=== PATIENT | female | born 1950 | race Caucasian/White ===

== ENCOUNTER 2020-11-29 15:23 | Outpatient (RCR) | payer MEDICARE, SELFPAY ==
[2016-10-19 19:54] VITALS: BMI 23.1
== END 2020-11-29 23:59 ==
LOC: IMMUN 15:23
PROVIDERS: PCP Internal Medicine; Referring Provider Family Medicine; Visit Provider Family Medicine
DX: Z23 Encounter for immunization (principal)
CPT/HCPCS: 0011A; 0012A; 91301

== ENCOUNTER 2023-04-08 18:58 | Inpatient (IN) | payer MEDICARE, SELFPAY ==
[2023-04-08 19:00] VITALS: BP 72/48; PULSE 125; RESP 16; TEMP 36.6; O2SAT 93; BMI 18.3
--- NOTE | 2023-04-08 19:02 | EDS_ITS ---
HPI History of Present Illness Chief Complaint: Hypotension [facility] Medical History (Updated 04/08/23 @ 22:[address] Lucho Moeller MD) Rheumatoid arthritis Skin cancer Home Medications Ibandronate Sodium [Boniva] 150 mg PO Q30D 10/19/16 [History Last Taken Unknown] Omeprazole [Prilosec] 40 mg PO DAILY 10/19/16 [History Last Taken Unknown] acetaminophen 500 mg tablet 500 mg PO QHS 10/19/16 [History Last Taken Unknown] aspirin 81 mg chewable tablet 81 mg PO DAILY@0800 10/19/16 [History Last Taken Unknown] benzonatate 100 mg capsule 100 mg PO 4X/DAY PRN PRN Cough ##20 10/19/16 [Rx Last Taken Unknown] calcium carbonate 600 mg calcium (1,500 mg) tablet 600 mg PO DAILY 10/19/16 [History Last Taken Unknown] cholecalciferol (vitamin D3) 125 mcg (5,000 unit) capsule 5,000 unit PO DAILY 10/19/16 [History Last Taken Unknown] levothyroxine 100 mcg tablet 100 mcg PO DAILY 10/19/16 [History Last Taken Unknown] rosuvastatin 10 mg tablet 10 mg PO DAILY 10/19/16 [History Last Taken Unknown] Allergy/AdvReac Type Severity Reaction Status Date / Time Penicillins Allergy Unknown Verified 04/08/23 19:05 Family History (Updated 04/08/23 @ 22:[address] Lucho Moeller MD) Other Colon cancer Heart disease Rheumatoid arthritis Surgical History (Updated 04/08/23 @ 22:[address] Lucho Moeller MD) H/O wrist surgery History of ankle surgery Social History Smoking Status: Former smoker EXAM Physical Exam Const Vital Signs: 04/08/23 19:00 04/08/23 19:08 04/08/23 19:09 Temperature 98 F Temperature Source Temporal Pulse Rate 125 H 118 H Respiratory Rate 16 24 H Respiratory Effort Respiratory Pattern Blood Pressure 72/48 L 71/47 L Blood Pressure Mean 56 55 Pulse Ox 93 97 Oxygen Delivery Method Room Air Room Air Nasal Cannula Oxygen Flow Rate (L/min) 2 04/08/23 19:34 04/08/23 19:36 04/08/23 19:46 Temperature 97.2 F L Temperature Source Temporal Pulse Rate 114 H 106 H Respiratory Rate 22 H 20 H Respiratory Effort Normal Non-Labored Respiratory Pattern Normal Blood Pressure 109/84 H 125/64 H Blood Pressure Mean 92 84 Pulse Ox 97 100 Oxygen Delivery Method Nasal Cannula Nasal Cannula Oxygen Flow Rate (L/min) 2 2 04/08/23 20:00 Temperature 99.2 F H Temperature Source Core Pulse Rate 108 H Respiratory Rate 23 H Respiratory Effort Respiratory Pattern Blood Pressure 94/60 Blood Pressure Mean 71 Pulse Ox 98 Oxygen Delivery Method Nasal Cannula Oxygen Flow Rate (L/min) 2 MDM MDM MDM Narrative Medical decision making narrative: HISTORY OF PRESENT ILLNESS: 72-year-old female here with nausea vomiting and loss of consciousness. This occurred prior to arrival. Per EMS patient was initially hypotensive. Then went unresponsive. Per patient's family she been having nausea and vomiting for the past 2 days. They also note abdominal pain. They state the patient passed out prior to arrival. Patient complains of abdominal pain nausea and vomiting and feeling dehydrated. REVIEW OF SYSTEMS: Pertinent positives: Abdominal pain, syncope Pertinent negatives: Chest pain PHYSICAL EXAM: Nursing triage notes reviewed, Vital signs reviewed Constitutional: please see mdm, cachectic, chronically ill-appearing HENT: Dry mucous membranes Eyes: Pupils equal round and reactive to light, Extraocular muscles intact Neck: No stridor, no JVD, full neck ROM Lungs: Lungs clear Heart: Heart S1-S2, no murmurs Abdomen: Diffusely tender, right inguinal hernia that is not fully reducible no overlying skin changes : No CVAT Extremities: No edema Neuro: No focal neurological deficits, cranial nerves II through XII intact, 5/5 strength in all extremities. Intact sensation to light touch in all extremities, 2+ reflexes bilateral patella tendons. Normal gait. No ataxia. Skin: Skin pallor noted MEDICAL DECISION MAKING: Chief Complaint: Syncope, hypotension, abdominal pain External records reviewed: No recent advanced imaging of the chest abdomen or pelvis Factors affecting care: GERD, history of ovarian surgery Social determinants of health: Former smoker History obtained from others: The patient's family, EMS Consults: General surgery ALL IMAGES (IF OBTAINED) HAVE BEEN PERSONALLY REVIEWED AND INTERPRETED BY MYSELF. EKG with sinus tachycardia, normal axis, prolonged QT, no STEMI CBC with leukocytosis suggestive of systemic inflammation, elevated hemoglobin suggestive of severe dehydration and hemoconcentration, no significant th rombocytopenia noted CMP with hypokalemia, acute kidney injury, elevated and anion gap suggesting endorgan hypoperfusion, no obvious panlobular pathology Lactate elevated concerning for endorgan hypoperfusion Troponin elevated concerning for myocardial ischemia in the setting of hypotension likely type II demand ischemia rather than coronary artery occlusion Lipase is wnl indicating no pancreatic inflammation. Serum alcohol negative Magnesium is within normal limits MDM Narrative: Patient was initially hypotensive tachycardic fatigue responding only to light stimulus. No obvious focal neurologic deficits patient. More diffusely encephalopathic. Her abdomen was diffusely tender. I noted a hernia in the right lower quadrant. I considered the following differential diagnosis: Small bowel obstruction, dissection, PE, perforation, pancreatitis, Patient presents resuscitated with IV fluids. I performed a sepsis work-up given hypotension and tachycardia. She was taken urgently to CT. CT showed evidence of small bowel obstruction secondary to a right inguinal hernia. CT did not show evidence of PE or dissection. AAA. On further assessment patient's right inguinal hernia was not reducible. Did consult general surgery Dr. Johnson. He evaluated patient in the emergency department. He cannot reduce patient's hernia. He recommended acute surgery. Given the patient's vi enrico sign abnormalities a central line was placed in the right internal jugular vein. Please see below procedure note. Levophed was ordered and is hanging at the patient's bedside. Given hypokalemia she was given IV potassium at 20 mEq/h. She was given broad-spectrum antibiotics given severe lactate elevation, leukocytosis and signs of endorgan hypoperfusion and sepsis. She was taken to the operating room in guarded condition. The patient and/or family, caregivers express understanding. The patient and/or family, caregivers agrees with the plan. Total critical care time today provided was at least 60 minutes. This excludes separately billable procedures. Critical care time (if documented) is secondary to the patient having high probability of clinically significant/life threatening deterioration in the patient's condition which required my urgent intervention. Shared decision making: I will have a discussion with the patient and or visitors regarding risk/benefits of further testing or admission. They will be made aware of of the risk/benefits inherent in this decision they will be given the opportunity to voice understanding. Procedure: Central line placement. Indication: Venous Access Consent: Written. Risks of bleeding, infection, and pneumothorax were explained. A time out was completed. Maximal sterile barrier technique was used including cap, gown, sterile gloves, large sheet, hand washing and chlorhexidine prep. Anesthesia: The area anesthetized with 1% lidocaine. Procedure: The Right internal jugular vein was punctured with a 19 gauge finder needle, then a wire introducer was placed, a 7 [place] triple lumen catheter was placed using Seldinger technique. There were no complications. Blood return was low pressure and non-pulsatile dark blood. Line secured in place with suture, and a sterile bio-occlusive dressing was applied. Patient tolerated procedure well. The procedure was performed by Ruben Post DO Lab Data Attestation: I reviewed the patient's lab results. Labs: Laboratory Results - last 24 hr 04/08/23 04/08/23 04/08/23 19:15 19:34 19:40 WBC 17.7 H RBC 5.43 H Hgb 17.5 H Hct 53.1 H MCV 97.8 MCH 32.2 H MCHC 33.0 RDW Std Deviation 50.0 H RDW Coeff of Loyda 13.8 Plt Count 349 MPV 11.7 Immature Gran % (Auto) 1.900 H Neut % (Auto) 86.6 H Lymph % (Auto) 4.2 L [place] % (Auto) 6.5 Eos % (Auto) 0.6 Baso % (Auto) 0.2 Absolute Neuts (auto) 15.3 H Absolute Lymphs (auto) 0.75 L Nucleated RBC % 0 PT 14.5 INR 1.1 APTT 26.3 Sodium 139 Potassium 2.4 L* Chloride 102 Carbon Dioxide 16.0 L Anion Gap 21 H BUN 23 H Creatinine 2.85 H Estim Creat Clear Calc 13.72 Est GFR (MDRD) Af Amer 21 L Est GFR (MDRD) Non-Af 17 L BUN/Creatinine Ratio 8.1 L Glucose 241 H Lactic Acid 13.6 H* Calcium 11.0 H Magnesium 2.4 Total Bilirubin 0.30 AST 21 ALT 18 Alkaline Phosphatase 104 Troponin I High Sens 128 H* Total Protein 7.2 Albumin 3.4 Globulin 3.8 Albumin/Globulin Ratio 0.9 Lipase 25 TSH 3.59 Free T4 1.12 Urine Color Yellow Urine Clarity Clear Urine pH 7.0 Ur Specific [place] 1.005 Urine Protein 100 H Urine Glucose (UA) 50 H Urine Ketones 5 H Urine Occult Blood 50 H Urine Nitrite Negative Urine Bilirubin Negative Urine Urobilinogen Normal Ur Leukocyte Esterase Negative Urine RBC 0 SEEN Urine WBC 0 SEEN Ur Squamous Epith Cells 0 SEEN Urine Bacteria 0 SEEN Urine Mucus 0 SEEN Ethyl Alcohol < 3.0 POC Glucose 187 H Radiography Diagnostic Testing: Clinical Impression(s) from Imaging Studies Chest/Abdomen/Pelvis CTA 04/08/23 19:15 IMPRESSION: No demonstrated pulmonary embolism or arterial dissection. There are no acute findings. STUDY: CTA Chest and CTA Abdomen and Pelvis W/ Contrast Injection (and W/O Contrast Images if performed) 04/08/2023 7:54 PM REASON FOR EXAM: Female, 72 years old. pain hypotension, abdominal pain Individualized dose optimization techniques were used for this CT. COMPARISON: None. TECHNIQUE: CTA Chest and CTA Abdomen and Pelvis W/ Contrast Injection (and W/O Contrast Images if performed) IV 100mL Isovue-370 FINDINGS: There are atherosclerotic calcifications of visualized coronary arteries. The visualized portions of the heart are within normal limits. Normal liver. Normal gallbladder and extrahepatic biliary system. Normal spleen. Normal pancreas. Normal bilateral adrenal glands. Mild ascites. There are hypodensities in the right kidney. These are consistent for cysts. No follow up required. No acute findings of the left kidney. There is a large hiatal hernia composed mostly of the fundus of the stomach. There are dilated loops of the small intestine with a non-distended colon consistent with a small bowel obstruction. There is a right inguinal hernia containing a loop of small bowel. This is the location of the transition point for the small bowel obstruction. Strangulation or incarceration is not excluded. Exclusion is based on physical examination. Physical examination may be warranted in individuals with hernias. Surveillance may be warranted in individuals with hernias. Stool throughout the colon. There is non-visualization of the appendix. Focal wall thickening of the antrum of stomach. This can suggest a gastritis. There are calcifications of the abdominal aorta. This is consistent for atherosclerotic disease. There is NO abdominal aortic aneurysm. Vascular workup can be obtained based on clinical correlation. Normal inferior vena cava. Subcentimeter mesenteric lymph nodes. Normal urinary bladder. There is an umbilical hernia containing fat. Normal osseous structures. Celiac and superior mesenteric arteries: There is moderate diffuse narrowing. Inferior mesenteric artery: No demonstrated narrowing. Right renal artery(arteries): No demonstrated narrowing. Left renal artery(arteries): There is mild diffuse narrowing. Right common iliac artery: There is mild diffuse narrowing. Right external iliac artery: There is mild diffuse narrowing. Right internal iliac artery: There is mild diffuse narrowing. Left common iliac artery: There is mild diffuse narrowing. Left external iliac artery: There is mild diffuse narrowing. Left internal iliac artery: There is mild diffuse narrowing. IMPRESSION: (NOT LISTED IN ORDER OF SIGNIFICANCE) There are dilated loops of the small intestine with a non-distended colon consistent with a small bowel obstruction. There is a right inguinal hernia containing a loop of small bowel. This is the location of the transition point for the small bowel obstruction. Strangulation or incarceration is not excluded. Exclusion is based on physical examination Mild ascites. Gastritis. Other findings as above. Electronically Signed: Richard Saab MD at 20:01 EDT , Discharge Plan Disposition Disposition: Acute Care Hospital [facility] Discharge Date/Time: 04/08/23 22:34
--- NOTE | 2023-04-08 19:07 | EKG12_ITS ---
Test Reason : DYSRHYTHMIA Blood Pressure : / mmHG Vent. Rate : 112 BPM Atrial Rate : 112 BPM P-R Int : 130 ms QRS Dur : 080 ms QT Int : 454 ms P-R-T Axes : 064 083 064 degrees QTc Int : 619 ms Sinus tachycardia Otherwise normal ECG Confirmed by JASON ROLDAN, POLI ([id number]), image editor NHI BROCK ([id number]) on 04/09/2023 11:04:40 AM Referred By: WIL Confirmed By:POLI GOMEZ MD
[2023-04-08 19:08] VITALS: BP 71/47; PULSE 118; RESP 24; O2SAT 97
[2023-04-08] MEDS: fentaNYL 100 MCG/2 ML Ampul 25 MCG IV (19:14)
[2023-04-08] MEDS: Ondansetron 4 MG/2 ML Vial IV (19:14)
[2023-04-08] MEDS: 0.9% Normal Saline 1,000 ML 999 ML IV ×3 (19:14→21:30)
--- NOTE | 2023-04-08 19:15 | CT_ITS ---
STUDY: CTA Chest and CTA Abdomen and Pelvis W/ Contrast Injection (and W/O Contrast Images if performed) 04/08/2023 7:54 PM REASON FOR EXAM: Female, 72 years old. hypotension, abdominal pain TECHNIQUE: The examination was performed with the intravenous administration of IV 100mL Isovue-370 contrast material. Post-processing of the angiographic images was performed, with axial imaging and 3D reconstruction. MIPS images were obtained. Individualized dose optimization techniques were used for this CT. COMPARISON: None. FINDINGS: There are degenerative changes of the shoulders. There is no pneumothorax. There is no demonstrated pleural abnormality. There are calcifications of the coronary arteries. Normal mediastinum. Normal hilar regions. Normal pulmonary arteries. There is atherosclerotic calcification of the aortic arch with tortuosity and elongation of the aortic arch and descending thoracic aorta. There are multi-level degenerative changes of the thoracic spine. There is a large hiatal hernia composed mostly of the fundus of the stomach. CT/CTA Chst, Abd, Pel W and/or WO IMPRESSION: No demonstrated pulmonary embolism or arterial dissection. There are no acute findings. STUDY: CTA Chest and CTA Abdomen and Pelvis W/ Contrast Injection (and W/O Contrast Images if performed) 04/08/2023 7:54 PM REASON FOR EXAM: Female, 72 years old. pain hypotension, abdominal pain Individualized dose optimization techniques were used for this CT. COMPARISON: None. TECHNIQUE: CTA Chest and CTA Abdomen and Pelvis W/ Contrast Injection (and W/O Contrast Images if performed) IV 100mL Isovue-370 FINDINGS: There are atherosclerotic calcifications of visualized coronary arteries. The visualized portions of the heart are within normal limits. Normal liver. Normal gallbladder and extrahepatic biliary system. Normal spleen. Normal pancreas. Normal bilateral adrenal glands. Mild ascites. There are hypodensities in the right kidney. These are consistent for cysts. No follow up required. No acute findings of the left kidney. There is a large hiatal hernia composed mostly of the fundus of the stomach. There are dilated loops of the small intestine with a non-distended colon consistent with a small bowel obstruction. There is a right inguinal hernia containing a loop of small bowel. This is the location of the transition point for the small bowel obstruction. Strangulation or incarceration is not excluded. Exclusion is based on physical examination. Physical examination may be warranted in individuals with hernias. Surveillance may be warranted in individuals with hernias. Stool throughout the colon. There is non-visualization of the appendix. Focal wall thickening of the antrum of stomach. This can suggest a gastritis. There are calcifications of the abdominal aorta. This is consistent for atherosclerotic disease. There is NO abdominal aortic aneurysm. Vascular workup can be obtained based on clinical correlation. Normal inferior vena cava. Subcentimeter mesenteric lymph nodes. Normal urinary bladder. There is an umbilical hernia containing fat. Normal osseous structures. Celiac and superior mesenteric arteries: There is moderate diffuse narrowing. Inferior mesenteric artery: No demonstrated narrowing. Right renal artery(arteries): No demonstrated narrowing. Left renal artery(arteries): There is mild diffuse narrowing. Right common iliac artery: There is mild diffuse narrowing. Right external iliac artery: There is mild diffuse narrowing. Right internal iliac artery: There is mild diffuse narrowing. Left common iliac artery: There is mild diffuse narrowing. Left external iliac artery: There is mild diffuse narrowing. Left internal iliac artery: There is mild diffuse narrowing. IMPRESSION: (NOT LISTED IN ORDER OF SIGNIFICANCE) There are dilated loops of the small intestine with a non-distended colon consistent with a small bowel obstruction. There is a right inguinal hernia containing a loop of small bowel. This is the location of the transition point for the small bowel obstruction. Strangulation or incarceration is not excluded. Exclusion is based on physical examination Mild ascites. Gastritis. Other findings as above. Electronically Signed: Richard Saab MD at 20:01 EDT ,
[2023-04-08 19:34] VITALS: BP 109/84; PULSE 114; RESP 22; TEMP 36.2; O2SAT 97
[2023-04-08 19:46] VITALS: BP 125/64; PULSE 106; RESP 20; O2SAT 100
[2023-04-08 19:52] LABS: Bacteria 0 SEEN /hpf (None Seen); Mucous, Urine 0 SEEN /hpf (<or=2+); Red Blood Cells-Urine 0 SEEN /hpf (0-5); Squamous Epithelial Cells - UA 0 SEEN /hpf (5-10); White Blood Cells 0 SEEN /hpf (0-5)
[2023-04-08 19:54] LABS: Bedside Glucose 187 mg/dL (74-106)
[2023-04-08 20:00] VITALS: BP 94/60; PULSE 108; RESP 23; TEMP 37.3; O2SAT 98
[2023-04-08 20:15] LABS: Color, Urine Yellow (Yellow); Glucose, Dipstick 50 mg/dl (Normal); Ketone-Dipstick 5 mg/dl (Negative); Leukocyte Esterase-Dipstick Negative /ul (Negative); Nitrite-Dipstick Negative (Negative); Occult Blood-Urine 50 /ul (Negative); Protein-Dipstick 100 mg/dl (Negative); Specific Gravity, Urine 1.005 (1.002-1.030); Urine Bilirubin Dipstick Negative (Negative); Urine Clarity Clear (Clear); Urine Urobilinogen Normal (Normal)
[2023-04-08 20:18] LABS: International Normalized Ratio 1.1; Prothrombin Time (Protime)PT. 14.5 SECONDS (11.7-14.9)
[2023-04-08 20:19] LABS: Partial Thromboplast Time 26.3 Seconds (24.1-36.2)
[2023-04-08 20:23] LABS: Absolute Lymphocyte Count 0.75 X10^3/uL (0.83-4.51); Absolute Neutrophil Count 15.3 X10^3/uL (2.0-7.7); Basophil# 0.04 X10^3/uL; Basophil% 0.2 % (0-1); Eosinophils% 0.6 % (0-5); Hematocrit 53.1 % (37-47); Hemoglobin 17.5 g/dL (12.0-15.0); Lymphocyte # 0.75 X10^3/ul (0.83-4.51); Lymphocyte % 4.2 % (19-41); Mean Corpuscular Hgb 32.2 pg (27.0-32.0); Mean Corpuscular Volume 97.8 fL (81-99); Mean Platelet Vol. 11.7 fl (6.2-12.0); Monocyte# 1.14 X10^3/uL; Monocyte% 6.5 % (0-10); NRBC Flagged by Analyzer 0 % (0-5); Neutrophil % 86.6 % (47-70); Platelet Count 349 K/mm3 (150-450); RBC Distribution Width CV 13.8 % (11.6-14.6); Red Blood Count 5.43 M/mm3 (4.2-5.4); White Blood Count 17.7 K/mm3 (4.4-11.0)
[2023-04-08 20:39] LABS: Magnesium 2.4 mg/dL (1.6-2.6); T4 Free Direct 1.12 ng/dL (0.76-1.46); Thyroid Stim Hormone (TSH) 3.59 uIU/mL (0.358-3.74)
[2023-04-08 20:47] LABS: ALB/GLOB Ratio 0.9 RATIO (0.9-2.4); AST(SGOT) 21 U/L (15-37); Alanine Aminotransfer ALT/SGPT 18 U/L (13-56); Albumin, Serum 3.4 g/dL (3.2-5.0); Alkaline Phosphatase 104 U/L (45-117); Anion Gap 21 (5-15); BUN 23 mg/dL (7-18); BUN/Creat Ratio 8.1 RATIO (10-20); Chloride 102 mmol/L (98-107); Creatinine, Serum 2.85 mg/dL (0.55-1.02); EST Glomerular Filtration Rate 17 mL/min (>60); Est Glom Filt Rate - Afr Amer 21 mL/min (>60); Estimated Creatinine Clearance 13.72 ml/min; Globulin 3.8 g/dL (2.2-4.2); Glucose 241 mg/dL (74-106); Lactic Acid 13.6 mmol/L (0.4-1.9); Lipase 25 U/L (13-75); Potassium 2.4 mmol/L (3.5-5.1); Protein, Total 7.2 g/dL (6.4-8.2); Sodium Level 139 mmol/L (136-145); Troponin-I HS 128 pg/mL (3.0-54.0)
[2023-04-08 20:56] LABS: Alcohol, Blood (Medical)-Serum < 3.0 mg/dL
[2023-04-08] MEDS: fentaNYL 100 MCG/2 ML Ampul 50 MCG IV (21:21)
--- NOTE | 2023-04-08 21:22 | PCM.CONS.GEN ---
Assessment & Plan Assessment/Plan (1) Right inguinal hernia: (2) Severe sepsis: (3) Elevated troponin: PLAN: Plan Right incarcerated hernia with septic shock The patient presented with sepsis due to (about infection) with acute sepsis related organ dysfunction as evidenced by (lactic acidosis with lactic acid of 13.6; and DIONICIO with creatinine of 2.85). SIRS criteria: Patient with Tmax of 100.7 but with tachycardia with heart rate as high as 125; WBC more than 12,000. Trend CBC. organ dysfunction: SBP less than 90 or MAP less than 65 Initial lactic acid of more than 4 Creatinine of 2.85 on presentation. Procalcitonin returned more than 50. Cefepime and Flagyl ordered. Status post hernia reduction and resection of small bowel. Given suggest primary. Elevated high sensitive troponin: Like secondary to sepsis; trend. Severe protein calorie mentation: Cachectic. BMI of 18.2 kg per metered square. Nutrition consult. DVT prophylaxis: SCDs ordered HPI Consult Data Date of Consult: 04/09/23 HPI Narrative Reason for Consultation: Medical management HPI Narrative: TAYLOR MARSH, is a 72 F with a significant history of rheumatoid arthritis who presents to emergency department with bulging at her right groin. Associated with her symptoms is pain which she rates as 5 out of 10. The pain is sharp. The pain radiates to her mid abdomen and into her lower back. She denies any aggravating factors to the pain. The pain improves with IcyHot application. Associated with her symptom is nausea and vomiting. Reported patient positive before she came to the hospital. At the emergency department she was hypotensive and she was fluid resuscitated. [facility] Medical History Rheumatoid arthritis Skin cancer Home Medications Ibandronate Sodium [Boniva] 150 mg PO Q30D 10/19/16 [History Last Taken Unknown] Omeprazole [Prilosec] 40 mg PO DAILY 10/19/16 [History Last Taken Unknown] acetaminophen 500 mg tablet 500 mg PO QHS 10/19/16 [History Last Taken Unknown] aspirin 81 mg chewable tablet 81 mg PO DAILY@0800 10/19/16 [History Last Taken Unknown] benzonatate 100 mg capsule 100 mg PO 4X/DAY PRN PRN Cough ##20 10/19/16 [Rx Last Taken Unknown] calcium carbonate 600 mg calcium (1,500 mg) tablet 600 mg PO DAILY 10/19/16 [History Last Taken Unknown] cholecalciferol (vitamin D3) 125 mcg (5,000 unit) capsule 5,000 unit PO DAILY 10/19/16 [History Last Taken Unknown] levothyroxine 100 mcg tablet 100 mcg PO DAILY 10/19/16 [History Last Taken Unknown] rosuvastatin 10 mg tablet 10 mg PO DAILY 10/19/16 [History Last Taken Unknown] Allergy/AdvReac Type Severity Reaction Status Date / Time Penicillins Allergy Unknown Verified 04/08/23 19:05 Family History Other Colon cancer Heart disease Rheumatoid arthritis Surgical History H/O wrist surgery History of ankle surgery Social History Smoking Status: Former smoker ROS ROS Narrative Pertinent positives and pertinent negatives as noted in HPI. All other systems were reviewed and are negative Physical Exam Narrative Physical exam: General: Well-nourished, well-developed. Head: Normocephalic, atraumatic, no tenderness Eyes: Vision is grossly intact. EOMI ENT, no trauma, dry mucous membranes, no rhinorrhea Neck: Nontender, No thyromegaly. CVS: Regular rate and rhythm. S1-S2 present. No murmur, gallop or rub. Respiratory : clear to auscultation bilaterally, chest wall nontender Abdomen: Soft, tender, distended, normal bowel sounds, no masses : Deferred Back: Nontender, no CVA tenderness Extremities: Cachectic. Nontender full range of motion, no trauma Skin: Normal color, no trauma, abrasions Neuro: Alert, oriented, cranial nerves II through XII grossly intact. Psychiatry: Normal mood. Normal affect. Not depressed. Not anxious. Lab / Micro Data 04/09/23 03:20 04/09/23 00:50 Labs: Laboratory Results - last 24 hr 04/08/23 19:15: WBC 17.7 H, RBC 5.43 H, Hgb 17.5 H, Hct 53.1 H, MCV 97.8, MCH 32.2 H, MCHC 33.0, RDW Std Deviation 50.0 H, RDW Coeff of Loyda 13.8, Plt Count 349, MPV 11.7, Immature Gran % (Auto) 1.900 H, Neut % (Auto) 86.6 H, Lymph % (Auto) 4.2 L, Garvin % (Auto) 6.5, Eos % (Auto) 0.6, Baso % (Auto) 0.2, Absolute Neuts (auto) 15.3 H, Absolute Lymphs (auto) 0.75 L, Nucleated RBC % 0, PT 14.5, INR 1.1, APTT 26.3, Sodium 139, Potassium 2.4 L*, Chloride 102, Carbon Dioxide 16.0 L, Anion Gap 21 H, BUN 23 H, Creatinine 2.85 H, Estim Creat Clear Calc 13.72, Est GFR (MDRD) Af Amer 21 L, Est GFR (MDRD) Non-Af 17 L, BUN/Creatinine Ratio 8.1 L, Glucose 241 H, Lactic Acid 13.6 H*, Calcium 11.0 H, Magnesium 2.4, Total Bilirubin 0.30, AST 21, ALT 18, Alkaline Phosphatase 104, Troponin I High Sens 128 H*, Total Protein 7.2, Albumin 3.4, Globulin 3.8, Albumin/Globulin Ratio 0.9, Lipase 25, TSH 3.59, Free T4 1.12, Ethyl Alcohol < 3.0 04/08/23 19:34: POC Glucose 187 H 04/08/23 19:40: Urine Color Yellow, Urine Clarity Clear, Urine pH 7.0, Ur Specific [place] 1.005, Urine Protein 100 H, Urine Glucose (UA) 50 H, Urine Ketones 5 H, Urine Occult Blood 50 H, Urine Nitrite Negative, Urine Bilirubin Negative, Urine Urobilinogen Normal, Ur Leukocyte Esterase Negative, Urine RBC 0 SEEN, Urine WBC 0 SEEN, Ur Squamous Epith Cells 0 SEEN, Urine Bacteria 0 SEEN, Urine Mucus 0 SEEN Radiology Impression Chest/Abdomen/Pelvis CTA 04/08/23 19:15 IMPRESSION: No demonstrated pulmonary embolism or arterial dissection. There are no acute findings. STUDY: CTA Chest and CTA Abdomen and Pelvis W/ Contrast Injection (and W/O Contrast Images if performed) 04/08/2023 7:54 PM REASON FOR EXAM: Female, 72 years old. pain hypotension, abdominal pain Individualized dose optimization techniques were used for this CT. COMPARISON: None. TECHNIQUE: CTA Chest and CTA Abdomen and Pelvis W/ Contrast Injection (and W/O Contrast Images if performed) IV 100mL Isovue-370 FINDINGS: There are atherosclerotic calcifications of visualized coronary arteries. The visualized portions of the heart are within normal limits. Normal liver. Normal gallbladder and extrahepatic biliary system. Normal spleen. Normal pancreas. Normal bilateral adrenal glands. Mild ascites. There are hypodensities in the right kidney. These are consistent for cysts. No follow up required. No acute findings of the left kidney. There is a large hiatal hernia composed mostly of the fundus of the stomach. There are dilated loops of the small intestine with a non-distended colon consistent with a small bowel obstruction. There is a right inguinal hernia containing a loop of small bowel. This is the location of the transition point for the small bowel obstruction. Strangulation or incarceration is not excluded. Exclusion is based on physical examination. Physical examination may be warranted in individuals with hernias. Surveillance may be warranted in individuals with hernias. Stool throughout the colon. There is non-visualization of the appendix. Focal wall thickening of the antrum of stomach. This can suggest a gastritis. There are calcifications of the abdominal aorta. This is consistent for atherosclerotic disease. There is NO abdominal aortic aneurysm. Vascular workup can be obtained based on clinical correlation. Normal inferior vena cava. Subcentimeter mesenteric lymph nodes. Normal urinary bladder. There is an umbilical hernia containing fat. Normal osseous structures. Celiac and superior mesenteric arteries: There is moderate diffuse narrowing. Inferior mesenteric artery: No demonstrated narrowing. Right renal artery(arteries): No demonstrated narrowing. Left renal artery(arteries): There is mild diffuse narrowing. Right common iliac artery: There is mild diffuse narrowing. Right external iliac artery: There is mild diffuse narrowing. Right internal iliac artery: There is mild diffuse narrowing. Left common iliac artery: There is mild diffuse narrowing. Left external iliac artery: There is mild diffuse narrowing. Left internal iliac artery: There is mild diffuse narrowing. IMPRESSION: (NOT LISTED IN ORDER OF SIGNIFICANCE) There are dilated loops of the small intestine with a non-distended colon consistent with a small bowel obstruction. There is a right inguinal hernia containing a loop of small bowel. This is the location of the transition point for the small bowel obstruction. Strangulation or incarceration is not excluded. Exclusion is based on physical examination Mild ascites. Gastritis. Other findings as above. Electronically Signed: Richard Saab MD at 20:01 EDT , Sepsis Attestation Sepsis Alert: Yes Sepsis Attestation: Agree w/Sepsis Date exam was performed: 04/08/23 Time exam was performed: 11:00 Possible Source of Sepsis: GI tract/intra-abdominal Sepsis Organ Dysfunction Criteria Present: SBP < 90 mmHg or MAP < 65 mmHg, Creatinine > 2.0 mg/dL and Lactic Acid > 2 mmol/L Fluid Resuscitation Fluid resuscitation indicated?: Yes Fluid Resuscitation ordered: 30 ml/kg fluid bolus ordered Amount of fluid ordered: 2,600 Sepsis Note Sepsis Attestation: Sepsis re-evaluation was performed Response to fluids: Fluid responsive hypotension and Vasopressors started Charges/Coding Visit Charges Inpatient E&M: 12792 Init Hosp L3
--- NOTE | 2023-04-08 21:34 | HP.PCM.SX_ITS ---
HPI - General HPI Narrative TAYLOR MARSH, is a 72 F who presents abdominal pain. The patient reports that she has been having right groin bulging since Friday. Patient reports nausea and vomiting at home. [facility] Home Medications Ibandronate Sodium [Boniva] 150 mg PO Q30D 10/19/16 [History Last Taken Unknown] Omeprazole [Prilosec] 40 mg PO DAILY 10/19/16 [History Last Taken Unknown] acetaminophen 500 mg tablet 500 mg PO QHS 10/19/16 [History Last Taken Unknown] aspirin 81 mg chewable tablet 81 mg PO DAILY@0800 10/19/16 [History Last Taken Unknown] benzonatate 100 mg capsule 100 mg PO 4X/DAY PRN PRN Cough ##20 10/19/16 [Rx Last Taken Unknown] calcium carbonate 600 mg calcium (1,500 mg) tablet 600 mg PO DAILY 10/19/16 [History Last Taken Unknown] cholecalciferol (vitamin D3) 125 mcg (5,000 unit) capsule 5,000 unit PO DAILY 10/19/16 [History Last Taken Unknown] levothyroxine 100 mcg tablet 100 mcg PO DAILY 10/19/16 [History Last Taken Unknown] rosuvastatin 10 mg tablet 10 mg PO DAILY 10/19/16 [History Last Taken Unknown] Allergy/AdvReac Type Severity Reaction Status Date / Time Penicillins Allergy Unknown Verified 04/08/23 19:05 Social History Smoking Status: Former smoker ROS Constitutional Constitutional: Reports anorexia; Denies chills, fatigue or fever(s) Eyes Eyes: Denies blurry vision ENT HEENT: Denies abnormal hearing Cardiovascular Cardiovascular: Denies chest pain Respiratory/Chest Respiratory/Chest: Denies cough or dyspnea Gastrointestinal Gastrointestinal: Reports abdominal pain, nausea and vomiting Genitourinary Genitourinary: Denies change in urinary stream Musculoskeletal Musculoskeletal: Denies abnormal gait Integumentary Integumentary: Denies jaundice Neurologic Neurologic: Denies abnormal gait Psychiatric Psychiatric: Denies anxiety Vital Signs Vital Signs Vital Signs: 04/08/23 19:00 04/08/23 19:08 04/08/23 19:09 Temperature 98 F Temperature Source Temporal Pulse Rate 125 H 118 H Respiratory Rate 16 24 H Respiratory Effort Respiratory Pattern Blood Pressure 72/48 L 71/47 L Blood Pressure Mean 56 55 Pulse Ox 93 97 Oxygen Delivery Method Room Air Room Air Nasal Cannula Oxygen Flow Rate (L/min) 2 04/08/23 19:34 04/08/23 19:36 04/08/23 19:46 Temperature 97.2 F L Temperature Source Temporal Pulse Rate 114 H 106 H Respiratory Rate 22 H 20 H Respiratory Effort Normal Non-Labored Respiratory Pattern Normal Blood Pressure 109/84 H 125/64 H Blood Pressure Mean 92 84 Pulse Ox 97 100 Oxygen Delivery Method Nasal Cannula Nasal Cannula Oxygen Flow Rate (L/min) 2 2 04/08/23 20:00 Temperature 99.2 F H Temperature Source Core Pulse Rate 108 H Respiratory Rate 23 H Respiratory Effort Respiratory Pattern Blood Pressure 94/60 Blood Pressure Mean 71 Pulse Ox 98 Oxygen Delivery Method Nasal Cannula Oxygen Flow Rate (L/min) 2 Weight Weight: 110 lb 10.753 oz Body Mass Index (BMI) 18.3 Physical Exam Const oriented x3 General Appearance: ill appearing Resp normal respiratory effort Cardio Rate: tachycardic GI soft to palpation Palpation: tender other (Right groin tenderness with bulge that is not reducible) Results Lab / Micro Data 04/08/23 19:15 04/08/23 19:15 Labs: Laboratory Results - last 24 hr 04/08/23 19:15: WBC 17.7 H, RBC 5.43 H, Hgb 17.5 H, Hct 53.1 H, MCV 97.8, MCH 32.2 H, MCHC 33.0, RDW Std Deviation 50.0 H, RDW Coeff of Loyda 13.8, Plt Count 349, MPV 11.7, Immature Gran % (Auto) 1.900 H, Neut % (Auto) 86.6 H, Lymph % (Auto) 4.2 L, [place] % (Auto) 6.5, Eos % (Auto) 0.6, Baso % (Auto) 0.2, Absolute Neuts (auto) 15.3 H, Absolute Lymphs (auto) 0.75 L, Nucleated RBC % 0, PT 14.5, INR 1.1, APTT 26.3, Sodium 139, Potassium 2.4 L*, Chloride 102, Carbon Dioxide 16.0 L, Anion Gap 21 H, BUN 23 H, Creatinine 2.85 H, Estim Creat Clear Calc 13.72, Est GFR (MDRD) Af Amer 21 L, Est GFR (MDRD) Non-Af 17 L, BUN/Creatinine Ratio 8.1 L, Glucose 241 H, Lactic Acid 13.6 H*, Calcium 11.0 H, Magnesium 2.4, Total Bilirubin 0.30, AST 21, ALT 18, Alkaline Phosphatase 104, Troponin I High Sens 128 H*, Total Protein 7.2, Albumin 3.4, Globulin 3.8, Albumin/Globulin Ratio 0.9, Lipase 25, TSH 3.59, Free T4 1.12, Ethyl Alcohol < 3.0 04/08/23 19:34: POC Glucose 187 H 04/08/23 19:40: Urine Color Yellow, Urine Clarity Clear, Urine pH 7.0, Ur Specific [place] 1.005, Urine Protein 100 H, Urine Glucose (UA) 50 H, Urine Ketones 5 H, Urine Occult Blood 50 H, Urine Nitrite Negative, Urine Bilirubin Negative, Urine Urobilinogen Normal, Ur Leukocyte Esterase Negative, Urine RBC 0 SEEN, Urine WBC 0 SEEN, Ur Squamous Epith Cells 0 SEEN, Urine Bacteria 0 SEEN, Urine Mucus 0 SEEN Radiology Impression Chest/Abdomen/Pelvis CTA 04/08/23 19:15 IMPRESSION: No demonstrated pulmonary embolism or arterial dissection. There are no acute findings. STUDY: CTA Chest and CTA Abdomen and Pelvis W/ Contrast Injection (and W/O Contrast Images if performed) 04/08/2023 7:54 PM REASON FOR EXAM: Female, 72 years old. pain hypotension, abdominal pain Individualized dose optimization techniques were used for this CT. COMPARISON: None. TECHNIQUE: CTA Chest and CTA Abdomen and Pelvis W/ Contrast Injection (and W/O Contrast Images if performed) IV 100mL Isovue-370 FINDINGS: There are atherosclerotic calcifications of visualized coronary arteries. The visualized portions of the heart are within normal limits. Normal liver. Normal gallbladder and extrahepatic biliary system. Normal spleen. Normal pancreas. Normal bilateral adrenal glands. Mild ascites. There are hypodensities in the right kidney. These are consistent for cysts. No follow up required. No acute findings of the left kidney. There is a large hiatal hernia composed mostly of the fundus of the stomach. There are dilated loops of the small intestine with a non-distended colon consistent with a small bowel obstruction. There is a right inguinal hernia containing a loop of small bowel. This is the location of the transition point for the small bowel obstruction. Strangulation or incarceration is not excluded. Exclusion is based on physical examination. Physical examination may be warranted in individuals with hernias. Surveillance may be warranted in individuals with hernias. Stool throughout the colon. There is non-visualization of the appendix. Focal wall thickening of the antrum of stomach. This can suggest a gastritis. There are calcifications of the abdominal aorta. This is consistent for atherosclerotic disease. There is NO abdominal aortic aneurysm. Vascular workup can be obtained based on clinical correlation. Normal inferior vena cava. Subcentimeter mesenteric lymph nodes. Normal urinary bladder. There is an umbilical hernia containing fat. Normal osseous structures. Celiac and superior mesenteric arteries: There is moderate diffuse narrowing. Inferior mesenteric artery: No demonstrated narrowing. Right renal artery(arteries): No demonstrated narrowing. Left renal artery(arteries): There is mild diffuse narrowing. Right common iliac artery: There is mild diffuse narrowing. Right external iliac artery: There is mild diffuse narrowing. Right internal iliac artery: There is mild diffuse narrowing. Left common iliac artery: There is mild diffuse narrowing. Left external iliac artery: There is mild diffuse narrowing. Left internal iliac artery: There is mild diffuse narrowing. IMPRESSION: (NOT LISTED IN ORDER OF SIGNIFICANCE) There are dilated loops of the small intestine with a non-distended colon consistent with a small bowel obstruction. There is a right inguinal hernia containing a loop of small bowel. This is the location of the transition point for the small bowel obstruction. Strangulation or incarceration is not excluded. Exclusion is based on physical examination Mild ascites. Gastritis. Other findings as above. Electronically Signed: Richard Saab MD at 20:01 EDT , Assessment & Plan Assessment/Plan (1) Right inguinal hernia: PLAN: Patient has a strangulated right inguinal hernia causing bowel obstruction. She also has sepsis with an elevated white count, elevated creat inine, elevated troponin, low potassium, hypotension, tachycardia. Patient is getting a central line in the ER currently. CT scan reveals small bowel obstruction with a transition point the right inguinal hernia. I am unable to reduce the right inguinal hernia. It is very tender. I will replace her potassium as fast as possible and get her to the operating room for exploratory laparotomy with reduction of the hernia and possible bowel resection and possible repair of this right inguinal hernia. I will place the patient in the ICU after surgery. I discussed this with the patient and the patient's family. They consented for surgery. I discussed the risks including but not limited to bleeding, infection, heart attack or , need for bowel resection, injury to other organs such as the bowel, bladder, ureter, blood supply to the leg. Patient understands the risks and is willing to proceed. Domingo Johnson MD Pager: [facility] [address] [place] [address] [address] [place] [address] Office:
--- NOTE | 2023-04-08 21:53 | RAD_ITS ---
EXAM: XR CHEST, 1 VIEW CLINICAL INDICATION: central line placement TECHNIQUE: Frontal view of the chest. COMPARISON: Previous chest radiographs of 10/19/2016 and 09/05/2015. FINDINGS: LUNGS AND PLEURAL SPACES: Biapical pleural parenchymal scarring is again noted. No acute pulmonary infiltrates or pleural effusions. No pneumothorax. No effusion. HEART: Normal heart size and pulmonary vasculature. MEDIASTINUM: Central airways and mediastinal contour are unremarkable. BONES/JOINTS: Lower cervical and thoracic degenerative changes. SOFT TISSUES: Chronic mild elevation of the right hemidiaphragm. TUBES, LINES AND DEVICES: Right jugular venous catheter has been inserted with the catheter tip projected over the right atrium. RAD/CXR for Line Placement IMPRESSION: Right jugular venous catheter in place, with the catheter tip projected over the right atrium. No pneumothorax. Electronically Signed: Mil Kennedy MD at 23:00 EDT ,
[2023-04-08] MEDS: Potassium Chloride 10mEq/100mL 10 MEQ/100 ML IV.SOLN. 200 MEQ IV BOLUS (21:58)
[2023-04-08] MEDS: metroNIDAZOLE 500 MG/100 ML BAG 100 MG IV (22:03)
[2023-04-08 22:20] VITALS: BP 119/74; PULSE 103; RESP 22; TEMP 37.7; O2SAT 100
--- NOTE | 2023-04-08 22:35 | COL_PTH ---
PATIENT: TAYLOR MARSH LOC: [facility] U#:[id number] AGE/SX: 72/F ROOM: [facility] RE04/08/[address]: Dr. Domingo Johnson MD : [id number] BED: 1 DIS: 04/18/2023 SPEC #: [id number] RECD: 04/09/23 10:38 STATUS: RYLAN ANDRADE #: [id number] REBEKAH: 04/08/23 22:[address]: Domingo Johnson DEPT: SURGICAL PATHOLOGY RECD BY: Heidi Middleton ENTERED: 04/09/23 13:05 SP TYPE: COLON OTHR DR: MD Dr. Tanya Bergman MD Dr. Derek Brown, DO Dr. Joseph Agyepong, MD Dr. Kathryn Lee, DO Dr. Lee Ann Baggott, MD Dr. Tanmay Panchabhai, MD Christina Muller, CAPACITY PLANNING ANALYST-C Tissues: Colon, NOS Procedures: Surgery Specimen Level V HEADER OPERATION: Exploratory laparotomy, SBO, art-line placement PRE-OP DIAGNOSIS: Right inguinal hernia TISSUE SUBMITTED: Small bowel segment MICROSCOPIC DIAGNOSIS Small bowel, segmental resection: Consistent with ischemic necrosis of bowel with associated acute and chronic inflammation. Serosa with acute serositis. Vascular congestion of bowel wall. See Comment. AM:johana 04/11/2023 COMMENT Resection margin opposite normal appearing bowel portion contains ischemic change and acute enteritis. Clinical correlation is suggested. Case has been reviewed in consultation with Dr. Méndez who concurs with the above diagnosis. IDC:[email or web address] MICROSCOPIC DESCRIPTION Slides are reviewed. GROSS DESCRIPTION Received in fixative is one container labeled with the patient's name and designated small bowel segment. The specimen consists of a segment of small bowel measuring 10.5 cm in length and up to 3.0 cm in diameter. Attached mesenteric tissue measures up to 0.5 cm in width. Both resection margins are stapled. The serosal surface is dusky. The mucosa is congested and thin. A 2.0 cm portion of the mucosa appears unremarkable. The rest of the mucosa is congested with flattened mucosal fold. Also present in the container is a donut-shaped piece of tissue measuring 4.0 x 2.0 x 1.0 cm. The lumen contains hemorrhagic fecal material. Sections will be submitted after fixation. / HADLEY:johana 04/09/2023 Oven Drier Tender sections are submitted in five cassettes as follows: 1 - donut-shaped piece of tissue, 2??resection margin adjacent to the normal appearing mucosa is inked black, 3 & 4 - bowel wall with flattened mucosal fold, 5 - customer service representative section of the normal appearing mucosa fold and mesenteric tissue. / HADLEY:johana 04/10/2023 TC:2 CPT: 77363
[2023-04-08 23:22] LABS: Reflex Lactate? Y
[2023-04-08] MEDS: Bupivacaine Mpf 0.5% 30 ML VIAL (23:33)
[2023-04-09] VITALS (47 sets, daily range): BP systolic 77–139; BP diastolic 43–74; PULSE 76–124; RESP 19–30; TEMP 37.4–38.5; O2SAT 92–100; BMI 18.1; BMI 18.4
--- NOTE | 2023-04-09 00:12 | OP.PCM_ITS ---
Report of Operation Date of Procedure: 04/09/23 Pre-Operative Diagnosis: Small bowel obstruction due to a strangulated right in guinal hernia Post-Operative Diagnosis: Same Surgery/Procedure Performed:: Exploratory laparotomy with resection of small bowel segment Specimen's removed: Small bowel segment Description of Procedure: Patient was brought back to the operating room and general anesthesia was induced. Right arterial line was placed. The abdomen was prepped and draped in usual sterile fashion. Midline incision was made inferior to the umbilicus. The fascia was elevated and incised. After the abdomen was entered a finger was used to block the bowel and the fascia was opened superiorly and inferiorly using electrocautery. The right lower quadrant was inspected and using pressure from the outside and pulling from the inside the bowel was able to be reduced. It appeared to be early necrotic. The inguinal hernia peritoneum was sutured closed using two 3-0 Vicryl sutures to prevent further bowel from incarcerating. Next a window was made in the mesentery proximal and distal to the necrotic segment. Using a JASON stapler this segment was removed. LigaSure impact was used to take down the mesentery. The corner of each staple line was then removed and a stapler was used to create a [id number] functional end-to-end anastomosis. Staple line was inspected and appeared to be hemostatic. A TX 60 was used to close the enterostomy. 3-0 silk suture was used to place a crotch stitch and to reinforce the staple line. 3-0 Vicryl suture was used to close the mesenteric defect. The bowel was returned to the abdomen and then the entire bowel was run from ligament of Treitz to the terminal ileum and it was ensured that there was no twisting. The abdomen was then irrigated and suctioned dry. The omentum was draped over the bowel. The fascia was closed with running 0 PDS suture from the top and bottom meeting in the middle. Subcutaneous tissue was irrigated and the skin was injected with local anesthetic. Skin francisco were used to close the skin. The patient was then taken to ICU. Admit VTE Documentation VTE Mechan Device Prophylaxis: SCD's
--- NOTE | 2023-04-09 00:29 | RAD_ITS ---
We are attempting to reach an attending provider to discuss findings. An addendum with communication details will be sent when the communication is complete. EXAM: XR CHEST, 1 VIEW CLINICAL INDICATION: Right IJ CVC pulled back 5cm TECHNIQUE: Frontal view of the chest. 12:31 AM. COMPARISON: Previous chest radiograph of 04/08/2023. CT chest abdomen and pelvis of 04/08/2023. FINDINGS: LUNGS AND PLEURAL SPACES: A thin crescent of lucency has developed at the right lung base, paralleling the right hemidiaphragm , and most likely due to developing pneumoperitoneum, with a basilar pneumothorax felt less likely. There is no evidence for an apical pneumothorax. No acute pulmonary infiltrates or pleural effusion. HEART: Unremarkable. Cardiac silhouette not enlarged. Normal pulmonary vasculature. MEDIASTINUM: Central airways and mediastinal contour are unremarkable. BONES/JOINTS: No acute osseous abnormality. SOFT TISSUES: Unremarkable. TUBES, LINES AND DEVICES: Right jugular venous catheter has been repositioned, and its tip is now projected over the mid SVC, in satisfactory position. NG tube has been inserted and extends into the stomach; the tip of the tube and sidehole of the tube are projected within the proximal gastric body. RAD/Chest 1 View (Portable) IMPRESSION: Satisfactory positioning of central venous catheter and NG tube. Findings suspicious for developing pneumoperitoneum. If this patient has not undergone recent intra-abdominal surgery, the free air is most likely be due to bowel perforation; findings of small bowel obstruction were noted on the CT of one day ago. Nonstandard communication protocol initiated. Electronically Signed: Mil Kennedy MD at 1:20 EDT ,
[2023-04-09] MEDS: Norepinephrine 16 mg/250 mL 0.9% NS 3.8 MG CONT INF (01:00)
[2023-04-09] MEDS: Potassium Chloride 10mEq/100mL 10 MEQ/100 ML IV.SOLN. 200 MEQ IV BOLUS ×3 (01:04→02:10)
[2023-04-09 01:20] LABS: Absolute Lymphocyte Count 0.94 X10^3/uL (0.83-4.51); Absolute Neutrophil Count 9.9 X10^3/uL (2.0-7.7); Basophil# 0.06 X10^3/uL; Basophil% 0.5 % (0-1); Eosinophil# 0.09 X10^3/uL; Eosinophils% 0.7 % (0-5); Hematocrit 46.7 % (37-47); Hemoglobin 15.3 g/dL (12.0-15.0); Lymphocyte # 0.94 X10^3/ul (0.83-4.51); Lymphocyte % 7.6 % (19-41); Mean Corp Hgb Conc 32.8 g/dL (32-36); Mean Corpuscular Hgb 31.7 pg (27.0-32.0); Mean Corpuscular Volume 96.7 fL (81-99); Mean Platelet Vol. 11.7 fl (6.2-12.0); Monocyte# 1.27 X10^3/uL; Monocyte% 10.3 % (0-10); NRBC Flagged by Analyzer 0 % (0-5); Neutrophil # 9.87 X10^3/uL (2.7-7.7); Neutrophil % 80.4 % (47-70); POSITIVE MORPHOLOGY YES; Platelet Count 292 K/mm3 (150-450); RBC Distribution Width CV 13.7 % (11.6-14.6); RBC Distribution Width SD 49.2 fl (35.1-43.9); Red Blood Count 4.83 M/mm3 (4.2-5.4); White Blood Count 12.3 K/mm3 (4.4-11.0)
[2023-04-09 01:22] LABS: Differential Indicated SCAN CRITERIA MET
[2023-04-09 01:54] LABS: Differential Comment SCANNED
[2023-04-09 01:58] LABS: Anion Gap 8 (5-15); BUN 26 mg/dL (7-18); BUN/Creat Ratio 15.8 RATIO (10-20); Calcium,Total 8.5 mg/dL (8.5-10.1); Chloride 114 mmol/L (98-107); Creatinine, Serum 1.65 mg/dL (0.55-1.02); EST Glomerular Filtration Rate 32 mL/min (>60); Est Glom Filt Rate - Afr Amer 39 mL/min (>60); Estimated Creatinine Clearance 22.67 ml/min; Glucose 159 mg/dL (74-106); Potassium 4.1 mmol/L (3.5-5.1); Sodium Level 141 mmol/L (136-145); Troponin-I HS 118 pg/mL (3.0-54.0)
[2023-04-09] MEDS: 0.9% Normal Saline 1,000 ML 100 ML IV (02:16)
[2023-04-09 03:22] LABS: Procalcitonin > 50.00 ng/mL (0.00-0.09)
[2023-04-09 03:28] LABS: Absolute Lymphocyte Count 1.22 X10^3/uL (0.83-4.51); Absolute Neutrophil Count 9.7 X10^3/uL (2.0-7.7); Basophil# 0.07 X10^3/uL; Basophil% 0.6 % (0-1); Hematocrit 46.2 % (37-47); Hemoglobin 15.5 g/dL (12.0-15.0); Lymphocyte # 1.22 X10^3/ul (0.83-4.51); Lymphocyte % 9.9 % (19-41); Mean Corp Hgb Conc 33.5 g/dL (32-36); Mean Corpuscular Hgb 32.2 pg (27.0-32.0); Mean Platelet Vol. 11.4 fl (6.2-12.0); Monocyte# 1.36 X10^3/uL; NRBC Flagged by Analyzer 0 % (0-5); Neutrophil # 9.67 X10^3/uL (2.7-7.7); Neutrophil % 78.3 % (47-70); POSITIVE MORPHOLOGY YES; Platelet Count 270 K/mm3 (150-450); RBC Distribution Width CV 13.7 % (11.6-14.6); Red Blood Count 4.81 M/mm3 (4.2-5.4); White Blood Count 12.3 K/mm3 (4.4-11.0)
[2023-04-09 03:29] LABS: Differential Indicated SCAN CRITERIA MET
[2023-04-09 03:54] LABS: Differential Comment SCANNED; Reactive Lymphocyte RARE
[2023-04-09 04:12] LABS: Anion Gap 7 (5-15); BUN 28 mg/dL (7-18); BUN/Creat Ratio 18.4 RATIO (10-20); Calcium,Total 8.3 mg/dL (8.5-10.1); Chloride 115 mmol/L (98-107); Creatinine, Serum 1.52 mg/dL (0.55-1.02); EST Glomerular Filtration Rate 36 mL/min (>60); Est Glom Filt Rate - Afr Amer 43 mL/min (>60); Estimated Creatinine Clearance 24.61 ml/min; Glucose 138 mg/dL (74-106); Potassium 4.4 mmol/L (3.5-5.1); Sodium Level 142 mmol/L (136-145)
[2023-04-09 04:13] LABS: Magnesium 1.6 mg/dL (1.6-2.6); Phosphorus 3.2 mg/dL (2.5-4.9)
[2023-04-09 04:34] LABS: Troponin-I HS 99 pg/mL (3.0-54.0)
[2023-04-09] MEDS: TITRATION PARAMETER CHANGE 1 EACH IV (04:41)
[2023-04-09] MEDS: Acetaminophen 650 MG Suppository RC (04:42)
[2023-04-09 05:02] LABS: Reflex Lactate? Y
--- NOTE | 2023-04-09 05:50 | PCM.RX.CS ---
Consult Labs Labs: Sodium 142 mmol/L (136-145) 04/09/23 03:20 Potassium 4.4 mmol/L (3.5-5.1) 04/09/23 03:20 Chloride 115 mmol/L (98-107) H 04/09/23 03:20 Carbon Dioxide 20.0 mmol/L (21.0-32.0) L 04/09/23 03:20 Anion Gap 7 (5-15) 04/09/23 03:20 BUN 28 mg/dL (7-18) H 04/09/23 03:20 Creatinine 1.52 mg/dL (0.55-1.02) H 04/09/23 03:20 Est GFR (MDRD) Af Amer 43 mL/min (>60) L 04/09/23 03:20 Est GFR (MDRD) Non-Af 36 mL/min (>60) L 04/09/23 03:20 BUN/Creatinine Ratio 18.4 RATIO (10-20) 04/09/23 03:20 Glucose 138 mg/dL (74-106) H 04/09/23 03:20 Estimated Creatinine Clearance Estimated Creatinine Clearance: 25.1 Goal Trough Goal Trough: 15-20 mcg/mL Pharmacy Plan for Drug Dosing Pharmacy Plan for Drug Dosing: Pharmacy Service will continue to monitor and adjust dosing as required. Date/Time Labs Ordered Labs to be done on [date and time ordered]: 04/10 @ 7497
[2023-04-09] MEDS: fentaNYL 100 MCG/2 ML Ampul 50 MCG IV ×5 (06:21→22:07)
[2023-04-09] MEDS: 0.9% Saline Lock 10 ML Syringe IV ×3 (06:22→12:58)
[2023-04-09 07:07] LABS: Lactic Acid 2.2 mmol/L (0.4-1.9)
--- NOTE | 2023-04-09 07:40 | PCM.PN.HOSP ---
Reason for Visit Reason for Visit: Abdominal pain Subjective Subjective Mrs. Garrison is a 72-year-old white female who presented to the emergency department [facility] on 04/08/2023 with a chief complaint of abdominal pain and a bulging in her right groin. Pain was rated at 5 out of 10 and was sharp in nature. She reported the pain radiated to her mid abdomen and into her low back. She had associated nausea and vomiting and had a syncopal episode at home prior to presentation. Upon presentation to the emergency department she was found to be afebrile with a temperature of 98, heart rate was 125, initial blood pressure was 72/48, respiratory rate was 16 and oxygen saturations were 93% on room air. CBC revealed a significant leukocytosis with a white count of 17.7, hemoglobin of 17.5 and her platelets were normal. Coags were unremarkable. Chemistry panel revealed normal sodium but a potassium of 2.4, serum bicarb of 16, BUN of 23 and a serum creatinine of 2.85. Baseline serum creatinine based on previous records looks to be between 0.8 and 1. Her blood glucose was 241. Serum lactate was 13.6 and she had hypercalcemia with a calcium of 11.0. Her initial troponin was 128 but she has trended down since that point time with subsequent troponins at 118 and 99. Her procalcitonin was greater than 50. Given her abdominal pain a CTA of her chest abdomen pelvis was performed and demonstrated dilated loops of small intestine with nondistended colon consistent with small bowel obstruction, right inguinal hernia containing a small bowel loop which is the location of transition point for the small bowel obstruction and strangulation or incarceration was suspected. Cultures were obtained she was placed on broad-spectrum antibiotics and general surgery was consulted in the emergency department. Given her clinical presentation and imaging she was taken emergently to the operating room where an exploratory laparotomy with resection of small bowel segment was performed. After surgery she was taken to the ICU for ongoing care. She remained hypotensive so she requires pressors at this time for blood pressure support. This morning she remains on pressors which have been uptitrated to 9 mics. Her white count and lactate have trended down. Patient is complaining of abdominal pain which is to be expected and thirst. She remains n.p.o. Clinically it appears that she looks much better than she did previously Objective Data Objective Data Vital Signs: Vital Signs Temp Pulse Resp BP Pulse Ox O2 Del Method O2 Flow Rate 100.8 F H 110 H 25 H 98/62 95 Room Air 2 04/09/23 07:00 04/09/23 07:00 04/09/23 07:00 04/09/23 07:00 04/09/23 07:00 04/09/23 07:00 04/09/23 04:00 Oxygen Flow Rate (L/min) 2 Oxygen Delivery Method Room Air Weight: 49 kg Body Mass Index (BMI) 18.4 Intake & Output: Intake and Output for Last 24 Hours 04/07/23 04/08/23 04/09/23 23:59 23:59 23:59 Intake Total 2100 / 2100 1796.98 / 1796.98 Output Total 125 / 125 200 / 200 Balance 1974 / 1974 1596.98 / 1596.98 Lab / Micro Data 04/09/23 03:20 04/09/23 03:20 Labs: Laboratory Results - last 24 hr 04/08/23 19:15: WBC 17.7 H, RBC 5.43 H, Hgb 17.5 H, Hct 53.1 H, MCV 97.8, MCH 32.2 H, MCHC 33.0, RDW Std Deviation 50.0 H, RDW Coeff of [place]oyda 13.8, Plt Count 349, MPV 11.7, Immature Gran % (Auto) 1.900 H, Neut % (Auto) 86.6 H, Lymph % (Auto) 4.2 L, [place] % (Auto) 6.5, Eos % (Auto) 0.6, Baso % (Auto) 0.2, Absolute Neuts (auto) 15.3 H, Absolute Lymphs (auto) 0.75 L, Nucleated RBC % 0, PT 14.5, INR 1.1, APTT 26.3, Sodium 139, Potassium 2.4 L*, Chloride 102, Carbon Dioxide 16.0 L, Anion Gap 21 H, BUN 23 H, Creatinine 2.85 H, Estim Creat Clear Calc 13.72, Est GFR (MDRD) Af Amer 21 L, Est GFR (MDRD) Non-Af 17 L, BUN/Creatinine Ratio 8.1 L, Glucose 241 H, Lactic Acid 13.6 H*, Calcium 11.0 H, Magnesium 2.4, Total Bilirubin 0.30, AST 21, ALT 18, Alkaline Phosphatase 104, Troponin I High Sens 128 H*, Total Protein 7.2, Albumin 3.4, Globulin 3.8, Albumin/Globulin Ratio 0.9, Lipase 25, TSH 3.59, Free T4 1.12, Ethyl Alcohol < 3.0 04/08/23 19:34: POC Glucose 187 H 04/08/23 19:40: Urine Color Yellow, Urine Clarity Clear, Urine pH 7.0, Ur Specific [place] 1.005, Urine Protein 100 H, Urine Glucose (UA) 50 H, Urine Ketones 5 H, Urine Occult Blood 50 H, Urine Nitrite Negative, Urine Bilirubin Negative, Urine Urobilinogen Normal, Ur Leukocyte Esterase Negative, Urine RBC 0 SEEN, Urine WBC 0 SEEN, Ur Squamous Epith Cells 0 SEEN, Urine Bacteria 0 SEEN, Urine Mucus 0 SEEN 04/09/23 00:50: WBC 12.3 H, RBC 4.83, Hgb 15.3 H, Hct 46.7, MCV 96.7, MCH 31.7, MCHC 32.8, RDW Std Deviation 49.2 H, RDW Coeff of [place] 13.7, Plt Count 292, MPV 11.7, Immature Gran % (Auto) 0.500, Neut % (Auto) 80.4 H, Lymph % (Auto) 7.6 L, [place] % (Auto) 10.3 H, Eos % (Auto) 0.7, Baso % (Auto) 0.5, Absolute Neuts (auto) 9.9 H, Absolute Lymphs (auto) 0.94, Nucleated RBC % 0, Differential Comment SCANNED, Sodium 141, Potassium 4.1, Chloride 114 H, Carbon Dioxide 19.0 L, Anion Gap 8, BUN 26 H, Creatinine 1.65 H, Estim Creat Clear Calc 22.67, Est GFR (MDRD) Af Amer 39 L, Est GFR (MDRD) Non-Af 32 L, BUN/Creatinine Ratio 15.8, Glucose 159 H, Lactic Acid 3.0 H*, Calcium 8.5, Troponin I High Sens 118 H, Procalcitonin > 50.00 H 04/09/23 03:20: WBC 12.3 H, RBC 4.81, Hgb 15.5 H, Hct 46.2, MCV 96.0, MCH 32.2 H, MCHC 33.5, RDW Std Deviation 49.0 H, RDW Coeff of [place] 13.7, Plt Count 270, MPV 11.4, Immature Gran % (Auto) 0.200, Neut % (Auto) 78.3 H, Lymph % (Auto) 9.9 L, [place] % (Auto) 11.0 H, Eos % (Auto) 0.0, Baso % (Auto) 0.6, Absolute Neuts (auto) 9.7 H, Absolute Lymphs (auto) 1.22, Nucleated RBC % 0, Differential Comment SCANNED, Reactive Lymphocytes RARE, Sodium 142, Potassium 4.4, Chloride 115 H, Carbon Dioxide 20.0 L, Anion Gap 7, BUN 28 H, Creatinine 1.52 H, Estim Creat Clear Calc 24.61, Est GFR (MDRD) Af Amer 43 L, Est GFR (MDRD) Non-Af 36 L, BUN/Creatinine Ratio 18.4, Glucose 138 H, Calcium 8.3 L, Phosphorus 3.2, Magnesium 1.6, Troponin I High Sens 99 H 04/09/23 05:45: Lactic Acid 2.2 H* Radiography Diagnostic Testing: Radiology Impression Chest/Abdomen/Pelvis CTA 04/08/23 19:15 IMPRESSION: No demonstrated pulmonary embolism or arterial dissection. There are no acute findings. STUDY: CTA Chest and CTA Abdomen and Pelvis W/ Contrast Injection (and W/O Contrast Images if performed) 04/08/2023 7:54 PM REASON FOR EXAM: Female, 72 years old. pain hypotension, abdominal pain Individualized dose optimization techniques were used for this CT. COMPARISON: None. TECHNIQUE: CTA Chest and CTA Abdomen and Pelvis W/ Contrast Injection (and W/O Contrast Images if performed) IV 100mL [id number] FINDINGS: There are atherosclerotic calcifications of visualized coronary arteries. The visualized portions of the heart are within normal limits. Normal liver. Normal gallbladder and extrahepatic biliary system. Normal spleen. Normal pancreas. Normal bilateral adrenal glands. Mild ascites. There are hypodensities in the right kidney. These are consistent for cysts. No follow up required. No acute findings of the left kidney. There is a large hiatal hernia composed mostly of the fundus of the stomach. There are dilated loops of the small intestine with a non-distended colon consistent with a small bowel obstruction. There is a right inguinal hernia containing a loop of small bowel. This is the location of the transition point for the small bowel obstruction. Strangulation or incarceration is not excluded. Exclusion is based on physical examination. Physical examination may be warranted in individuals with hernias. Surveillance may be warranted in individuals with hernias. Stool throughout the colon. There is non-visualization of the appendix. Focal wall thickening of the antrum of stomach. This can suggest a gastritis. There are calcifications of the abdominal aorta. This is consistent for atherosclerotic disease. There is NO abdominal aortic aneurysm. Vascular workup can be obtained based on clinical correlation. Normal inferior vena cava. Subcentimeter mesenteric lymph nodes. Normal urinary bladder. There is an umbilical hernia containing fat. Normal osseous structures. Celiac and superior mesenteric arteries: There is moderate diffuse narrowing. Inferior mesenteric artery: No demonstrated narrowing. Right renal artery(arteries): No demonstrated narrowing. Left renal artery(arteries): There is mild diffuse narrowing. Right common iliac artery: There is mild diffuse narrowing. Right external iliac artery: There is mild diffuse narrowing. Right internal iliac artery: There is mild diffuse narrowing. Left common iliac artery: There is mild diffuse narrowing. Left external iliac artery: There is mild diffuse narrowing. Left internal iliac artery: There is mild diffuse narrowing. IMPRESSION: (NOT LISTED IN ORDER OF SIGNIFICANCE) There are dilated loops of the small intestine with a non-distended colon consistent with a small bowel obstruction. There is a right inguinal hernia containing a loop of small bowel. This is the location of the transition point for the small bowel obstruction. Strangulation or incarceration is not excluded. Exclusion is based on physical examination Mild ascites. Gastritis. Other findings as above. Electronically Signed: Richard Saab MD at 20:01 EDT , Chest X-Ray 04/08/23 21:53 IMPRESSION: Right jugular venous catheter in place, with the catheter tip projected over the right atrium. No pneumothorax. Electronically Signed: Mil Kennedy MD at 23:00 EDT , Chest X-Ray 04/09/23 00:29 IMPRESSION: Satisfactory positioning of central venous catheter and NG tube. Findings suspicious for developing pneumoperitoneum. If this patient has not undergone recent intra-abdominal surgery, the free air is most likely be due to bowel perforation; findings of small bowel obstruction were noted on the CT of one day ago. Nonstandard communication protocol initiated. Electronically Signed: Mil Kennedy MD at 1:20 EDT , ADDENDUM: 04/09/23 013 IMPRESSION: Satisfactory positioning of central venous catheter and NG tube. Findings suspicious for developing pneumoperitoneum. If this patient has not undergone recent intra-abdominal surgery, the free air is most likely be due to bowel perforation; findings of small bowel obstruction were noted on the CT of one day ago. Nonstandard communication protocol initiated. N.B. : The above Results were Read Back by Mil Kennedy MD to Oanh Lozano RN, and understanding confirmed on 04/09/2023 01:25:47 (ET). Electronically Signed: Mil Kennedy MD at 1:20 EDT , ADDENDUM: 04/09/23133 IMPRESSION: undefined ADDENDUM: 04/09/23136 IMPRESSION: undefined Physical Exam Const alert, oriented x3 and no apparent distress; Negative for average body habitus or healthy appearing Constitutional Narrative: Thin, elderly, white female, lying in bed, appears toxic, appears slightly uncomfortable HEENT head/scalp atraumatic HEENT Narrative: Edentulous, Mallampati 1, no thrush Head and Scalp: normocephalic Resp normal respiratory effort, no retractions, no use of accessory muscles and clear to auscultation bilaterally Resp Narrative: Diminished diffusely but no adventitious sounds noted Auscultation: Negative for rales, rhonchi or wheezes Cardio regular rate, regular rhythm, S1 normal heart sound, S2 normal heart sound, no murmurs, no rub, no gallops and no clicks GI GI Narrative: Abdomen soft, diffuse tenderness, incision is clean dry and intact, bowel sounds are hypoactive, no distention Extremity no clubbing, cyanosis or edema Extremity Narrative: Decreased lean muscle mass, no clubbing or cyanosis Neuro oriented x3, CN's II-XII intact bilaterally, moves all extremities and no focal motor deficits Speech: speech normal Psych Psych Narrative: Appears ill with flat affect appropriate for current situation Assessment & Plan Assessment/Plan (1) Right inguinal hernia: (2) Septic shock: (3) Elevated troponin: (4) Lactic acidosis: (5) Leukocytosis: (6) DIONICIO (acute kidney injury): PLAN: Plan Septic shock secondary to incarcerated small bowel secondary to right inguinal hernia -Postop day 1 small bowel resection -Requiring Levophed for blood pressure support -Adequate fluid resuscitation was given -Continue IV fluids at 100 cc/h for now -Continue broad-spectrum antibiotics -Cultures are pending -Lactate is trending down and leukocytosis is improving -Continue n.p.o. -Continue NG tube -Await return of bowel function -General surgery is following -CCM/pulm following Lactic acidosis -Markedly elevated on presentation likely due to strangulated bowel -Trending down nicely with IV fluid resuscitation and pressors for blood pressure support DIONICIO -Baseline serum creatinine appears to be between 0.8 and 1 -Serum creatinine on presentation was 2.85 -Serum creatinine this morning is 1.52 and appears to be steadily improving -Avoid nephrotoxins -Continue IV fluids -Maintain MAP greater than 65 Troponin elevation -Peak troponin was 128 and has trended down since then -Likely related to type II NSTEMI related to demand ischemia from septic shock -We will check echocardiogram to assess wall motion Leukocytosis -Trending down -Cultures pending -Continue empiric antibiotics COPD -Previous PFTs done on 03/06/2015 showed mild large airway obstruction with ventilatory defect and no response to bronchodilators -History of tobacco abuse -As needed nebulizers Osteoporosis -Restart Boniva at discharge Hypothyroidism -Restart levothyroxine when bowel function returns or dose IV weekly GERD -IV Protonix 40 mg daily Hyperlipidemia -Restart rosuvastatin once p.o. intake is permitted DVT prophylaxis -SCDs for now -We will leave chemoprophylaxis to primary service Charges/Coding Visit Charges Inpatient E&M: 59083 Subs Hosp L2
--- NOTE | 2023-04-09 07:56 | PN.SURG_ITS ---
Subjective Subjective Patient feels comfortable this morning. Objective Data Objective Data Vital Signs: Vital Signs Temp Pulse Resp BP Pulse Ox O2 Del Method O2 Flow Rate 100.8 F H 110 H 25 H 98/62 95 Room Air 2 04/09/23 07:00 04/09/23 07:00 04/09/23 07:00 04/09/23 07:00 04/09/23 07:00 04/09/23 07:00 04/09/23 04:00 Oxygen Flow Rate (L/min) 2 Oxygen Delivery Method Room Air Weight: 108 lb 0.424 oz Body Mass Index (BMI) 18.4 Intake & Output: Intake and Output for Last 24 Hours 04/07/23 04/08/23 04/09/23 23:59 23:59 23:59 Intake Total 2100 / 2099 1796.98 / 1796.98 Output Total 125 / 125 200 / 200 Balance 1974 / 1974 1596.98 / 1596.98 Lab / Micro Data 04/09/23 03:20 04/09/23 03:20 Labs: Laboratory Results - last 24 hr 04/08/23 19:15: WBC 17.7 H, RBC 5.43 H, Hgb 17.5 H, Hct 53.1 H, MCV 97.8, MCH 32.2 H, MCHC 33.0, RDW Std Deviation 50.0 H, RDW Coeff of Loyda 13.8, Plt Count 349, MPV 11.7, Immature Gran % (Auto) 1.900 H, Neut % (Auto) 86.6 H, Lymph % (Auto) 4.2 L, Treasure % (Auto) 6.5, Eos % (Auto) 0.6, Baso % (Auto) 0.2, Absolute Neuts (auto) 15.3 H, Absolute Lymphs (auto) 0.75 L, Nucleated RBC % 0, PT 14.5, INR 1.1, APTT 26.3, Sodium 139, Potassium 2.4 L*, Chloride 102, Carbon Dioxide 16.0 L, Anion Gap 21 H, BUN 23 H, Creatinine 2.85 H, Estim Creat Clear Calc 13.72, Est GFR (MDRD) Af Amer 21 L, Est GFR (MDRD) Non-Af 17 L, BUN/Creatinine Ratio 8.1 L, Glucose 241 H, Lactic Acid 13.6 H*, Calcium 11.0 H, Magnesium 2.4, Total Bilirubin 0.30, AST 21, ALT 18, Alkaline Phosphatase 104, Troponin I High Sens 128 H*, Total Protein 7.2, Albumin 3.4, Globulin 3.8, Albumin/Globulin Ratio 0.9, Lipase 25, TSH 3.59, Free T4 1.12, Ethyl Alcohol < 3.0 04/08/23 19:34: POC Glucose 187 H 04/08/23 19:40: Urine Color Yellow, Urine Clarity Clear, Urine pH 7.0, Ur Specific [place] 1.005, Urine Protein 100 H, Urine Glucose (UA) 50 H, Urine Ketones 5 H, Urine Occult Blood 50 H, Urine Nitrite Negative, Urine Bilirubin Negative, Urine Urobilinogen Normal, Ur Leukocyte Esterase Negative, Urine RBC 0 SEEN, Urine WBC 0 SEEN, Ur Squamous Epith Cells 0 SEEN, Urine Bacteria 0 SEEN, Urine Mucus 0 SEEN 04/09/23 00:50: WBC 12.3 H, RBC 4.83, Hgb 15.3 H, Hct 46.7, MCV 96.7, MCH 31.7, MCHC 32.8, RDW Std Deviation 49.2 H, RDW Coeff of Loyda 13.7, Plt Count 292, MPV 11.7, Immature Gran % (Auto) 0.500, Neut % (Auto) 80.4 H, Lymph % (Auto) 7.6 L, Treasure % (Auto) 10.3 H, Eos % (Auto) 0.7, Baso % (Auto) 0.5, Absolute Neuts (auto) 9.9 H, Absolute Lymphs (auto) 0.94, Nucleated RBC % 0, Differential Comment SCANNED, Sodium 141, Potassium 4.1, Chloride 114 H, Carbon Dioxide 19.0 L, Anion Gap 8, BUN 26 H, Creatinine 1.65 H, Estim Creat Clear Calc 22.67, Est GFR (MDRD) Af Amer 39 L, Est GFR (MDRD) Non-Af 32 L, BUN/Creatinine Ratio 15.8, Glucose 159 H, Lactic Acid 3.0 H*, Calcium 8.5, Troponin I High Sens 118 H, Procalcitonin > 50.00 H 04/09/23 03:20: WBC 12.3 H, RBC 4.81, Hgb 15.5 H, Hct 46.2, MCV 96.0, MCH 32.2 H , MCHC 33.5, RDW Std Deviation 49.0 H, RDW Coeff of Loyda 13.7, Plt Count 270, MPV 11.4, Immature Gran % (Auto) 0.200, Neut % (Auto) 78.3 H, Lymph % (Auto) 9.9 L, Treasure % (Auto) 11.0 H, Eos % (Auto) 0.0, Baso % (Auto) 0.6, Absolute Neuts (auto) 9.7 H, Absolute Lymphs (auto) 1.22, Nucleated RBC % 0, Differential Comment S CANNED, Reactive Lymphocytes RARE, Sodium 142, Potassium 4.4, Chloride 115 H, Carbon Dioxide 20.0 L, Anion Gap 7, BUN 28 H, Creatinine 1.52 H, Estim Creat Clear Calc 24.61, Est GFR (MDRD) Af Amer 43 L, Est GFR (MDRD) Non-Af 36 L, BUN/Creatinine Ratio 18.4, Glucose 138 H, Calcium 8.3 L, Phosphorus 3.2, Magnesium 1.6, Troponin I High Sens 99 H 04/09/23 05:45: Lactic Acid 2.2 H* Radiography Diagnostic Testing: Radiology Impression Chest/Abdomen/Pelvis CTA 04/08/23 19:15 IMPRESSION: No demonstrated pulmonary embolism or arterial dissection. There are no acute findings. STUDY: CTA Chest and CTA Abdomen and Pelvis W/ Contrast Injection (and W/O Contrast Images if performed) 04/08/2023 7:54 PM REASON FOR EXAM: Female, 72 years old. pain hypotension, abdominal pain Individualized dose optimization techniques were used for this CT. COMPARISON: None. TECHNIQUE: CTA Chest and CTA Abdomen and Pelvis W/ Contrast Injection (and W/O Contrast Images if performed) IV 100mL [id number] FINDINGS: There are atherosclerotic calcifications of visualized coronary arteries. The visualized portions of the heart are within normal limits. Normal liver. Normal gallbladder and extrahepatic biliary system. Normal spleen. Normal pancreas. Normal bilateral adrenal glands. Mild ascites. There are hypodensities in the right kidney. These are consistent for cysts. No follow up required. No acute findings of the left kidney. There is a large hiatal hernia composed mostly of the fundus of the stomach. There are dilated loops of the small intestine with a non-distended colon consistent with a small bowel obstruction. There is a right inguinal hernia containing a loop of small bowel. This is the location of the transition point for the small bowel obstruction. Strangulation or incarceration is not excluded. Exclusion is based on physical examination. Physical examination may be warranted in individuals with hernias. Surveillance may be warranted in individuals with hernias. Stool throughout the colon. There is non-visualization of the appendix. Focal wall thickening of the antrum of stomach. This can suggest a gastritis. There are calcifications of the abdominal aorta. This is consistent for atherosclerotic disease. There is NO abdominal aortic aneurysm. Vascular workup can be obtained based on clinical correlation. Normal inferior vena cava. Subcentimeter mesenteric lymph nodes. Normal urinary bladder. There is an umbilical hernia containing fat. Normal osseous structures. Celiac and superior mesenteric arteries: There is moderate diffuse narrowing. Inferior mesenteric artery: No demonstrated narrowing. Right renal artery(arteries): No demonstrated narrowing. Left renal artery(arteries): There is mild diffuse narrowing. Right common iliac artery: There is mild diffuse narrowing. Right external iliac artery: There is mild diffuse narrowing. Right internal iliac artery: There is mild diffuse narrowing. Left common iliac artery: There is mild diffuse narrowing. Left external iliac artery: There is mild diffuse narrowing. Left internal iliac artery: There is mild diffuse narrowing. IMPRESSION: (NOT LISTED IN ORDER OF SIGNIFICANCE) There are dilated loops of the small intestine with a non-distended colon consistent with a small bowel obstruction. There is a right inguinal hernia containing a loop of small bowel. This is the location of the transition point for the small bowel obstruction. Strangulation or incarceration is not excluded. Exclusion is based on physical examination Mild ascites. Gastritis. Other findings as above. Electronically Signed: Richard Saab MD at 20:01 EDT , Chest X-Ray 04/08/23 21:53 IMPRESSION: Right jugular venous catheter in place, with the catheter tip projected over the right atrium. No pneumothorax. Electronically Signed: Mil Kennedy MD at 23:00 EDT , Chest X-Ray 04/09/23 00:29 IMPRESSION: Satisfactory positioning of central venous catheter and NG tube. Findings suspicious for developing pneumoperitoneum. If this patient has not undergone recent intra-abdominal surgery, the free air is most likely be due to bowel perforation; findings of small bowel obstruction were noted on the CT of one day ago. Nonstandard communication protocol initiated. Electronically Signed: Mil Kennedy MD at 1:20 EDT , ADDENDUM: 04/09/23 013 IMPRESSION: Satisfactory positioning of central venous catheter and NG tube. Findings suspicious for developing pneumoperitoneum. If this patient has not undergone recent intra-abdominal surgery, the free air is most likely be due to bowel perforation; findings of small bowel obstruction were noted on the CT of one day ago. Nonstandard communication protocol initiated. N.B. : The above Results were Read Back by Mil Kennedy MD to Oanh Lozano RN, and understanding confirmed on 04/09/2023 01:25:47 (ET). Electronically Signed: Mil Kennedy MD at 1:20 EDT , ADDENDUM: 04/09/23133 IMPRESSION: undefined ADDENDUM: 04/09/23136 IMPRESSION: undefined Physical Exam Const oriented x3 and no apparent distress Resp normal respiratory effort Cardio Rate: tachycardic GI soft to palpation Palpation: tender Assessment & Plan Assessment/Plan (1) Right inguinal hernia: (2) Severe sepsis: PLAN: Plan The patient is still requiring pressor support. Continue antibiotics. Continue NG suction. Patient will receive a bolus this morning. Patient has a Mcpherson in for urine output monitoring. Domingo Johnson MD Pager: [facility] [address] [place] [address] [address] [place] [address] Office:
--- NOTE | 2023-04-09 08:12 | ECHOD_ITS ---
Reason For Study: CAD/ASHD Procedure This was a 2D Doppler, Color Flow transthoracic echocardiogram. Exam performed portable in ICU/CCU. Left Ventricle Normal LV size. The estimated ejection fraction is 65 %. No evidence for diastolic dysfunction. No regional wall motion abnormalities noted. Right Ventricle Normal RV size. Normal systolic function. Atria Normal left atrium. Normal right atrium. No doppler evidence for ASD. Mitral Valve There is no mitral valve stenosis. No mitral valve insufficiency. Tricuspid Valve There is no tricuspid stenosis. Unable to estimate RV systolic pressure due to inadequate jet, pulmonary artery pressure probably normal. Aortic Valve Trisinus/trileaflet aortic valve. There is no aortic stenosis. No aortic valve insufficiency. Pulmonic Valve There is no pulmonic valvular stenosis. Trivial pulmonic valve insufficiency. Great Vessels Normal aortic root. Pericardium/Pleural No pericardial effusion. MMode/2D Measurements & Calculations LVIDd: 3.3 cm IVSd: 0.97 cm LAV(MOD-bp): 20.3 ml LVIDs: 2.4 cm LVPWd: 1.2 cm LAV(MOD-bp) Indexed: 13.5 ml/m2 FS: 25.3 % LAV(MOD-sp2): 18.0 ml LAV(MOD-sp4): 18.6 ml SV(MOD-sp4): 14.1 ml SV(sp4-el): 15.8 ml LVAd ap4: 13.0 cm2 LVLd ap4: 5.4 cm EDV(MOD-sp4): 25.2 ml EDV(sp4-el): 26.6 ml LVAs ap4: 7.6 cm2 LVLs ap4: 4.5 cm ESV(MOD-sp4): 11.1 ml ESV(sp4-el): 10.9 ml EF(MOD-sp4): 56.0 % EF(sp4-el): 59.2 % LA A4 area: 8.9 cm2 LA dimension(2D): 2.4 cm RA A4 area: 6.1 cm2 Time Measurements MV dec time: 0.13 sec Doppler Measurements & Calculations MV E max kt: 43.9 cm/sec Lat Peak E' Kt: 13.3 cm/sec Med Peak E' Kt: 10.2 cm/sec MV A max kt: 78.9 cm/sec E/E' lat: 3.3 E/E' med: 4.3 MV E/A: 0.56 MV V2 max: 79.0 cm/sec MV dec slope: 351.6 cm/sec2 Ao V2 max: 120.9 cm/sec MV max P.5 mmHg Ao max P.9 mmHg MV V2 mean: 48.8 cm/sec Ao V2 mean: 80.3 cm/sec MV mean P.1 mmHg Ao mean P.0 mmHg MV V2 VTI: 11.6 cm Ao V2 VTI: 17.7 cm AV (velocity ratio): 0.70 LV V1 max: 102.4 cm/sec PA V2 max: 62.1 cm/sec LV V1 max P.2 mmHg PA V2 mean: 44.0 cm/sec LV V1 mean P.2 mmHg LV V1 mean: 67.9 cm/sec LV V1 VTI: 12.4 cm ECHO/Echo Complete Interpretation Summary The estimated ejection fraction is 65 %. No evidence for diastolic dysfunction. Ordering Physician: Payal Tobias Referring Physician: ABBI DALY Performed By: Tasha Foster RCS
--- NOTE | 2023-04-09 08:40 | EX.PCM.CONCC ---
Assessment & Plan Assessment/Plan (1) S/P small bowel resection: PLAN: The patient has undergone a successful emergent small bowel resection by Dr Johnson due to necrotic bowel from an incarcerated right inguinal hernia. She has had primary anastomosis, had no known spillage of contents. She will continue her recovery in the ICU until she can wean off pressors. Related issues issues include the items below. - ICU team is pleased to assist with critical care management as she recovers. Thank you for the consult. (2) Septic shock: PLAN: Secondary to incarcerated right inguinal hernia, status post small bowel resection. Patient is stabilizing in the ICU with normotension on pressors, IV fluids at 125 cc/h Ringer's lactate, with bolus. Urine output is suboptimal and she will receive a bolus this morning. - Continue Vanco, cefepime, Flagyl for now. - Monitor culture results, discontinue vancomycin when possible - Pharmacy to monitor Vanco troughs Patient meets septic shock criteria due to heart rate greater than 120, fever, elevated white count greater than 12,000, and bowel source with necrotic bowel. (3) Right inguinal hernia: PLAN: Repaired. Managed by Dr Johnson (4) Elevated troponin: PLAN: Likely secondary to stress of surgery, hypotension and relative intravascular depletion. - Monitor serial troponins - Monitor EKGs - Patient is with no complaint of chest pain or pressure, no dyspnea and no pulmonary edema. She is on room air. - Continue bronchopulmonary hygiene incentive spirometry. Her chest x-ray has small amount of atelectasis. Right IJ is well-placed. (5) DIONICIO (acute kidney injury): PLAN: Related to shock/hypoperfusion. ATN. - Maintain adequate CVP, hydrate, monitor urine output and daily weights, - Fluid bolus and increased IV fluid rate until CVP is at 8-12. (6) Leukocytosis: PLAN: Secondary to sepsis. Monitor. - (7) Lactic acidosis: PLAN: Monitor every 4 to 6 hours until normalized. PLAN: Plan Other stable problems that may affect current recovery: Hyperlipidemia, hypothyroidism, GERD. - Resume pantoprazole - Routine ICU mobilization - Routine DVT prophylaxis when approved by surgery - Continue thyroid medication 25 mcg IV daily until the patient can continue her usual 100 mcg p.o. daily - Hold lipid medications until she can take p.o. - SCDs until mobilized and able to take anticoagulation Critical care time spent with patient at bedside, review of documentation, lab results, radiology and other test results, discussion with colleagues and ancillary staff, clinical management of patient, and updating family if applicable, was 45 minutes. This time does not include any procedures, if performed. [place] [address]. HPI Consult Data Date of Consult: 04/09/23 HPI Narrative Reason for Consultation: Septic shock p strangulated RIH, necrotic small bowel, resection HPI Narrative: TAYLOR MARSH, is a 72 F who presents with a strangulated right inguinal hernia, necrotic small bowel and sepsis. She underwent emergency surgery last night by Dr Johnson with resection of a small amount of small bowel, reanastomosis, repair of the inguinal hernia, extubated after surgery and transferred to ICU for ongoing care of sepsis. She is on cefepime, Flagyl, vancomycin, and norepinephrine drip currently at 9 mics per minute with MAP greater than 65. Fluids to Ringer's lactate at 100. Urine output is 200 cc over 7 hours. She complains of feeling dry, pain control is adequate. Denies fever, cough, sweats, chills, shortness of breath, chest pain, leg edema. She was previously independent, lives with her at her own home and ambulatory. Denies past cardiac and pulmonary disease. She has hypothyroidism, GERD on PPI, hyperlipidemia. She is allergic to penicillin. History was limited because of pain medication. [facility] Medical History Rheumatoid arthritis Skin cancer Home Medications Ibandronate Sodium [Boniva] 150 mg PO Q30D 10/19/16 [History Last Taken Unknown] Omeprazole [Prilosec] 40 mg PO DAILY 10/19/16 [History Last Taken Unknown] acetaminophen 500 mg tablet 500 mg PO QHS 10/19/16 [History Last Taken Unknown] aspirin 81 mg chewable tablet 81 mg PO DAILY@0800 10/19/16 [History Last Taken Unknown] benzonatate 100 mg capsule 100 mg PO 4X/DAY PRN PRN Cough ##20 10/19/16 [Rx Last Taken Unknown] calcium carbonate 600 mg calcium (1,500 mg) tablet 600 mg PO DAILY 10/19/16 [History Last Taken Unknown] cholecalciferol (vitamin D3) 125 mcg (5,000 unit) capsule 5,000 unit PO DAILY 10/19/16 [History Last Taken Unknown] levothyroxine 100 mcg tablet 100 mcg PO DAILY 10/19/16 [History Last Taken Unknown] rosuvastatin 10 mg tablet 10 mg PO DAILY 10/19/16 [History Last Taken Unknown] Allergy/AdvReac Type Severity Reaction Status Date / Time Penicillins Allergy Unknown Verified 04/08/23 19:05 Family History Other Colon cancer Heart disease Rheumatoid arthritis Surgical History (Updated 04/09/23 @ 08:[address] Jatinder Meza MD) H/O wrist surgery History of ankle surgery S/P small bowel resection Social History Smoking Status: Former smoker ROS ROS Narrative 12 system review negative except as above. Limited due to narcotic pain medication. Physical Exam Narrative Well-developed slender, BMI 18, mild abdominal discomfort but sleeping comfortably when first encountered. HEENT exam is normal except for dry mucous membranes. Thyroid is not enlarged. Neck is supple with no JVD thyromegaly or mass. A new triple-lumen right IJ is in place infusing well. Chest is clear bilaterally with no wheezes rales or rhonchi. Patient coughs on command but has no spontaneous cough or sputum production. No consolidation. Heart tachycardic S1-S2 with no murmurs rubs or gallops. Abdomen has a fresh dressing in place, clean and dry. No drains. No bowel sounds. No organomegaly. Painful to gentle palpation as expected postop. Extremities have no clubbing cyanosis or edema, moderate changes of arthritis noted. Neurologic: Sedated but arousable, verbal, and oriented grossly nonfocal. Medical Records Data Attestation: I reviewed the patient's medical records Lab / Micro Data Attestation: I reviewed the patient's lab results. 04/09/23 03:20 04/09/23 03:20 Labs: Laboratory Results - last 24 hr 04/08/23 19:15: WBC 17.7 H, RBC 5.43 H, Hgb 17.5 H, Hct 53.1 H, MCV 97.8, MCH 32.2 H, MCHC 33.0, RDW Std Deviation 50.0 H, RDW Coeff of Loyda 13.8, Plt Count 349, MPV 11.7, Immature Gran % (Auto) 1.900 H, Neut % (Auto) 86.6 H, Lymph % (Auto) 4.2 L, [place] % (Auto) 6.5, Eos % (Auto) 0.6, Baso % (Auto) 0.2, Absolute Neuts (auto) 15.3 H, Absolute Lymphs (auto) 0.75 L, Nucleated RBC % 0, PT 14.5, INR 1.1, APTT 26.3, Sodium 139, Potassium 2.4 L*, Chloride 102, Carbon Dioxide 16.0 L, Anion Gap 21 H, BUN 23 H, Creatinine 2.85 H, Estim Creat Clear Calc 13.72, Est GFR (MDRD) Af Amer 21 L, Est GFR (MDRD) Non-Af 17 L, BUN/Creatinine Ratio 8.1 L, Glucose 241 H, Lactic Acid 13.6 H*, Calcium 11.0 H, Magnesium 2.4, Total Bilirubin 0.30, AST 21, ALT 18, Alkaline Phosphatase 104, Troponin I High Sens 128 H*, Total Protein 7.2, Albumin 3.4, Globulin 3.8, Albumin/Globulin Ratio 0.9, Lipase 25, TSH 3.59, Free T4 1.12, Ethyl Alcohol < 3.0 04/08/23 19:34: POC Glucose 187 H 04/08/23 19:40: Urine Color Yellow, Urine Clarity Clear, Urine pH 7.0, Ur Specific [place] 1.005, Urine Protein 100 H, Urine Glucose (UA) 50 H, Urine Ketones 5 H, Urine Occult Blood 50 H, Urine Nitrite Negative, Urine Bilirubin Negative, Urine Urobilinogen Normal, Ur Leukocyte Esterase Negative, Urine RBC 0 SEEN, Urine WBC 0 SEEN, Ur Squamous Epith Cells 0 SEEN, Urine Bacteria 0 SEEN, Urine Mucus 0 SEEN 04/09/23 00:50: WBC 12.3 H, RBC 4.83, Hgb 15.3 H, Hct 46.7, MCV 96.7, MCH 31.7, MCHC 32.8, RDW Std Deviation 49.2 H, RDW Coeff of Loyda 13.7, Plt Count 292, MPV 11.7, Immature Gran % (Auto) 0.500, Neut % (Auto) 80.4 H, Lymph % (Auto) 7.6 L, [place] % (Auto) 10.3 H, Eos % (Auto) 0.7, Baso % (Auto) 0.5, Absolute Neuts (auto) 9.9 H, Absolute Lymphs (auto) 0.94, Nucleated RBC % 0, Differential Comment SCANNED, Sodium 141, Potassium 4.1, Chloride 114 H, Carbon Dioxide 19.0 L, Anion Gap 8, BUN 26 H, Creatinine 1.65 H, Estim Creat Clear Calc 22.67, Est GFR (MDRD) Af Amer 39 L, Est GFR (MDRD) Non-Af 32 L, BUN/Creatinine Ratio 15.8, Glucose 159 H, Lactic Acid 3.0 H*, Calcium 8.5, Troponin I High Sens 118 H, Procalcitonin > 50.00 H 04/09/23 03:20: WBC 12.3 H, RBC 4.81, Hgb 15.5 H, Hct 46.2, MCV 96.0, MCH 32.2 H, MCHC 33.5, RDW Std Deviation 49.0 H, RDW Coeff of Loyda 13.7, Plt Count 270, MPV 11.4, Immature Gran % (Auto) 0.200, Neut % (Auto) 78.3 H, Lymph % (Auto) 9.9 L, [place] % (Auto) 11.0 H, Eos % (Auto) 0.0, Baso % (Auto) 0.6, Absolute Neuts (auto) 9.7 H, Absolute Lymphs (auto) 1.22, Nucleated RBC % 0, Differential Comment SCANNED, Reactive Lymphocytes RARE, Sodium 142, Potassium 4.4, Chloride 115 H, Carbon Dioxide 20.0 L, Anion Gap 7, BUN 28 H, Creatinine 1.52 H, Estim Creat Clear Calc 24.61, Est GFR (MDRD) Af Amer 43 L, Est GFR (MDRD) Non-Af 36 L, BUN/Creatinine Ratio 18.4, Glucose 138 H, Calcium 8.3 L, Phosphorus 3.2, Magnesium 1.6, Troponin I High Sens 99 H 04/09/23 05:45: Lactic Acid 2.2 H* XR CHEST, 1 VIEW CLINICAL INDICATION: Right IJ CVC pulled back 5cm TECHNIQUE: Frontal view of the chest. 12:31 AM. COMPARISON: Previous chest radiograph of 04/08/2023. CT chest abdomen and pelvis of 04/08/2023. FINDINGS: LUNGS AND PLEURAL SPACES: A thin crescent of lucency has developed at the right lung base, paralleling the right hemidiaphragm , and most likely due to developing pneumoperitoneum, with a basilar pneumothorax felt less likely. There is no evidence for an apical pneumothorax. No acute pulmonary infiltrates or pleural effusion. HEART: Unremarkable. Cardiac silhouette not enlarged. Normal pulmonary vasculature. MEDIASTINUM: Central airways and mediastinal contour are unremarkable. BONES/JOINTS: No acute osseous abnormality. SOFT TISSUES: Unremarkable. TUBES, LINES AND DEVICES: Right jugular venous catheter has been repositioned, and its tip is now projected over the mid SVC, in satisfactory position. NG tube has been inserted and extends into the stomach; the tip of the tube and sidehole of the tube are projected within the proximal gastric body. 04/09/23 0120 Radiology Impression Chest/Abdomen/Pelvis CTA 04/08/23 19:15 IMPRESSION: No demonstrated pulmonary embolism or arterial dissection. There are no acute findings. STUDY: CTA Chest and CTA Abdomen and Pelvis W/ Contrast Injection (and W/O Contrast Images if performed) 04/08/2023 7:54 PM REASON FOR EXAM: Female, 72 years old. pain hypotension, abdominal pain Individualized dose optimization techniques were used for this CT. COMPARISON: None. TECHNIQUE: CTA Chest and CTA Abdomen and Pelvis W/ Contrast Injection (and W/O Contrast Images if performed) IV 100mL [id number] FINDINGS: There are atherosclerotic calcifications of visualized coronary arteries. The visualized portions of the heart are within normal limits. Normal liver. Normal gallbladder and extrahepatic biliary system. Normal spleen. Normal pancreas. Normal bilateral adrenal glands. Mild ascites. There are hypodensities in the right kidney. These are consistent for cysts. No follow up required. No acute findings of the left kidney. There is a large hiatal hernia composed mostly of the fundus of the stomach. There are dilated loops of the small intestine with a non-distended colon consistent with a small bowel obstruction. There is a right inguinal hernia containing a loop of small bowel. This is the location of the transition point for the small bowel obstruction. Strangulation or incarceration is not excluded. Exclusion is based on physical examination. Physical examination may be warranted in individuals with hernias. Surveillance may be warranted in individuals with hernias. Stool throughout the colon. There is non-visualization of the appendix. Focal wall thickening of the antrum of stomach. This can suggest a gastritis. There are calcifications of the abdominal aorta. This is consistent for atherosclerotic disease. There is NO abdominal aortic aneurysm. Vascular workup can be obtained based on clinical correlation. Normal inferior vena cava. Subcentimeter mesenteric lymph nodes. Normal urinary bladder. There is an umbilical hernia containing fat. Normal osseous structures. Celiac and superior mesenteric arteries: There is moderate diffuse narrowing. Inferior mesenteric artery: No demonstrated narrowing. Right renal artery(arteries): No demonstrated narrowing. Left renal artery(arteries): There is mild diffuse narrowing. Right common iliac artery: There is mild diffuse narrowing. Right external iliac artery: There is mild diffuse narrowing. Right internal iliac artery: There is mild diffuse narrowing. Left common iliac artery: There is mild diffuse narrowing. Left external iliac artery: There is mild diffuse narrowing. Left internal iliac artery: There is mild diffuse narrowing. IMPRESSION: (NOT LISTED IN ORDER OF SIGNIFICANCE) There are dilated loops of the small intestine with a non-distended colon consistent with a small bowel obstruction. There is a right inguinal hernia containing a loop of small bowel. This is the location of the transition point for the small bowel obstruction. Strangulation or incarceration is not excluded. Exclusion is based on physical examination Mild ascites. Gastritis. Other findings as above. Electronically Signed: Richard Saab MD at 20:01 EDT , Chest X-Ray 04/08/23 21:53 IMPRESSION: Right jugular venous catheter in place, with the catheter tip projected over the right atrium. No pneumothorax. Electronically Signed: Mil Kennedy MD at 23:00 EDT , Chest X-Ray 04/09/23 00:29 IMPRESSION: Satisfactory positioning of central venous catheter and NG tube. Findings suspicious for developing pneumoperitoneum. If this patient has not undergone recent intra-abdominal surgery, the free air is most likely be due to bowel perforation; findings of small bowel obstruction were noted on the CT of one day ago. Nonstandard communication protocol initiated. Electronically Signed: Mil Kennedy MD at 1:20 EDT , ADDENDUM: 04/09/23 0132 IMPRESSION: Satisfactory positioning of central venous catheter and NG tube. Findings suspicious for developing pneumoperitoneum. If this patient has not undergone recent intra-abdominal surgery, the free air is most likely be due to bowel perforation; findings of small bowel obstruction were noted on the CT of one day ago. Nonstandard communication protocol initiated. N.B. : The above Results were Read Back by Mil Kennedy MD to Oanh Lozano RN, and understanding confirmed on 04/09/2023 01:25:47 (ET). Electronically Signed: Mil Kennedy MD at 1:20 EDT , ADDENDUM: 04/09/23 0134 IMPRESSION: undefined ADDENDUM: 04/09/23 013 IMPRESSION: undefined Charges/Coding Procedures Hospitalists Procedures: 88714 Critial Care 1st Hr
[2023-04-09] MEDS: 0.9% Normal Saline 1,000 ML 125 ML IV ×2 (11:54→20:11)
[2023-04-09] MEDS: Acetaminophen 325 MG Tablet 650 MG PO (14:31)
[2023-04-09] MEDS: Vancomycin IV 500 MG/100 ML BAG 100 MG IV (22:01)
[2023-04-09] MEDS: Ondansetron 4 MG/2 ML Vial IV (22:07)
[2023-04-10] VITALS (17 sets, daily range): BP systolic 113–174; BP diastolic 63–165; PULSE 80–116; RESP 16–29; TEMP 36.9–38.1; O2SAT 95–98; BMI 19.9
[2023-04-10 03:06] LABS: Hematocrit 38.1 % (37-47); Hemoglobin 12.5 g/dL (12.0-15.0); Mean Corp Hgb Conc 32.8 g/dL (32-36); Mean Corpuscular Hgb 31.6 pg (27.0-32.0); Mean Corpuscular Volume 96.5 fL (81-99); Mean Platelet Vol. 11.2 fl (6.2-12.0); NRBC Flagged by Analyzer 0 % (0-5); POSITIVE MORPHOLOGY YES; Platelet Count 199 K/mm3 (150-450); RBC Distribution Width CV 14.3 % (11.6-14.6); RBC Distribution Width SD 50.4 fl (35.1-43.9); Red Blood Count 3.95 M/mm3 (4.2-5.4); White Blood Count 6.8 K/mm3 (4.4-11.0)
[2023-04-10 03:13] LABS: Differential Indicated SCAN CRITERIA MET
[2023-04-10 04:03] LABS: ALB/GLOB Ratio 0.7 RATIO (0.9-2.4); AST(SGOT) 44 U/L (15-37); Alanine Aminotransfer ALT/SGPT 18 U/L (13-56); Alkaline Phosphatase 69 U/L (45-117); Anion Gap 4 (5-15); BUN 34 mg/dL (7-18); BUN/Creat Ratio 29.3 RATIO (10-20); Calcium,Total 7.6 mg/dL (8.5-10.1); Chloride 122 mmol/L (98-107); Creatinine, Serum 1.16 mg/dL (0.55-1.02); EST Glomerular Filtration Rate 48 mL/min (>60); Est Glom Filt Rate - Afr Amer 59 mL/min (>60); Estimated Creatinine Clearance 32.91 ml/min; Globulin 2.8 g/dL (2.2-4.2); Glucose 95 mg/dL (74-106); Magnesium 1.6 mg/dL (1.6-2.6); Phosphorus 3.1 mg/dL (2.5-4.9); Potassium 4.3 mmol/L (3.5-5.1); Protein, Total 4.8 g/dL (6.4-8.2); Sodium Level 147 mmol/L (136-145)
[2023-04-10] MEDS: 0.9% Normal Saline 1,000 ML 125 ML IV (04:11)
[2023-04-10 04:27] LABS: Scan Smear per Review Criteria MANUAL DIFF
[2023-04-10 04:28] LABS: Lymphocyte 19 % (19-41); Metamyelocyte 15 % (0-1); Monocyte 9 % (0-10); Myelocyte 11 % (0-0); Neutrophil-Band 30 % (0-5); Neutrophil-Segmented 17 % (47-70); Total Cells Counted 100 (MANUAL DIFF)
[2023-04-10 04:29] LABS: Pathologist Review May foll; Platelet Estimate ADEQUATE (ADEQ); Reactive Lymphocyte 1+; Red Cell Morphology NORM C+C NORMAL (NORM C&C); Toxic Granulation RARE; Vacuolated Cells 3+
[2023-04-10 04:30] LABS: Absolute Lymphocyte Count 1.29 X10^3/uL (0.83-4.51); Absolute Neutrophil Count 3.2 X10^3/uL (2.0-7.7); Lymphocyte # 1.29 X10^3/ul (0.83-4.51); Neutrophil # 3.18 X10^3/uL (2.7-7.7)
[2023-04-10] MEDS: Ondansetron 4 MG/2 ML Vial IV ×2 (04:58→21:45)
--- NOTE | 2023-04-10 08:31 | PCM.PN.SRG ---
Subjective Subjective Patient has not passed flatus yet. She reports her abdominal pain is tolerable. Objective Data Objective Data Vital Signs: Vital Signs Temp Pulse Resp BP Pulse Ox O2 Del Method O2 Flow Rate 99.8 F H 106 H 26 H 142/92 H 98 Room Air 2 04/10/23 07:00 04/10/23 07:00 04/10/23 07:00 04/10/23 07:00 04/10/23 07:20 04/10/23 07:20 04/09/23 04:00 Oxygen Flow Rate (L/min) 2 Oxygen Delivery Method Room Air Weight: 116 lb 13.52 oz Body Mass Index (BMI) 19.9 Intake & Output: Intake and Output for Last 24 Hours 04/08/23 04/09/23 04/10/23 23:59 23:59 23:59 Intake Total 2100 / 2100 4948.28 / 4948.28 1497.92 / 1497.92 Output Total 125 / 125 1275 / 1675 850 / 850 Balance 1974 / 1974 3673.28 / 3273.28 647.92 / 647.92 Medical Nutrition Assessment Dietitian: Malnutrition Criteria Met Start: 04/09/23 11:25 Freq: Status: Active Protocol: Document 04/09/23 11:26 RMA (Rec: 04/09/23 11:37 RMA [id number]) Nutrition Malnutrition Evidence of Malnutrition Exists Yes Malnutrition (severe): Acute Illness/Injury Evidenced By Suboptimal Energy Intake ( Severe),Weight Loss (Severe), Physical Changes (Moderate) Intake Problem Inadequate Oral Intake Etiology related to altered GI function /SBO Signs/Symptoms as evidenced by NPO and NG to suction Status Active Problem Clinical Problem Acute Disease or Injury Related Malnutrition Etiology Severe protein-calorie malnutrition in the context of acute illness related to altered GI function and inadequate oral intake Signs/Symptoms as evidenced by ~8% weight loss x past 1-2 months, BMI 18 .5, currently NPO, PO meeting less than 50% estimated nutrition needs x past 1 month and moderate muscle wasting and fat depletion in the face, clavicle, arms and legs Status Active Problem Recommendation Dietitian Recommendations/Changes Recommend advance PO as medically able to Transitional diet and as tolerated to goal of Regular diet. Will add Ensure Clear PO as able tolerate PO nutrition and advance diet. Consider parenteral nutrition support if long-term NPO expected greater than 3-4 days to prevent further energy/ protein depletion. Lab / Micro Data 04/10/23 03:00 04/10/23 03:00 Labs: Laboratory Results - last 24 hr 04/10/23 03:00: WBC 6.8, RBC 3.95 L, Hgb 12.5, Hct 38.1, MCV 96.5, MCH 31.6, MCHC 32.8, RDW Std Deviation 50.4 H, RDW Coeff of Loyda 14.3, Plt Count 199, MPV 11.2, Immature Gran % (Auto) FASHION DESIGN PROFESSOR, Neut % (Auto) FASHION DESIGN PROFESSOR, Lymph % (Auto) FASHION DESIGN PROFESSOR, [place] % (Auto) FASHION DESIGN PROFESSOR, Eos % (Auto) FASHION DESIGN PROFESSOR, Baso % (Auto) FASHION DESIGN PROFESSOR, Absolute Neuts (auto) 3.2, Absolute Lymphs (auto) 1.29, Total Counted 100, Neutrophils % (Manual) 17 L, Band Neutrophils % 30 H, Lymphocytes % (Manual) 19, Monocytes % (Manual) 9, Metamyelocytes % 15 H, Myelocytes % 11 H, Nucleated RBC % 0, Diff Path Review May foll, Reactive Lymphocytes 1+, Toxic Granulation RARE, Toxic Vacuolation 3+, Platelet Estimate ADEQUATE, RBC Morphology NORM C+C, Sodium 147 H, Potassium 4.3, Chloride 122 H, Carbon Dioxide 21.0, Anion Gap 4 L, BUN 34 H, Creatinine 1.16 H, Estim Creat Clear Calc 32.91, Est GFR (MDRD) Af Amer 59 L, Est GFR (MDRD) Non-Af 48 L, BUN/Creatinine Ratio 29.3 H, Glucose 95, Calcium 7.6 L, Phosphorus 3.1, Magnesium 1.6, Total Bilirubin 0.30, AST 44 H, ALT 18, Alkaline Phosphatase 69, Total Protein 4.8 L, Albumin 2.0 L, Globulin 2.8, Albumin/Globulin Ratio 0.7 L Radiography Diagnostic Testing: Radiology Impression Echocardiogram 04/09/23 08:12 Interpretation Summary The estimated ejection fraction is 65 %. No evidence for diastolic dysfunction. Ordering Physician: Payal Tobias Referring Physician: ABBI DALY Performed By: Tasha Foster RCS Physical Exam Const oriented x3 Resp normal respiratory effort GI soft to palpation Inspection: Negative for abdominal distention Palpation: tender Assessment & Plan Assessment/Plan (1) S/P small bowel resection: PLAN: Patient seems to be improving. She is off pressors. When she starts passing flatus I will remove her NG and start clear liquids. Domingo Johnson MD Pager: [facility] [address] [place] [address], [address] [place] [address] Office:
[2023-04-10] MEDS: 0.45% Normal Saline 1,000 ML 60 ML IV (08:43)
--- NOTE | 2023-04-10 09:30 | CASEMGMT ---
Addendum entered by Marci Diallo 04/10/23 17:38: 1530: Therapy has worked w/pt. They state SNF would be beneficial, if pt agreeable, but also state if pt wishes to return home and someone able to stay with her to assist, then HHC would also be appropriate. RN CM to room. Pt sitting up in recliner chair. Sister @ bedside. Pt made aware of recommendations. Pt states she still wishes to return home and sister verifies b/w her and pt's dtr, someone can be w/pt 28/04 and able to assist her. They state interested in HHC, but pt would like to discuss w/her dtr 1st. She states her dtr will be in later today and will talk w/her then. A list of C providers including quality and resource use data and consistent with the patient?s preferred geographic region, medical needs, and insurance network were provided from the [employer] Guide. AIDAN SUAREZ informed someone would f/u w/them tomorrow re: decision. Original Note: RN?CM?MASK INSPECTOR?CM?to room to meet with patient for initial transition planning/care coordination?assessment.?RN?CM?introduced self and role at [facility].? Pt voices understanding and consents to?assessment?at this time.? Pt resting in bed in no distress at this time.? Sisters, Lyndsay and Halie, @ bedside and pt agreeable to them being present during assessment. Pt is A/O at this time and answers all questions appropriately.?? Care providers, pharmacy, and demographics verified/updated at this time. PCP:Dr Russell Specialists:Dr Martins Preferred [facility]acy: [facility] Insurance: Bart COLÓN Prescription Benefit:?Yes Living Will/HPOA:?Has both LW and HCPOA, who is her dtr, Taryn LNOK: Dtr, Taryn. 2 sisters: Lyndsay and Halie. Brother Living Arrangements: Lives alone in one-story home w/basement and 2 steps to enter. Indep w/ADL's, IADL's, gets her own groceries and manages her own medications and appts. Transportation:?Pt states drives self and states no transportation concerns at this time.?Family can take her home @ d/c. DME: ? Denies using any DME and denies needs. Has built-in shower seat. Has access to walker, BSC, and cane. Interested in medical alert info. Denies other DME needs at this time. HHC/SNF: No hx of either. Prefers to return home and interested in HHC. States, if she is too weak and if therapy recommends SNF, she may be interested in [facility], but she reiterates she would really prefer home. Either sister or dtr can stay w/her / to assist, if needed. Sister states she can stay w/her as long as needed. Pt and family made aware therapy would work w/pt today and would make recommendations. CM will f/u with them afterwards. Pt wishes to return home, if able. CM?to follow for home oxygen needs and any further discharge planning/needs.? Pt and family voice no further concerns/needs at this time.? Advised them to ask for?CM?if any further questions/concerns/needs arise.? They voice understanding. PLAN:??TBD. Home w/HHC vs SNF. PT/OT evals pending. Lynne BSN?RN?CM
--- NOTE | 2023-04-10 10:04 | PCM.PN.INT ---
Assessment & Plan Assessment/Plan (1) S/P small bowel resection: PLAN: POD #2 after successful emergent small bowel resection by Dr Johnson 04/09 due to necrotic bowel from an incarcerated right inguinal hernia. She has done well, making good progress, and will be transferred to the regular floor today. Critical care will therefore sign off, thank you for asking [facility] to help care for your patient. (2) Septic shock: PLAN: Resolved. Weaned off Levophed yesterday. IV fluids decreased to 60 cc an hour for maintenance until she is able to take p.o. - Continuing Vanco, cefepime, Flagyl for now. - Monitor culture results, discontinue vancomycin when possible - Pharmacy to monitor Vanco troughs - Hospitalist team to continue following patient, discussed with Dr. Tobias. (3) Right inguinal hernia: PLAN: Repaired. Managed by Dr Johnson (4) Elevated troponin: PLAN: Downtrending. Likely secondary to stress of surgery, hypotension and relative intravascular depletion. Echocardiogram yesterday was normal. This would likely be of no clinical significance. - Patient is with no complaint of chest pain or pressure, no dyspnea and no pulmonary edema. She is on room air. - Continue bronchopulmonary hygiene incentive spirometry. Her chest x-ray has small amount of atelectasis. Right IJ is well-placed. (5) DIONICIO (acute kidney injury): PLAN: Related to shock/hypoperfusion. ATN. Creatinine is improving, BUN has increased slightly, likely secondary to surgery and mild intravascular depletion. Urine output has improved. - Maintain adequate CVP, hydrate, monitor urine output and daily weights, - Continue maintenance IV fluids, consider increasing to 75 cc an hour. - Check CVP (6) Leukocytosis: PLAN: Secondary to sepsis. Now normal. - (7) Lactic acidosis: PLAN: Downtrending. Off pressors. PLAN: Plan Other stable problems that may affect current recovery: Hyperlipidemia, hypothyroidism, GERD. - Resume pantoprazole, increased from 40 once daily to 80 twice daily today due to worsening dyspepsia and brownish NG tube drainage. Needs continued monitoring on the floor, decreased to 40 once or twice daily once her dyspepsia is resolved. - Routine DVT prophylaxis when approved by surgery - Resume levothyroxine 100 mcg p.o. daily. - Hold lipid medications until she can take p.o. - SCDs until mobilized and able to take anticoagulation Care time spent with patient at bedside, review of documentation, lab results, radiology and other test results, discussion with colleagues and ancillary staff, clinical management of patient was 30 minutes. [place] [address]. Subjective Subjective Patient is feeling better today, and is clinically improved.. Has the usual amount of expected postoperative pain, out of bed to chair, tolerating ice chips. She complains of severe epigastric pain like her gastritis. NG tube drainage is dark brownish, no coffee grounds. Denies fevers chills sweats cough dyspnea. No chest pain. She is off pressors the fluid rate has been decreased at 60 an hour. She will be transferred out of intensive care to the floor today.. Discussed with Dr. Tobias, hospitalist. Objective Data Objective Data Vital Signs: Vital Signs Temp Pulse Resp BP Pulse Ox O2 Del Method O2 Flow Rate 99.8 F H 106 H 26 H 142/92 H 98 Room Air 2 04/10/23 07:00 04/10/23 07:00 04/10/23 07:00 04/10/23 07:00 04/10/23 07:20 04/10/23 07:20 04/09/23 04:00 Oxygen Flow Rate (L/min) 2 Oxygen Delivery Method Room Air Weight: 116 lb 13.52 oz Body Mass Index (BMI) 19.9 Intake & Output: Intake and Output for Last 24 Hours 04/08/23 04/09/23 04/10/23 23:59 23:59 23:59 Intake Total 2100 / 2100 4948.28 / 4948.28 1555.25 / 1555.25 Output Total 125 / 125 1275 / 1675 850 / 850 Balance 1974 / 1974 3673.28 / 3273.28 705.25 / 705.25 Medical Nutrition Assessment Dietitian: Malnutrition Criteria Met Start: 04/09/23 11:25 Freq: Status: Active Protocol: Document 04/09/23 11:26 RMA (Rec: 04/09/23 11:37 RMA [id number]) Nutrition Malnutrition Evidence of Malnutrition Exists Yes Malnutrition (severe): Acute Illness/Injury Evidenced By Suboptimal Energy Intake ( Severe),Weight Loss (Severe), Physical Changes (Moderate) Intake Problem Inadequate Oral Intake Etiology related to altered GI function /SBO Signs/Symptoms as evidenced by NPO and NG to suction Status Active Problem Clinical Problem Acute Disease or Injury Related Malnutrition Etiology Severe protein-calorie malnutrition in the context of acute illness related to altered GI function and inadequate oral intake Signs/Symptoms as evidenced by ~8% weight loss x past 1-2 months, BMI 18 .5, currently NPO, PO meeting less than 50% estimated nutrition needs x past 1 month and moderate muscle wasting and fat depletion in the face, clavicle, arms and legs Status Active Problem Recommendation Dietitian Recommendations/Changes Recommend advance PO as medically able to Transitional diet and as tolerated to goal of Regular diet. Will add Ensure Clear PO as able tolerate PO nutrition and advance diet. Consider parenteral nutrition support if long-term NPO expected greater than 3-4 days to prevent further energy/ protein depletion. Lab / Micro Data Attestation: I reviewed the patient's lab results. 04/10/23 03:00 04/10/23 03:00 Labs: Laboratory Results - last 24 hr 04/10/23 03:00: WBC 6.8, RBC 3.95 L, Hgb 12.5, Hct 38.1, MCV 96.5, MCH 31.6, MCHC 32.8, RDW Std Deviation 50.4 H, RDW Coeff of Loyda 14.3, Plt Count 199, MPV 11.2, Immature Gran % (Auto) BILINGUAL KINDERGARTEN TEACHER, Neut % (Auto) BILINGUAL KINDERGARTEN TEACHER, Lymph % (Auto) BILINGUAL KINDERGARTEN TEACHER, [place] % (Auto) BILINGUAL KINDERGARTEN TEACHER, Eos % (Auto) BILINGUAL KINDERGARTEN TEACHER, Baso % (Auto) BILINGUAL KINDERGARTEN TEACHER, Absolute Neuts (auto) 3.2, Absolute Lymphs (auto) 1.29, Total Counted 100, Neutrophils % (Manual) 17 L, Band Neutrophils % 30 H, Lymphocytes % (Manual) 19, Monocytes % (Manual) 9, Metamyelocytes % 15 H, Myelocytes % 11 H, Nucleated RBC % 0, Diff Path Review May foll, Reactive Lymphocytes 1+, Toxic Granulation RARE, Toxic Vacuolation 3+, Platelet Estimate ADEQUATE, RBC Morphology NORM C+C, Sodium 147 H, Potassium 4.3, Chloride 122 H, Carbon Dioxide 21.0, Anion Gap 4 L, BUN 34 H, Creatinine 1.16 H, Estim Creat Clear Calc 32.91, Est GFR (MDRD) Af Amer 59 L, Est GFR (MDRD) Non-Af 48 L, BUN/Creatinine Ratio 29.3 H, Glucose 95, Calcium 7.6 L, Phosphorus 3.1, Magnesium 1.6, Total Bilirubin 0.30, AST 44 H, ALT 18, Alkaline Phosphatase 69, Total Protein 4.8 L, Albumin 2.0 L, Globulin 2.8, Albumin/Globulin Ratio 0.7 L Micro: Microbiology 04/08/23 19:40 Urine, Catheterized Urine Culture - Preliminary GNR lactose power plant operator Radiography Diagnostic Testing: Radiology Impression Echocardiogram 04/09/23 08:12 Interpretation Summary The estimated ejection fraction is 65 %. No evidence for diastolic dysfunction. Ordering Physician: Payal Tobias Referring Physician: ABBI DALY Performed By: Tasha Foster RCS Physical Exam Narrative Well-developed well-nourished no acute distress. Slender, BMI is 20 today. HEENT has NG tube in place with dark brownish-green drainage of mild to moderate amounts. Mucous membranes are moist. Neck is supple, CVL in place in good condition, no erythema minimal bleeding at site. Lungs are clear bilaterally, few rhonchi that clear with cough. Heart normal S1-S2 with no murmurs, no gallops. Abdomen dressing in place clean and dry. Not disturbed for exam today. Mild tenderness, no rebound. Some bowel sounds are present. Extremities have no clubbing cyanosis or edema. Neurologic is nonfocal, she is alert and oriented. Skin is warm and dry. Charges/Coding Visit Charges Inpatient E&M: 44653 Subs Hosp L2
--- NOTE | 2023-04-10 10:26 | CASEMGMT ---
Discharge Planning HH and SNF list created and given to RN ERICK. Bonnie Garcia, Discharge Planning Asst.
--- NOTE | 2023-04-10 12:23 | PN.HOSP_ITS ---
Reason for Visit Reason for Visit: Abdominal pain Subjective Subjective Patient states she is feeling better today. Still having some abdominal pain. Really would like to eat and drink. I discussed why she could not eat at this time and she did voiced understanding. She has been off pressors since yesterday afternoon. Blood pressures remained stable. No bowel movement or flatus. Objective Data Objective Data Vital Signs: Vital Signs Temp Pulse Resp BP Pulse Ox O2 Del Method O2 Flow Rate 100.3 F H 104 H 29 H 122/64 H 96 Room Air 2 04/10/23 11:00 04/10/23 11:00 04/10/23 11:00 04/10/23 11:00 04/10/23 11:00 04/10/23 11:00 04/09/23 04:00 Oxygen Flow Rate (L/min) 2 Oxygen Delivery Method Room Air Weight: 53 kg Body Mass Index (BMI) 19.9 Intake & Output: Intake and Output for Last 24 Hours 04/08/23 04/09/23 04/10/23 23:59 23:59 23:59 Intake Total 2100 / 2100 4948.28 / 4948.28 1655.25 / 1655.25 Output Total 125 / 125 1275 / 1675 1150 / 1150 Balance 1974 / 1974 3673.28 / 3273.28 505.25 / 505.25 Medical Nutrition Assessment Dietitian: Malnutrition Criteria Met Start: 04/09/23 11:25 Freq: Status: Active Protocol: Document 04/09/23 11:26 RMA (Rec: 04/09/23 11:37 RMA [id number]) Nutrition Malnutrition Evidence of Malnutrition Exists Yes Malnutrition (severe): Acute Illness/Injury Evidenced By Suboptimal Energy Intake ( Severe),Weight Loss (Severe), Physical Changes (Moderate) Intake Problem Inadequate Oral Intake Etiology related to altered GI function /SBO Signs/Symptoms as evidenced by NPO and NG to suction Status Active Problem Clinical Problem Acute Disease or Injury Related Malnutrition Etiology Severe protein-calorie malnutrition in the context of acute illness related to altered GI function and inadequate oral intake Signs/Symptoms as evidenced by ~8% weight loss x past 1-2 months, BMI 18 .5, currently NPO, PO meeting less than 50% estimated nutrition needs x past 1 month and moderate muscle wasting and fat depletion in the face, clavicle, arms and legs Status Active Problem Recommendation Dietitian Recommendations/Changes Recommend advance PO as medically able to Transitional diet and as tolerated to goal of Regular diet. Will add Ensure Clear PO as able tolerate PO nutrition and advance diet. Consider parenteral nutrition support if long-term NPO expected greater than 3-4 days to prevent further energy/ protein depletion. Lab / Micro Data 04/10/23 03:00 04/10/23 03:00 Labs: Laboratory Results - last 24 hr 04/10/23 03:00: WBC 6.8, RBC 3.95 L, Hgb 12.5, Hct 38.1, MCV 96.5, MCH 31.6, MCHC 32.8, RDW Std Deviation 50.4 H, RDW Coeff of Loyda 14.3, Plt Count 199, MPV 11.2, Immature Gran % (Auto) REPAIRER HELPER, Neut % (Auto) REPAIRER HELPER, Lymph % (Auto) REPAIRER HELPER, [place] % (Auto) REPAIRER HELPER, Eos % (Auto) REPAIRER HELPER, Baso % (Auto) REPAIRER HELPER, Absolute Neuts (auto) 3.2, Absolute Lymphs (auto) 1.29, Total Counted 100, Neutrophils % (Manual) 17 L, Band Neutrophils % 30 H, Lymphocytes % (Manual) 19, Monocytes % (Manual) 9, Metamyelocytes % 15 H, Myelocytes % 11 H, Nucleated RBC % 0, Diff Path Review May foll, Reactive Lymphocytes 1+, Toxic Granulation RARE, Toxic Vacuolation 3+, Platelet Estimate ADEQUATE, RBC Morphology NORM C+C, Sodium 147 H, Potassium 4.3, Chloride 122 H, Carbon Dioxide 21.0, Anion Gap 4 L, BUN 34 H, Creatinine 1.16 H, Estim Creat Clear Calc 32.91, Est GFR (MDRD) Af Amer 59 L, Est GFR (MDRD) Non-Af 48 L, BUN/Creatinine Ratio 29.3 H, Glucose 95, Calcium 7.6 L, Phosphorus 3.1, Magnesium 1.6, Total Bilirubin 0.30, AST 44 H, ALT 18, Alkaline Phosphatase 69, Total Protein 4.8 L, Albumin 2.0 L, Globulin 2.8, Albumin/Globulin Ratio 0.7 L Micro: Microbiology 04/08/23 19:40 Urine, Catheterized Urine Culture - Preliminary GNR lactose medical assistant secretary Radiography Diagnostic Testing: Radiology Impression Echocardiogram 04/09/23 08:12 Interpretation Summary The estimated ejection fraction is 65 %. No evidence for diastolic dysfunction. Ordering Physician: Payal Tobias Referring Physician: ABBI DALY Performed By: Tasha Foster RCS Physical Exam Const alert, oriented x3 and no apparent distress; Negative for average body habitus or healthy appearing Constitutional Narrative: Thin, elderly, white female, sitting up in bed, appears much more comfortable today, nontoxic HEENT head/scalp atraumatic and moist oral mucous membranes HEENT Narrative: Mallampati 1, no thrush, NG tube in place Resp normal respiratory effort, no retractions, no use of accessory muscles and clear to auscultation bilaterally Resp Narrative: Diminished diffusely but no adventitious sounds noted Auscultation: Negative for rales, rhonchi or wheezes Cardio regular rate, regular rhythm, S1 normal heart sound, S2 normal heart sound, no murmurs, no rub, no gallops and no clicks GI GI Narrative: Abdomen soft, diffuse tenderness, incision is clean dry and intact, bowel sounds are hypoactive, no distention Extremity no clubbing, cyanosis or edema Extremity Narrative: Decreased lean muscle mass Neuro oriented x3, moves all extremities and no focal motor deficits Speech: speech normal Psych affect normal Psych Narrative: Very pleasant, interacts appropriately Assessment & Plan Assessment/Plan (1) Right inguinal hernia: (2) Septic shock: (3) Elevated troponin: (4) Lactic acidosis: (5) Leukocytosis: (6) DIONICIO (acute kidney injury): (7) Hyponatremia: (8) Hyperchloremia: PLAN: Plan Septic shock secondary to incarcerated small bowel secondary to right inguinal hernia -Postop day 2 small bowel resection -Pressors have been off since yesterday afternoon -Continue IV fluids but transition to half-normal saline with elevation of sodium and chloride and decreased to 60 cc/h -Continue broad-spectrum antibiotics -Cultures remain pending -Continue n.p.o. -Continue NG tube -Await return of bowel function -General surgery is following -CCM/pulm following -Okay for transfer to telemetry floor Lactic acidosis -Resolved DIONICIO -Baseline serum creatinine appears to be between 0.8 and 1 -Serum creatinine on presentation was 2.85 -Serum creatinine this morning is 1.16 and is almost back to baseline -Avoid nephrotoxins -Continue IV fluids but decrease rate and type of fluids -Maintain MAP greater than 65 Troponin elevation -Peak troponin was 128 and has trended down since then -Likely related to type II NSTEMI related to demand ischemia from septic shock -Echocardiogram showed an EF of 60% with no wall motion abnormalities and no valvular disorder Leukocytosis -Resolved -We will await finalized cultures to change antibiotics Hypernatremia/hyperchloremia -Likely related to volume resuscitation with normal saline -Discontinue normal saline -Start half-normal saline at 60 cc/h COPD -Previous PFTs done on 03/06/2015 showed mild large airway obstruction with ventilatory defect and no response to bronchodilators -History of tobacco abuse -As needed nebulizers Osteoporosis -Restart Boniva at discharge Hypothyroidism -Restart levothyroxine when bowel function returns or dose IV weekly GERD -IV Protonix 40 mg daily Hyperlipidemia -Restart rosuvastatin once p.o. intake is permitted History of tobacco abuse -Recommend ongoing cessation DVT prophylaxis -SCDs for now -We will leave chemoprophylaxis to primary service Charges/Coding Visit Charges Inpatient E&M: 94488 Subs Hosp L2
[2023-04-10] MEDS: Acetaminophen 325 MG Tablet 650 MG PO ×2 (13:59→20:56)
[2023-04-10 22:58] LABS: Vancomycin, Trough Level 3.7 ug/mL (5.0-15.0)
[2023-04-10] MEDS: Vancomycin IV 500 MG/100 ML BAG 100 MG IV (23:22)
[2023-04-10] MEDS: NYSTATIN 500,000 UNIT/5 ML UDC 500000 UNIT PO (23:36)
--- NOTE | 2023-04-10 23:38 | PHA.PHARE_ITS ---
Consult Antibiotic Management Pharmacy has been consulted to manage selected antiobiotic: Vancomycin Type of Intervention Type of Consult: Follow-up Suspected Infection Suspected Infection: Sepsis Labs Labs: Sodium 147 mmol/L (136-145) H 04/10/23 03:00 Potassium 4.3 mmol/L (3.5-5.1) 04/10/23 03:00 Chloride 122 mmol/L (98-107) H 04/10/23 03:00 Carbon Dioxide 21.0 mmol/L (21.0-32.0) 04/10/23 03:00 Anion Gap 4 (5-15) L 04/10/23 03:00 BUN 34 mg/dL (7-18) H 04/10/23 03:00 Creatinine 1.16 mg/dL (0.55-1.02) H 04/10/23 03:00 Est GFR (MDRD) Af Amer 59 mL/min (>60) L 04/10/23 03:00 Est GFR (MDRD) Non-Af 48 mL/min (>60) L 04/10/23 03:00 BUN/Creatinine Ratio 29.3 RATIO (10-20) H 04/10/23 03:00 Glucose 95 mg/dL (74-106) 04/10/23 03:00 Vancomycin Trough 3.7 ug/mL (5.0-15.0) L 04/10/23 21:40 Microbiology Microbiology: Microbiology 04/08/23 19:40 Urine, Catheterized Urine Culture - Preliminary GNR lactose pellet post inspector Dosing Weight Weight used for dosin kg Estimated Creatinine Clearance Estimated Creatinine Clearance: 33 Goal Trough Goal Trough: 15-20 mcg/mL Pharmacy Plan for Drug Dosing Pharmacy Plan for Drug Dosing: Vancomycin trough level of 3.7 was low. Will increase frequency to 500mg q12h, and will re-draw a trough in four doses. Pharmacy Service will continue to monitor and adjust dosing as required. Follow-Up Labs Follow-Up Labs: Trough: Vancomycin Date/Time Labs Ordered Labs to be done on [date and time ordered]: 04/12/23 @1100
--- NOTE | 2023-04-10 23:44 | PCM.RX.CS ---
Consult Labs Labs: Sodium 147 mmol/L (136-145) H 04/10/23 03:00 Potassium 4.3 mmol/L (3.5-5.1) 04/10/23 03:00 Chloride 122 mmol/L (98-107) H 04/10/23 03:00 Carbon Dioxide 21.0 mmol/L (21.0-32.0) 04/10/23 03:00 Anion Gap 4 (5-15) L 04/10/23 03:00 BUN 34 mg/dL (7-18) H 04/10/23 03:00 Creatinine 1.16 mg/dL (0.55-1.02) H 04/10/23 03:00 Est GFR (MDRD) Af Amer 59 mL/min (>60) L 04/10/23 03:00 Est GFR (MDRD) Non-Af 48 mL/min (>60) L 04/10/23 03:00 BUN/Creatinine Ratio 29.3 RATIO (10-20) H 04/10/23 03:00 Glucose 95 mg/dL (74-106) 04/10/23 03:00 Vancomycin Trough 3.7 ug/mL (5.0-15.0) L 04/10/23 21:40 Microbiology Microbiology: Microbiology 04/08/23 19:40 Urine, Catheterized Urine Culture - Preliminary GNR lactose synchronous motor assembler Pharmacy Plan for Drug Dosing Pharmacy Plan for Drug Dosing: Pharmacy Service will continue to monitor and adjust dosing as required.
[2023-04-11 03:00] VITALS: BP 131/67; PULSE 81; RESP 16; TEMP 36.4; O2SAT 97
[2023-04-11] MEDS: fentaNYL 100 MCG/2 ML Ampul 50 MCG IV (03:21)
[2023-04-11] MEDS: 0.45% Normal Saline 1,000 ML 60 ML IV ×2 (03:21→16:56)
[2023-04-11 06:00] VITALS: BMI 20.7
[2023-04-11 06:27] LABS: Hematocrit 36.2 % (37-47); Hemoglobin 12.3 g/dL (12.0-15.0); Mean Corpuscular Hgb 32.3 pg (27.0-32.0); Mean Platelet Vol. 11.2 fl (6.2-12.0); POSITIVE MORPHOLOGY YES; Platelet Count 190 K/mm3 (150-450); RBC Distribution Width CV 14.6 % (11.6-14.6); RBC Distribution Width SD 50.6 fl (35.1-43.9); Red Blood Count 3.81 M/mm3 (4.2-5.4); White Blood Count 7.6 K/mm3 (4.4-11.0)
[2023-04-11 07:17] LABS: Anion Gap 10 (5-15); BUN 27 mg/dL (7-18); BUN/Creat Ratio 32.8 RATIO (10-20); Chloride 117 mmol/L (98-107); Creatinine, Serum 0.82 mg/dL (0.55-1.02); EST Glomerular Filtration Rate 72 mL/min (>60); Est Glom Filt Rate - Afr Amer 87 mL/min (>60); Estimated Creatinine Clearance 51.98 ml/min; Glucose 68 mg/dL (74-106); Magnesium 2.2 mg/dL (1.6-2.6); Potassium 3.9 mmol/L (3.5-5.1); Sodium Level 144 mmol/L (136-145)
[2023-04-11 08:22] LABS: Lymphocyte 13 % (19-41); Monocyte 8 % (0-10); Myelocyte 4 % (0-0); Neutrophil-Band 2 % (0-5); Neutrophil-Segmented 72 % (47-70); Other WBC Type 1 %; Total Cells Counted 100 (MANUAL DIFF)
[2023-04-11 08:23] LABS: Platelet Estimate ADEQUATE (ADEQ)
[2023-04-11 08:25] LABS: Red Cell Morphology NORM C+C NORMAL (NORM C&C)
[2023-04-11 08:26] LABS: Differential Indicated MANUAL DIFF
--- NOTE | 2023-04-11 08:29 | PN.SURG_ITS ---
Subjective Subjective Patient does not report any flatus yet. She is not having any distention or nausea. She reports her pain is well controlled. Objective Data Objective Data Vital Signs: Vital Signs Temp Pulse Resp BP Pulse Ox O2 Del Method O2 Flow Rate 97.6 F L 81 16 131/67 H 97 Room Air 2 04/11/23 03:00 04/11/23 03:00 04/11/23 03:00 04/11/23 03:00 04/11/23 03:00 04/11/23 03:00 04/09/23 04:00 Oxygen Flow Rate (L/min) 2 Oxygen Delivery Method Room Air Weight: 121 lb 4.068 oz Body Mass Index (BMI) 20.7 Intake & Output: Intake and Output for Last 24 Hours 04/09/23 04/10/23 04/11/23 23:59 23:59 23:59 Intake Total 4948.28 / 4948.28 2155.25 / 2205.25 1150 / 1150 Output Total 1275 / 1675 1700 / 2000 450 / 450 Balance 3673.28 / 3273.28 455.25 / 205.25 700 / 700 Medical Nutrition Assessment Dietitian: Malnutrition Criteria Met Start: 04/09/23 11:25 Freq: Status: Active Protocol: Document 04/09/23 11:26 RMA (Rec: 04/09/23 11:37 RMA [id number]) Nutrition Malnutrition Evidence of Malnutrition Exists Yes Malnutrition (severe): Acute Illness/Injury Evidenced By Suboptimal Energy Intake ( Severe),Weight Loss (Severe), Physical Changes (Moderate) Intake Problem Inadequate Oral Intake Etiology related to altered GI function /SBO Signs/Symptoms as evidenced by NPO and NG to suction Status Active Problem Clinical Problem Acute Disease or Injury Related Malnutrition Etiology Severe protein-calorie malnutrition in the context of acute illness related to altered GI function and inadequate oral intake Signs/Symptoms as evidenced by ~8% weight loss x past 1-2 months, BMI 18 .5, currently NPO, PO meeting less than 50% estimated nutrition needs x past 1 month and moderate muscle wasting and fat depletion in the face, clavicle, arms and legs Status Active Problem Recommendation Dietitian Recommendations/Changes Recommend advance PO as medically able to Transitional diet and as tolerated to goal of Regular diet. Will add Ensure Clear PO as able tolerate PO nutrition and advance diet. Consider parenteral nutrition support if long-term NPO expected greater than 3-4 days to prevent further energy/ protein depletion. Lab / Micro Data 04/11/23 06:17 04/11/23 06:17 Labs: Laboratory Results - last 24 hr 04/10/23 21:40: Vancomycin Trough 3.7 L 04/11/23 06:17: WBC 7.6, RBC 3.81 L, Hgb 12.3, Hct 36.2 L, MCV 95.0, MCH 32.3 H, MCHC 34.0, RDW Std Deviation 50.6 H, RDW Coeff of Loyda 14.6, Plt Count 190, MPV 11.2, Neut % (Auto) Not Reportable, Total Counted 100, Neutrophils % (Manual) 72 H, Band Neutrophils % 2, Lymphocytes % (Manual) 13 L, Monocytes % (Manual) 8, Myelocytes % 4 H, Other Cells % 1, Platelet Estimate ADEQUATE, RBC Morphology NORM C+C, Sodium 144, Potassium 3.9, Chloride 117 H, Carbon Dioxide 17.0 L, Anion Gap 10, BUN 27 H, Creatinine 0.82, Estim Creat Clear Calc 51.98, Est GFR (MDRD) Af Amer 87, Est GFR (MDRD) Non-Af 72, BUN/Creatinine Ratio 32.8 H, Glucose 68 L, Calcium 8.0 L, Magnesium 2.2 Micro: Microbiology 04/08/23 19:40 Urine, Catheterized Urine Culture - Final Escherichia coli Physical Exam Const oriented x3 Resp normal respiratory effort Cardio regular rate and regular rhythm GI soft to palpation and non-tender Assessment & Plan Assessment/Plan (1) S/P small bowel resection: PLAN: Patient appears to be doing well and her white count has normalized. I will stop her antibiotics. I removed her NG as her NG had minimal output. I will continue sips and chips until she starts passing flatus and then start advancing her diet. Domingo Johnson MD Pager: [facility] [address] [place] [address], [address] [place] [phone] Office:
[2023-04-11 08:30] LABS: Basophil 0 % (0-1); Blast 0 % (0-0); Eosinophil 0 % (0-5); NRBC Flagged by Analyzer 0 % (0-5); Plasma Cell 0 %
[2023-04-11 08:31] LABS: Metamyelocyte 0 % (0-1)
[2023-04-11 09:00] VITALS: BP 129/66; PULSE 82; RESP 18; TEMP 36.7; O2SAT 98
--- NOTE | 2023-04-11 10:15 | CASEMGMT ---
Addendum entered by Marci Diallo 04/11/23 11:30: Jenn called this [facility]. They are able to accept pt w/SOC slated for Saturday 04/14. This was added to discharge plan. [facility] to room. Pt made aware and voices understanding. [facility] was informed by juan francisco Nicole/carolin urban and regional planner, that family state they would like to get medical alert through [facility]. Pt made aware she/family will need to contact the # listed on medical alert paper provided to set this up, as [facility] does not make these arrangements. She voices understanding. Original Note: [facility] NOTE: Per Bonnie urban and regional planner, [facility] is 1st preference. Call to Jenn @ [facility]. No answer. VM left re: referral and made her aware pt is discharging home today. Awaiting response. Lynne BELTRANN [facility]
--- NOTE | 2023-04-11 10:16 | CASEMGMT ---
Discharge Planning Patient choices for HH are as follows; 1-[facility], 2-[facility], 3-[facility]. Information given to RN CM. Bonnie Garcia, Discharge Planning Asst.
[2023-04-11 10:38] LABS: Pathologist Review Reviewed
[2023-04-11] MEDS: Ondansetron 4 MG/2 ML Vial IV ×2 (11:32→23:33)
[2023-04-11] MEDS: Pantoprazole Sodium 40 MG Tablet PO (11:32)
[2023-04-11] MEDS: NYSTATIN 500,000 UNIT/5 ML UDC 500000 UNIT PO ×4 (11:33→23:32)
[2023-04-11] MEDS: Acetaminophen 325 MG Tablet 650 MG PO ×2 (13:38→23:32)
--- NOTE | 2023-04-11 13:43 | PCM.PN.HOSP ---
Reason for Visit Reason for Visit: Abdominal pain Subjective Subjective Pain is fairly well controlled. No nausea or vomiting. No flatus. Patient would really like to eat and drink but I did explain that that could potentially make things worse until her bowel function appears to be working more readily. She remains clinically stable. General surgery is going to remove her NG tube and give her sips and chips today. Plan is to reinitiate oral diet once bowel function appears to be returning. We will remove Mcpherson catheter today. Encourage ambulation and movement with physical therapy. Current plan for discharge is home with home health care when she is medically stable Objective Data Objective Data Vital Signs: Vital Signs Temp Pulse Resp BP Pulse Ox O2 Del Method O2 Flow Rate 97.6 F L 81 16 131/67 H 97 Room Air 2 04/11/23 03:00 04/11/23 03:00 04/11/23 03:00 04/11/23 03:00 04/11/23 03:00 04/11/23 03:00 04/09/23 04:00 Oxygen Flow Rate (L/min) 2 Oxygen Delivery Method Room Air Weight: 55 kg Body Mass Index (BMI) 20.7 Intake & Output: Intake and Output for Last 24 Hours 04/09/23 04/10/23 04/11/23 23:59 23:59 23:59 Intake Total 4948.28 / 4948.28 2155.25 / 2205.25 1150 / 1150 Output Total 1275 / 1675 1700 / 2000 450 / 450 Balance 3673.28 / 3273.28 455.25 / 205.25 700 / 700 Medical Nutrition Assessment Dietitian: Malnutrition Criteria Met Start: 04/09/23 11:25 Freq: Status: Active Protocol: Document 04/09/23 11:26 RMA (Rec: 04/09/23 11:37 RMA [id number]) Nutrition Malnutrition Evidence of Malnutrition Exists Yes Malnutrition (severe): Acute Illness/Injury Evidenced By Suboptimal Energy Intake ( Severe),Weight Loss (Severe), Physical Changes (Moderate) Intake Problem Inadequate Oral Intake Etiology related to altered GI function /SBO Signs/Symptoms as evidenced by NPO and NG to suction Status Active Problem Clinical Problem Acute Disease or Injury Related Malnutrition Etiology Severe protein-calorie malnutrition in the context of acute illness related to altered GI function and inadequate oral intake Signs/Symptoms as evidenced by ~8% weight loss x past 1-2 months, BMI 18 .5, currently NPO, PO meeting less than 50% estimated nutrition needs x past 1 month and moderate muscle wasting and fat depletion in the face, clavicle, arms and legs Status Active Problem Recommendation Dietitian Recommendations/Changes Recommend advance PO as medically able to Transitional diet and as tolerated to goal of Regular diet. Will add Ensure Clear PO as able tolerate PO nutrition and advance diet. Consider parenteral nutrition support if long-term NPO expected greater than 3-4 days to prevent further energy/ protein depletion. Lab / Micro Data 04/11/23 06:17 04/11/23 06:17 Labs: Laboratory Results - last 24 hr 04/10/23 21:40: Vancomycin Trough 3.7 L 04/11/23 06:17: WBC 7.6, RBC 3.81 L, Hgb 12.3, Hct 36.2 L, MCV 95.0, MCH 32.3 H, MCHC 34.0, RDW Std Deviation 50.6 H, RDW Coeff of Loyda 14.6, Plt Count 190, MPV 11.2, Neut % (Auto) Not Reportable, Total Counted 100, Neutrophils % (Manual) 72 H, Band Neutrophils % 2, Lymphocytes % (Manual) 13 L, Monocytes % (Manual) 8, Eosinophils % (Manual) 0, Basophils % (Manual) 0, Metamyelocytes % 0, Myelocytes % 4 H, Blast Cells % 0, Plasma Cell % (Manual) 0, Other Cells % 1, Nucleated RBC % 0, Diff Path Review Reviewed, Platelet Estimate ADEQUATE, RBC Morphology NORM C+C, Sodium 144, Potassium 3.9, Chloride 117 H, Carbon Dioxide 17.0 L, Anion Gap 10, BUN 27 H, Creatinine 0.82, Estim Creat Clear Calc 51.98, Est GFR (MDRD) Af Amer 87, Est GFR (MDRD) Non-Af 72, BUN/Creatinine Ratio 32.8 H, Glucose 68 L, Calcium 8.0 L, Magnesium 2.2 Micro: Microbiology 04/08/23 19:40 Urine, Catheterized Urine Culture - Final Escherichia coli Physical Exam Const alert, oriented x3 and no apparent distress; Negative for average body habitus or healthy appearing Constitutional Narrative: Thin, elderly, white female, sitting up in bed, appears comfortable, nontoxic, family at bedside HEENT head/scalp atraumatic and moist oral mucous membranes HEENT Narrative: NG tube in left nares, edentulous, no thrush Head and Scalp: normocephalic Resp normal respiratory effort, no retractions, no use of accessory muscles and clear to auscultation bilaterally Resp Narrative: Diminished diffusely but no adventitious sounds noted Auscultation: Negative for rales, rhonchi or wheezes Cardio regular rate, regular rhythm, S1 normal heart sound, S2 normal heart sound, no murmurs, no rub, no gallops and no clicks GI GI Narrative: Abdomen remains soft, very mild tenderness, incision remains clean dry and intact, bowel sounds are hypoactive but present, no distention Extremity no clubbing, cyanosis or edema Extremity Narrative: Decreased lean muscle mass Neuro oriented x3, moves all extremities and no focal motor deficits Speech: speech normal Psych affect normal Psych Narrative: Very pleasant, interacts appropriately Assessment & Plan Assessment/Plan (1) Right inguinal hernia: (2) Septic shock: (3) Elevated troponin: (4) Lactic acidosis: (5) Leukocytosis: (6) DIONICIO (acute kidney injury): (7) Hyponatremia: (8) Hyperchloremia: PLAN: Plan Septic shock secondary to incarcerated small bowel secondary to right inguinal hernia -Septic shock resolved -Postop day 3 small bowel resection -Patient off pressors for 48 hours now -Continue IV fluids but transition to half-normal saline with elevation of sodium and chloride and decreased to 60 cc/h -Per surgery stop antibiotics -Cultures remain pending -Start sips and chips -Remove NG today -Await return of bowel function -General surgery is following DIONICIO -Baseline serum creatinine appears to be between 0.8 and 1 -Serum creatinine on presentation was 2.85 -Serum creatinine this morning is 0.8 -Avoid nephrotoxins -Discontinue IV fluids with starting sips and chips per general surgery -Maintain MAP greater than 65 Troponin elevation -Peak troponin was 128 and has trended down since then -Likely related to type II NSTEMI related to demand ischemia from septic shock -Echocardiogram showed an EF of 60% with no wall motion abnormalities and no valvular disorder Hypernatremia/hyperchloremia -Hyponatremia has resolved -Hyperchloremia improving Metabolic acidosis secondary to hyperchloremia -Discontinue IV fluids -Repeat lab in a.m. COPD -Previous PFTs done on 03/06/2015 showed mild large airway obstruction with ventilatory defect and no response to bronchodilators -History of tobacco abuse -As needed nebulizers Osteoporosis -Restart Boniva at discharge Hypothyroidism -Restart levothyroxine when bowel function returns or dose IV weekly GERD -Continue IV Protonix 40 mg daily Hyperlipidemia -Restart rosuvastatin once p.o. intake is permitted History of tobacco abuse -Recommend ongoing cessation DVT prophylaxis -SCDs for now -We will leave chemoprophylaxis to primary service Charges/Coding Visit Charges Inpatient E&M: 10758 Subs Hosp L2
[2023-04-11] MEDS: MENTHOL 226.8 GM JAR 1 APPLIC TOPICAL (16:54)
[2023-04-11 21:00] VITALS: BP 120/57; PULSE 77; RESP 16; TEMP 36.8; O2SAT 99
[2023-04-11] MEDS: Atorvastatin Calcium 20 MG Tablet PO (23:32)
[2023-04-12 05:36] VITALS: BMI 20.7
[2023-04-12] MEDS: Levothyroxine 100 MCG Tablet PO (05:50)
[2023-04-12] MEDS: Ondansetron 4 MG/2 ML Vial IV ×2 (06:09→15:17)
[2023-04-12] MEDS: MENTHOL 226.8 GM JAR 1 APPLIC TOPICAL (06:17)
[2023-04-12 07:17] LABS: Hematocrit 36.2 % (37-47); Hemoglobin 11.7 g/dL (12.0-15.0); Mean Corp Hgb Conc 32.3 g/dL (32-36); Mean Corpuscular Hgb 31.8 pg (27.0-32.0); Mean Corpuscular Volume 98.4 fL (81-99); Mean Platelet Vol. 11.1 fl (6.2-12.0); POSITIVE MORPHOLOGY YES; Platelet Count 222 K/mm3 (150-450); RBC Distribution Width CV 14.5 % (11.6-14.6); RBC Distribution Width SD 52.7 fl (35.1-43.9); Red Blood Count 3.68 M/mm3 (4.2-5.4); White Blood Count 4.3 K/mm3 (4.4-11.0)
[2023-04-12 07:19] LABS: Absolute Lymphocyte Count 0.99 X10^3/uL (0.83-4.51); Absolute Neutrophil Count 5.9 X10^3/uL (2.0-7.7); Lymphocyte # 0.99 X10^3/ul (0.83-4.51); Neutrophil # 5.93 X10^3/uL (2.7-7.7)
[2023-04-12 07:34] LABS: Differential Indicated MANUAL DIFF
[2023-04-12 07:56] LABS: Anion Gap 12 (5-15); BUN 22 mg/dL (7-18); Calcium,Total 8.4 mg/dL (8.5-10.1); Chloride 112 mmol/L (98-107); Creatinine, Serum 0.69 mg/dL (0.55-1.02); EST Glomerular Filtration Rate 89 mL/min (>60); Est Glom Filt Rate - Afr Amer 107 mL/min (>60); Estimated Creatinine Clearance 42.62 ml/min; Glucose 86 mg/dL (74-106); Potassium 3.5 mmol/L (3.5-5.1); Sodium Level 140 mmol/L (136-145)
[2023-04-12] MEDS: NYSTATIN 500,000 UNIT/5 ML UDC 500000 UNIT PO ×3 (08:58→17:45)
[2023-04-12] MEDS: 0.45% Normal Saline 1,000 ML 60 ML IV (08:58)
[2023-04-12] MEDS: Pantoprazole Sodium 40 MG Tablet PO (08:58)
[2023-04-12 10:56] LABS: Eosinophil 2 % (0-5); Lymphocyte 14 % (19-41); Metamyelocyte 6 % (0-1); Monocyte 18 % (0-10); Myelocyte 5 % (0-0); Neutrophil-Band 3 % (0-5); Neutrophil-Segmented 52 % (47-70); Platelet Estimate ADEQUATE (ADEQ); Total Cells Counted 100 (MANUAL DIFF)
[2023-04-12 11:02] LABS: Absolute Neutrophil Count 2.3 X10^3/uL (2.0-7.7); Pathologist Review May foll; Red Cell Morphology NORM C+C NORMAL (NORM C&C)
--- NOTE | 2023-04-12 11:09 | EKG12_ITS ---
Test Reason : Blood Pressure : / mmHG Vent. Rate : 094 BPM Atrial Rate : 094 BPM P-R Int : 114 ms QRS Dur : 084 ms QT Int : 356 ms P-R-T Axes : 071 074 024 degrees QTc Int : 445 ms Normal sinus rhythm Cannot rule out Anterior infarct , age undetermined Abnormal ECG When compared with ECG of 08-APR-2023 19:11, Minimal criteria for Anterior infarct are now Present Confirmed by JASON ROLDAN, POLI ([id number]), editor map NHI BROCK ([id number]) on 04/15/2023 12:22:52 PM Referred By: TERESO Confirmed By:POLI GOMEZ MD
--- NOTE | 2023-04-12 11:14 | PN.SURG_ITS ---
Subjective Subjective Patient seen and examined during AM rounds. She is found resting in bed. She complains of some nausea and more severe reflux. Because of this reflux she denies an appetite. She also reports some belching and some flatus but no bowel movement. She has no significant pain. Objective Data Objective Data Vital Signs: Vital Signs Temp Pulse Resp BP Pulse Ox O2 Del Method O2 Flow Rate 98.2 F 77 16 120/57 L 99 Room Air 2 04/11/23 21:00 04/11/23 21:00 04/11/23 21:00 04/11/23 21:00 04/11/23 21:00 04/11/23 21:00 04/09/23 04:00 Oxygen Flow Rate (L/min) 2 Oxygen Delivery Method Room Air Weight: 121 lb 7.595 oz Body Mass Index (BMI) 20.7 Intake & Output: Intake and Output for Last 24 Hours 04/10/23 04/11/23 04/12/23 23:59 23:59 23:59 Intake Total 2155.25 / 2205.25 2875 / 2875 962 / 962 Output Total 1700 / 2000 450 / 700 250 / 250 Balance 455.25 / 205.25 2425 / 2175 712 / 712 Medical Nutrition Assessment Dietitian: Malnutrition Criteria Met Start: 04/09/23 11:25 Freq: Status: Active Protocol: Document 04/09/23 11:26 RMA (Rec: 04/09/23 11:37 RMA [id number]) Nutrition Malnutrition Evidence of Malnutrition Exists Yes Malnutrition (severe): Acute Illness/Injury Evidenced By Suboptimal Energy Intake ( Severe),Weight Loss (Severe), Physical Changes (Moderate) Intake Problem Inadequate Oral Intake Etiology related to altered GI function /SBO Signs/Symptoms as evidenced by NPO and NG to suction Status Active Problem Clinical Problem Acute Disease or Injury Related Malnutrition Etiology Severe protein-calorie malnutrition in the context of acute illness related to altered GI function and inadequate oral intake Signs/Symptoms as evidenced by ~8% weight loss x past 1-2 months, BMI 18 .5, currently NPO, PO meeting less than 50% estimated nutrition needs x past 1 month and moderate muscle wasting and fat depletion in the face, clavicle, arms and legs Status Active Problem Recommendation Dietitian Recommendations/Changes Recommend advance PO as medically able to Transitional diet and as tolerated to goal of Regular diet. Will add Ensure Clear PO as able tolerate PO nutrition and advance diet. Consider parenteral nutrition support if long-term NPO expected greater than 3-4 days to prevent further energy/ protein depletion. Lab / Micro Data 04/12/23 05:55 04/12/23 07:00 Labs: Laboratory Results - last 24 hr 04/11/23 06:17: Absolute Neuts (auto) 5.9, Absolute Lymphs (auto) 0.99 04/12/23 05:55: WBC 4.3 L, RBC 3.68 L, Hgb 11.7 L, Hct 36.2 L, MCV 98.4, MCH 31.8, MCHC 32.3, RDW Std Deviation 52.7 H, RDW Coeff of Loyda 14.5, Plt Count 222, MPV 11.1, Neut % (Auto) Not Reportable, Absolute Neuts (auto) 2.3, Absolute Lym phs (auto) 0.60 L, Total Counted 100, Neutrophils % (Manual) 52, Band Neutrophils % 3, Lymphocytes % (Manual) 14 L, Monocytes % (Manual) 18 H, Eosinophils % (Manual) 2, Metamyelocytes % 6 H, Myelocytes % 5 H, Diff Path Review May foll, Platelet Estimate ADEQUATE, RBC Morphology NORM C+C 04/12/23 07:00: Sodium 140, Potassium 3.5, Chloride 112 H, Carbon Dioxide 16.0 L , Anion Gap 12, BUN 22 H, Creatinine 0.69, Estim Creat Clear Calc 42.62, Est GFR (MDRD) Af Amer 107, Est GFR (MDRD) Non-Af 89, BUN/Creatinine Ratio 32.0 H, Glucose 86, Calcium 8.4 L Micro: Microbiology 04/09/23 06:00 Blood Culture (Wb) - Left Forearm Blood Culture - Preliminary No growth in 48 hours. 04/09/23 05:45 Blood Culture (Wb) - Line Draw Blood Culture - Preliminary No growth in 48 hours. 04/08/23 19:45 Blood Culture (Wb) - Anticubital Left Blood Culture - Preliminary No growth in 48 hours. 04/08/23 19:15 Blood Culture (Wb) - Anticubital Left Blood Culture - Preliminary No growth in 48 hours. 04/08/23 19:40 Urine, Catheterized Urine Culture - Final Escherichia coli Physical Exam Const oriented x3 Constitutional Narrative: Mild distress due to nausea Resp normal respiratory effort GI GI Narrative: Mild abdominal distention, soft, minimally tender to palpation about incision superficially. Incision remains well approximated with skin francisco. There is no erythema or drainage. Assessment & Plan Assessment/Plan (1) S/P small bowel resection: PLAN: Patient is postoperative day 3 from exploratory laparotomy with small bowel resection for strangulated right inguinal hernia. She had her nasogastric tube removed yesterday after volume decrease. However, she is still yet to have a bowel movement. She reports some flatus, but is experiencing more belching and nausea. This suggests that she is still resolving a postoperative ileus. Her exam is overall reassuring with no wound concerns and minimal distention. Therefore, I am inclined to continue IV fluid support and have encouraged her to try to ambulate as much as possible today. We will plan to reassess for possible diet initiation later today as patient reports no substantial nutrition in the last 6 days. Charges/Coding Visit Charges Inpatient E&M: 23052 Subs Hosp L2
--- NOTE | 2023-04-12 11:38 | PCM.PN.HOSP ---
Reason for Visit Reason for Visit: Abdominal pain Subjective Subjective Is not complaining of nausea this morning which is new since her NG tube was removed. She is also having some belching. She is passing small amounts of flatus but no bowel movement as of yet. She is complaining of some heartburn. Objective Data Objective Data Vital Signs: Vital Signs Temp Pulse Resp BP Pulse Ox O2 Del Method O2 Flow Rate 98.2 F 77 16 120/57 L 99 Room Air 2 04/11/23 21:00 04/11/23 21:00 04/11/23 21:00 04/11/23 21:00 04/11/23 21:00 04/11/23 21:00 04/09/23 04:00 Oxygen Flow Rate (L/min) 2 Oxygen Delivery Method Room Air Weight: 55.1 kg Body Mass Index (BMI) 20.7 Intake & Output: Intake and Output for Last 24 Hours 04/10/23 04/11/23 04/12/23 23:59 23:59 23:59 Intake Total 2155.25 / 2205.25 2875 / 2875 962 / 962 Output Total 1700 / 2000 450 / 700 250 / 250 Balance 455.25 / 205.25 2425 / 2175 712 / 712 Medical Nutrition Assessment Dietitian: Malnutrition Criteria Met Start: 04/09/23 11:25 Freq: Status: Active Protocol: Document 04/09/23 11:26 RMA (Rec: 04/09/23 11:37 RMA [id number]) Nutrition Malnutrition Evidence of Malnutrition Exists Yes Malnutrition (severe): Acute Illness/Injury Evidenced By Suboptimal Energy Intake ( Severe),Weight Loss (Severe), Physical Changes (Moderate) Intake Problem Inadequate Oral Intake Etiology related to altered GI function /SBO Signs/Symptoms as evidenced by NPO and NG to suction Status Active Problem Clinical Problem Acute Disease or Injury Related Malnutrition Etiology Severe protein-calorie malnutrition in the context of acute illness related to altered GI function and inadequate oral intake Signs/Symptoms as evidenced by ~8% weight loss x past 1-2 months, BMI 18 .5, currently NPO, PO meeting less than 50% estimated nutrition needs x past 1 month and moderate muscle wasting and fat depletion in the face, clavicle, arms and legs Status Active Problem Recommendation Dietitian Recommendations/Changes Recommend advance PO as medically able to Transitional diet and as tolerated to goal of Regular diet. Will add Ensure Clear PO as able tolerate PO nutrition and advance diet. Consider parenteral nutrition support if long-term NPO expected greater than 3-4 days to prevent further energy/ protein depletion. Lab / Micro Data 04/12/23 05:55 04/12/23 07:00 Labs: Laboratory Results - last 24 hr 04/11/23 06:17: Absolute Neuts (auto) 5.9, Absolute Lymphs (auto) 0.99 04/12/23 05:55: WBC 4.3 L, RBC 3.68 L, Hgb 11.7 L, Hct 36.2 L, MCV 98.4, MCH 31.8, MCHC 32.3, RDW Std Deviation 52.7 H, RDW Coeff of Loyda 14.5, Plt Count 222, MPV 11.1, Neut % (Auto) Not Reportable, Absolute Neuts (auto) 2.3, Absolute Lymphs (auto) 0.60 L, Total Counted 100, Neutrophils % (Manual) 52, Band Neutrophils % 3, Lymphocytes % (Manual) 14 L, Monocytes % (Manual) 18 H, Eosinophils % (Manual) 2, Metamyelocytes % 6 H, Myelocytes % 5 H, Diff Path Review May foll, Platelet Estimate ADEQUATE, RBC Morphology NORM C+C 04/12/23 07:00: Sodium 140, Potassium 3.5, Chloride 112 H, Carbon Dioxide 16.0 L, Anion Gap 12, BUN 22 H, Creatinine 0.69, Estim Creat Clear Calc 42.62, Est GFR (MDRD) Af Amer 107, Est GFR (MDRD) Non-Af 89, BUN/Creatinine Ratio 32.0 H, Glucose 86, Calcium 8.4 L 04/12/23 10:45: Vancomycin Trough 2.0 L Micro: Microbiology 04/09/23 06:00 Blood Culture (Wb) - Left Forearm Blood Culture - Preliminary No growth in 48 hours. 04/09/23 05:45 Blood Culture (Wb) - Line Draw Blood Culture - Preliminary No growth in 48 hours. 04/08/23 19:45 Blood Culture (Wb) - Anticubital Left Blood Culture - Preliminary No growth in 48 hours. 04/08/23 19:15 Blood Culture (Wb) - Anticubital Left Blood Culture - Preliminary No growth in 48 hours. 04/08/23 19:40 Urine, Catheterized Urine Culture - Final Escherichia coli Physical Exam Const alert, oriented x3 and no apparent distress; Negative for average body habitus or healthy appearing Constitutional Narrative: Thin, elderly, white female, sitting up in bed, appears comfortable, nontoxic HEENT head/scalp atraumatic and moist oral mucous membranes HEENT Narrative: NGT out Head and Scalp: normocephalic Resp normal respiratory effort, no retractions, no use of accessory muscles and clear to auscultation bilaterally Resp Narrative: Diminished diffusely but no adventitious sounds noted Auscultation: Negative for rales, rhonchi or wheezes Cardio regular rate, regular rhythm, S1 normal heart sound, S2 normal heart sound, no murmurs, no rub, no gallops and no clicks GI GI Narrative: Abdomen remains soft, very mild tenderness, incision remains clean dry and intact, bowel sounds are hypoactive but present, no distention Extremity no clubbing, cyanosis or edema Extremity Narrative: Decreased lean muscle mass Neuro oriented x3, CN's II-XII intact bilaterally, moves all extremities and no focal motor deficits Speech: speech normal Psych affect normal Psych Narrative: Very pleasant, interacts appropriately Assessment & Plan Assessment/Plan (1) Right inguinal hernia: (2) Septic shock: (3) Elevated troponin: (4) Lactic acidosis: (5) Leukocytosis: (6) DIONICIO (acute kidney injury): (7) Hyponatremia: (8) Hyperchloremia: PLAN: Plan Septic shock secondary to incarcerated small bowel secondary to right inguinal hernia -Septic shock resolved -Postop day 4 small bowel resection -Continue IV fluids but transition to half-normal saline with elevation of sodium and chloride and decreased to 60 cc/h -Antibiotics discontinued on 04/11/2023 -Urine culture shows less than the thousand E. coli so insignificant -Blood cultures are negative at 48 hours -Continue sips and chips -Await return of bowel function -General surgery is following Postoperative ileus -N.p.o. except for sips and chips -Continue IV hydration at 60 cc/h -Antiemetics as needed DIONICIO -Resolved Troponin elevation -Peak troponin was 128 and has trended down since then -Likely related to type II NSTEMI related to demand ischemia from septic shock -Echocardiogram showed an EF of 60% with no wall motion abnormalities and no valvular disorder -Patient with some reflux symptoms now we will give GI cocktail as a suspect is related to her bowel function however will check troponin and EKG Hypernatremia/hyperchloremia -Solved Metabolic acidosis secondary to hyperchloremia -We will still on half-normal saline as surgery must not have discontinued fluids as per note -Bicarb is down again today -Transition to LR and repeat lab in a.m. COPD -Previous PFTs done on 03/06/2015 showed mild large airway obstruction with ventilatory defect and no response to bronchodilators -History of tobacco abuse -As needed nebulizers Osteoporosis -Restart Boniva at discharge Hypothyroidism -Restart levothyroxine when bowel function returns or dose IV weekly -Day 4 without replacement GERD -Continue IV Protonix 40 mg daily Hyperlipidemia -Restart rosuvastatin once p.o. intake is permitted History of tobacco abuse -Recommend ongoing cessation DVT prophylaxis -SCDs for now -We will leave chemoprophylaxis to primary service Charges/Coding Visit Charges Inpatient E&M: 70511 Subs Hosp L2
[2023-04-12] MEDS: Mag Hydrox/Al Hydrox/Simeth 30 ML UDC PO (12:04)
[2023-04-12 12:09] LABS: Troponin-I HS 12 pg/mL (3.0-54.0)
[2023-04-12 12:32] VITALS: BP 125/66; PULSE 96; O2SAT 97
[2023-04-12] MEDS: Lactated Ringers 1,000 ML 60 ML IV (12:54)
--- NOTE | 2023-04-12 17:00 | RAD_ITS ---
STUDY: X-RAY - ABDOMEN/PELVIS REASON FOR EXAM: Female, 72 years old. N/V post small bowel resection TECHNIQUE: Single AP view of the abdomen / pelvis. COMPARISON: 04/08/2023 FINDINGS: Normal visualized lung bases. Diffusely dilated small bowel measuring up to 4.9 cm in diameter with colonic gas fecal residue noted. The visualized liver, spleen and kidneys are grossly normal in size and morphology. Surgical francisco overlie the lower abdomen. There are diffuse degenerative changes of the visualized lumbar spine. RAD/Abdomen Single View (Portable) IMPRESSION: Partial small bowel obstruction versus postoperative ileus. Electronically Signed: Agustín Robertson (Brooks), at 17:25 EDT ,
[2023-04-12] MEDS: Famotidine 200 MG/20 ML MDV 20 MG in 0.9% Normal Saline (Pres. free 8 ML 300 MG IV (17:44)
--- NOTE | 2023-04-12 22:00 | NURSING ---
During shift change pt was known to be having n/v with green/brown bile emesis, surgeon implementation project manager Dr. Posada was made aware of pts situation and most recent KUB warranted for Nasogastric tube reinsertion. This RN was unsuccessful with NG tube insertion, another RN was able to place NG tube. Pt had projectile emesis during NG tube insertion and did not tolerate insertion well d/t n/v. NG tube placement verified with KUB and 900ml of green/brown bile was pulled from NG tube after insertion.
--- NOTE | 2023-04-12 22:00 | RAD_ITS ---
EXAM: XR ABDOMEN, 1 VIEW CLINICAL INDICATION: NG tube insertion TECHNIQUE: Frontal supine view of the abdomen/pelvis. COMPARISON: 04/12/2023 at 1704 hours FINDINGS: LOWER THORAX: No acute pathology. GASTROINTESTINAL TRACT: Unremarkable. Non-obstructive. No bowel or stomach distention. ORGANS: Unremarkable as visualized. No organomegaly. No abnormal calcifications. BONES/JOINTS: No acute pathology. SOFT TISSUES: No acute pathology. TUBES, LINES AND DEVICES: Nasogastric tube is in place with the distal tip in the proximal to mid stomach. There are persistent dilated gas-filled loops of small bowel. RAD/Abdomen Single View (Portable) IMPRESSION: 1. Nasogastric tube in good position. 2. No change in the bowel gas pattern. Electronically Signed: See Mckay MD at 22:25 EDT ,
[2023-04-13 03:00] VITALS: BP 131/66; PULSE 88; RESP 15; TEMP 36.6; O2SAT 99
[2023-04-13 03:51] VITALS: BMI 20.6
[2023-04-13] MEDS: Lactated Ringers 1,000 ML 60 ML IV (06:02)
[2023-04-13 06:35] LABS: Absolute Lymphocyte Count 0.88 X10^3/uL (0.83-4.51); Absolute Neutrophil Count 2.6 X10^3/uL (2.0-7.7); Basophil# 0.09 X10^3/uL; Basophil% 1.9 % (0-1); Eosinophil# 0.04 X10^3/uL; Eosinophils% 0.9 % (0-5); Hematocrit 36.2 % (37-47); Hemoglobin 11.9 g/dL (12.0-15.0); Lymphocyte # 0.88 X10^3/ul (0.83-4.51); Lymphocyte % 18.9 % (19-41); Mean Corp Hgb Conc 32.9 g/dL (32-36); Mean Corpuscular Hgb 31.2 pg (27.0-32.0); Mean Corpuscular Volume 94.8 fL (81-99); Mean Platelet Vol. 10.6 fl (6.2-12.0); Monocyte# 1.06 X10^3/uL; Monocyte% 22.7 % (0-10); NRBC Flagged by Analyzer 0 % (0-5); Neutrophil # 2.56 X10^3/uL (2.7-7.7); POSITIVE MORPHOLOGY YES; Platelet Count 227 K/mm3 (150-450); RBC Distribution Width CV 14.3 % (11.6-14.6); RBC Distribution Width SD 50.2 fl (35.1-43.9); Red Blood Count 3.82 M/mm3 (4.2-5.4); White Blood Count 4.7 K/mm3 (4.4-11.0)
[2023-04-13 06:47] LABS: Differential Indicated SCAN CRITERIA MET
[2023-04-13 07:22] LABS: ALB/GLOB Ratio 0.6 RATIO (0.9-2.4); AST(SGOT) 20 U/L (15-37); Alanine Aminotransfer ALT/SGPT 16 U/L (13-56); Albumin, Serum 1.9 g/dL (3.2-5.0); Alkaline Phosphatase 74 U/L (45-117); Anion Gap 10 (5-15); BUN 21 mg/dL (7-18); BUN/Creat Ratio 30.4 RATIO (10-20); Calcium,Total 8.7 mg/dL (8.5-10.1); Chloride 112 mmol/L (98-107); Creatinine, Serum 0.69 mg/dL (0.55-1.02); Differential Comment SCANNED; EST Glomerular Filtration Rate 88 mL/min (>60); Est Glom Filt Rate - Afr Amer 107 mL/min (>60); Estimated Creatinine Clearance 42.62 ml/min; Glucose 93 mg/dL (74-106); Magnesium 1.9 mg/dL (1.6-2.6); Phosphorus 1.7 mg/dL (2.5-4.9); Potassium 3.5 mmol/L (3.5-5.1); Protein, Total 4.9 g/dL (6.4-8.2); Sodium Level 143 mmol/L (136-145); Toxic Granulation 1+
[2023-04-13 08:13] VITALS: BP 129/69; PULSE 95; RESP 16; TEMP 36.6; O2SAT 95
[2023-04-13] MEDS: 0.9% Saline Lock 10 ML Syringe IV (09:01)
--- NOTE | 2023-04-13 09:57 | PCM.PN.SRG ---
Subjective Subjective Patient seen and examined during AM rounds. She is found sitting upright in bed. She states that she feels much better than yesterday and is no longer experiencing the reflux or nausea. She denies any passage of flatus today. She denies any significant abdominal pain. Objective Data Objective Data Vital Signs: Vital Signs Temp Pulse Resp BP Pulse Ox O2 Del Method O2 Flow Rate 97.8 F 95 16 129/69 H 95 Room Air 2 04/13/23 08:13 04/13/23 08:13 04/13/23 08:13 04/13/23 08:13 04/13/23 08:13 04/13/23 08:18 04/09/23 04:00 Oxygen Flow Rate (L/min) 2 Oxygen Delivery Method Room Air Weight: 120 lb 13.013 oz Body Mass Index (BMI) 20.6 Intake & Output: Intake and Output for Last 24 Hours 04/11/23 04/12/23 04/13/23 23:59 23:59 23:59 Intake Total 2875 / 2875 3972 / 3972 1210 / 1210 Output Total 450 / 700 1500 / 1500 675 / 675 Balance 2425 / 2175 2472 / 2472 535 / 535 Medical Nutrition Assessment Dietitian: Malnutrition Criteria Met Start: 04/09/23 11:25 Freq: Status: Active Protocol: Document 04/09/23 11:26 RMA (Rec: 04/09/23 11:37 RMA [id number]) Nutrition Malnutrition Evidence of Malnutrition Exists Yes Malnutrition (severe): Acute Illness/Injury Evidenced By Suboptimal Energy Intake ( Severe),Weight Loss (Severe), Physical Changes (Moderate) Intake Problem Inadequate Oral Intake Etiology related to altered GI function /SBO Signs/Symptoms as evidenced by NPO and NG to suction Status Active Problem Clinical Problem Acute Disease or Injury Related Malnutrition Etiology Severe protein-calorie malnutrition in the context of acute illness related to altered GI function and inadequate oral intake Signs/Symptoms as evidenced by ~8% weight loss x past 1-2 months, BMI 18 .5, currently NPO, PO meeting less than 50% estimated nutrition needs x past 1 month and moderate muscle wasting and fat depletion in the face, clavicle, arms and legs Status Active Problem Recommendation Dietitian Recommendations/Changes Recommend advance PO as medically able to Transitional diet and as tolerated to goal of Regular diet. Will add Ensure Clear PO as able tolerate PO nutrition and advance diet. Consider parenteral nutrition support if long-term NPO expected greater than 3-4 days to prevent further energy/ protein depletion. Lab / Micro Data 04/13/23 06:15 04/13/23 06:15 Labs: Laboratory Results - last 24 hr 04/12/23 05:55: Absolute Neuts (auto) 2.3, Absolute Lymphs (auto) 0.60 L, Total Counted 100, Neutrophils % (Manual) 52, Band Neutrophils % 3, Lymphocytes % (Manual) 14 L, Monocytes % (Manual) 18 H, Eosinophils % (Manual) 2, Metamyelocytes % 6 H, Myelocytes % 5 H, Diff Path Review May , Platelet Estimate ADEQUATE, RBC Morphology NORM C+C 04/12/23 10:45: Vancomycin Trough 2.0 L 04/12/23 11:41: Troponin I High Sens 12 04/13/23 06:15: WBC 4.7, RBC 3.82 L, Hgb 11.9 L, Hct 36.2 L, MCV 94.8, MCH 31.2, MCHC 32.9, RDW Std Deviation 50.2 H, RDW Coeff of Loyda 14.3, Plt Count 227, MPV 10.6, Immature Gran % (Auto) 0.600, Neut % (Auto) 55.0, Lymph % (Auto) 18.9 L, [place] % (Auto) 22.7 H, Eos % (Auto) 0.9, Baso % (Auto) 1.9 H, Absolute Neuts (auto) 2.6, Absolute Lymphs (auto) 0.88, Nucleated RBC % 0, Differential Comment SCANNED, Toxic Granulation 1+, Sodium 143, Potassium 3.5, Chloride 112 H, Carbon Dioxide 21.0, Anion Gap 10, BUN 21 H, Creatinine 0.69, Estim Creat Clear Calc 42.62, Est GFR (MDRD) Af Amer 107, Est GFR (MDRD) Non-Af 88, BUN/Creatinine Ratio 30.4 H, Glucose 93, Calcium 8.7, Phosphorus 1.7 L, Magnesium 1.9, Total Bilirubin 0.40, AST 20, ALT 16, Alkaline Phosphatase 74, Total Protein 4.9 L, Albumin 1.9 L, Globulin 3.0, Albumin/Globulin Ratio 0.6 L Micro: Microbiology 04/09/23 06:00 Blood Culture (Wb) - Left Forearm Blood Culture - Preliminary No growth in 48 hours. 04/09/23 05:45 Blood Culture (Wb) - Line Draw Blood Culture - Preliminary No growth in 48 hours. 04/08/23 19:45 Blood Culture (Wb) - Anticubital Left Blood Culture - Preliminary No growth in 48 hours. 04/08/23 19:15 Blood Culture (Wb) - Anticubital Left Blood Culture - Preliminary No growth in 48 hours. 04/08/23 19:40 Urine, Catheterized Urine Culture - Final Escherichia coli Radiography Diagnostic Testing: Radiology Impression KUB X-Ray 04/12/23 17:00 IMPRESSION: Partial small bowel obstruction versus postoperative ileus. Electronically Signed: Agustín Robertson (Brooks), at 17:25 EDT , KUB X-Ray 04/12/23 22:00 IMPRESSION: 1. Nasogastric tube in good position. 2. No change in the bowel gas pattern. Electronically Signed: See Mckay MD at 22:25 EDT , Physical Exam Const oriented x3 Resp normal respiratory effort GI GI Narrative: Mildly distended, stable laparotomy incision without erythema or drainage. Nontender to palpation. Nasogastric tube is investigated due to family concerns about leakage and found to have some occlusion of the sump line. Once this is flushed, patient's tube appears to be working appropriately. Assessment & Plan Assessment/Plan (1) S/P small bowel resection: PLAN: Patient is postoperative day 4 from exploratory laparotomy with small bowel resection for strangulated right inguinal hernia. She required replacement of her nasogastric tube yesterday after developing significant nausea and vomiting. KUB yesterday showed evidence of postoperative ileus with some gas filling of the colon. Patient much more comfortable today, but denies any ongoing flatus or bowel function. Her exam is overall reassuring with no wound concerns. Given this development of nausea and vomiting, patient must remain n.p.o. with IV fluid support. Oral medications have been held or transition to an IV route. Today dsouza day 7 since she has had substantial nutrition, so tomorrow she should be evaluated for possible initiation of TPN if bowel function has not yet returned. Charges/Coding Visit Charges Inpatient E&M: 77667 Subs Hosp L2
[2023-04-13 13:11] VITALS: BP 132/70; PULSE 91; RESP 16; TEMP 36.9; O2SAT 96
--- NOTE | 2023-04-13 14:32 | PCM.PN.HOSP ---
Reason for Visit Reason for Visit: Abdominal pain Subjective Subjective Patient developed worsening dyspepsia and abdominal distention. NG tube replaced and 1 L removed from gastric contents. Feels okay otherwise at this time. Objective Data Objective Data Vital Signs: Vital Signs Temp Pulse Resp BP Pulse Ox O2 Del Method O2 Flow Rate 98.5 F 91 16 132/70 H 96 Room Air 2 04/13/23 13:11 04/13/23 13:11 04/13/23 13:11 04/13/23 13:11 04/13/23 13:11 04/13/23 13:37 04/09/23 04:00 Oxygen Flow Rate (L/min) 2 Oxygen Delivery Method Room Air Weight: 54.8 kg Body Mass Index (BMI) 20.6 Intake & Output: Intake and Output for Last 24 Hours 04/11/23 04/12/23 04/13/23 23:59 23:59 23:59 Intake Total 2875 / 2875 3972 / 3972 1240 / 1240 Output Total 450 / 700 1500 / 1500 1025 / 1025 Balance 2425 / 2175 2472 / 2472 215 / 215 Medical Nutrition Assessment Dietitian: Malnutrition Criteria Met Start: 04/09/23 11:25 Freq: Status: Active Protocol: Document 04/09/23 11:26 RMA (Rec: 04/09/23 11:37 RMA [id number]) Nutrition Malnutrition Evidence of Malnutrition Exists Yes Malnutrition (severe): Acute Illness/Injury Evidenced By Suboptimal Energy Intake ( Severe),Weight Loss (Severe), Physical Changes (Moderate) Intake Problem Inadequate Oral Intake Etiology related to altered GI function /SBO Signs/Symptoms as evidenced by NPO and NG to suction Status Active Problem Clinical Problem Acute Disease or Injury Related Malnutrition Etiology Severe protein-calorie malnutrition in the context of acute illness related to altered GI function and inadequate oral intake Signs/Symptoms as evidenced by ~8% weight loss x past 1-2 months, BMI 18 .5, currently NPO, PO meeting less than 50% estimated nutrition needs x past 1 month and moderate muscle wasting and fat depletion in the face, clavicle, arms and legs Status Active Problem Recommendation Dietitian Recommendations/Changes Recommend advance PO as medically able to Transitional diet and as tolerated to goal of Regular diet. Will add Ensure Clear PO as able tolerate PO nutrition and advance diet. Consider parenteral nutrition support if long-term NPO expected greater than 3-4 days to prevent further energy/ protein depletion. Lab / Micro Data 04/13/23 06:15 04/13/23 06:15 Labs: Laboratory Results - last 24 hr 04/13/23 06:15: WBC 4.7, RBC 3.82 L, Hgb 11.9 L, Hct 36.2 L, MCV 94.8, MCH 31.2, MCHC 32.9, RDW Std Deviation 50.2 H, RDW Coeff of Loyda 14.3, Plt Count 227, MPV 10.6, Immature Gran % (Auto) 0.600, Neut % (Auto) 55.0, Lymph % (Auto) 18.9 L, [place] % (Auto) 22.7 H, Eos % (Auto) 0.9, Baso % (Auto) 1.9 H, Absolute Neuts (auto) 2.6, Absolute Lymphs (auto) 0.88, Nucleated RBC % 0, Differential Comment SCANNED, Toxic Granulation 1+, Sodium 143, Potassium 3.5, Chloride 112 H, Carbon Dioxide 21.0, Anion Gap 10, BUN 21 H, Creatinine 0.69, Estim Creat Clear Calc 42.62, Est GFR (MDRD) Af Amer 107, Est GFR (MDRD) Non-Af 88, BUN/Creatinine Ratio 30.4 H, Glucose 93, Calcium 8.7, Phosphorus 1.7 L, Magnesium 1.9, Total Bilirubin 0.40, AST 20, ALT 16, Alkaline Phosphatase 74, Total Protein 4.9 L, Albumin 1.9 L, Globulin 3.0, Albumin/Globulin Ratio 0.6 L Micro: Microbiology 04/09/23 06:00 Blood Culture (Wb) - Left Forearm Blood Culture - Preliminary No growth in 48 hours. 04/09/23 05:45 Blood Culture (Wb) - Line Draw Blood Culture - Preliminary No growth in 48 hours. 04/08/23 19:45 Blood Culture (Wb) - Anticubital Left Blood Culture - Preliminary No growth in 48 hours. 04/08/23 19:15 Blood Culture (Wb) - Anticubital Left Blood Culture - Preliminary No growth in 48 hours. 04/08/23 19:40 Urine, Catheterized Urine Culture - Final Escherichia coli Radiography Diagnostic Testing: Radiology Impression KUB X-Ray 04/12/23 17:00 IMPRESSION: Partial small bowel obstruction versus postoperative ileus. Electronically Signed: Agustín Robertson (Brooks), at 17:25 EDT , KUB X-Ray 04/12/23 22:00 IMPRESSION: 1. Nasogastric tube in good position. 2. No change in the bowel gas pattern. Electronically Signed: See Mckay MD at 22:25 EDT , Physical Exam Const alert, oriented x3 and no apparent distress; Negative for average body habitus or healthy appearing Constitutional Narrative: Thin, elderly, white female, sitting up in bed, appears comfortable, nontoxic, family at bedside HEENT head/scalp atraumatic and moist oral mucous membranes HEENT Narrative: NG tube replaced right nares, edentulous, Mallampati 2, no thrush Resp normal respiratory effort, no retractions, no use of accessory muscles and clear to auscultation bilaterally Resp Narrative: Diminished diffusely, few crackles in bilateral bases that improved with deep breathing-suspected atelectasis Auscultation: Negative for rales, rhonchi or wheezes Cardio regular rate, regular rhythm, S1 normal heart sound, S2 normal heart sound, no murmurs, no rub, no gallops and no clicks GI GI Narrative: Abdomen remains soft, very minimal tenderness, incision remains clean dry and intact, bowel sounds are hypoactive but present, no distention Extremity no clubbing, cyanosis or edema Extremity Narrative: Decreased lean muscle mass Neuro oriented x3, moves all extremities and no focal motor deficits Speech: speech normal Psych affect normal Psych Narrative: Very pleasant, interacts appropriately Assessment & Plan Assessment/Plan (1) Right inguinal hernia: (2) Septic shock: (3) Elevated troponin: (4) Lactic acidosis: (5) Leukocytosis: (6) DIONICIO (acute kidney injury): (7) Hyponatremia: (8) Hyperchloremia: PLAN: Plan Septic shock secondary to incarcerated small bowel secondary to right inguinal hernia -Septic shock resolved -Postop day 5 small bowel resection -Antibiotics discontinued on 04/11/2023 -Blood cultures are negative -Continue sips and chips -Await return of bowel function -General surgery is following Postoperative ileus -N.p.o. except for sips and chips -NG tube placed last evening -Continue IV hydration at 60 cc/h -Antiemetics as needed -May need to initiate TPN if her ileus does not resolve soon Hypophosphatemia -IV Phos replacement today--> replaced with K-Phos as potassium level is only 3.5 -Recheck a.m. Phos level Troponin elevation -Peak troponin was 128 and has trended down since then -Likely related to type II NSTEMI related to demand ischemia from septic shock -Echocardiogram showed an EF of 60% with no wall motion abnormalities and no valvular disorder -Repeat EKG was unremarkable and troponin was normalized Metabolic acidosis secondary to hyperchloremia -Resolved COPD -Previous PFTs done on 03/06/2015 showed mild large airway obstruction with ventilatory defect and no response to bronchodilators -History of tobacco abuse -As needed nebulizers Osteoporosis -Restart Boniva at discharge Hypothyroidism -Restart levothyroxine when bowel function returns or dose IV weekly -Day 4 without replacement GERD -Continue IV Protonix 40 mg daily Hyperlipidemia -Restart rosuvastatin once p.o. intake is permitted History of tobacco abuse -Recommend ongoing cessation DVT prophylaxis -SCDs for now -Discussed chemoprophylaxis with surgery and they were agreeable with initiation so we will start Lovenox subcu 40 daily Charges/Coding Visit Charges Inpatient E&M: 07905 Subs Hosp L2
[2023-04-13] MEDS: NYSTATIN 500,000 UNIT/5 ML UDC 500000 UNIT PO ×2 (17:15→21:28)
[2023-04-13] MEDS: Enoxaparin 40 MG/0.4 ML Syringe SC (17:15)
[2023-04-13 20:00] VITALS: BP 123/63; PULSE 88; RESP 16; TEMP 36.1; O2SAT 97
[2023-04-13] MEDS: Menthol/Lanolin/Calamine/Znox 113 GM Tube 1 APPLIC TOPICAL (21:28)
[2023-04-14 03:18] VITALS: BP 123/63; PULSE 75; RESP 14; TEMP 36.4; O2SAT 96
[2023-04-14] MEDS: Lactated Ringers 1,000 ML 60 ML IV (04:14)
[2023-04-14 06:50] LABS: Absolute Neutrophil Count 3.7 X10^3/uL (2.0-7.7); Eosinophils% 1.6 % (0-5); Hematocrit 35.9 % (37-47); Hemoglobin 11.9 g/dL (12.0-15.0); Lymphocyte % 19.7 % (19-41); Mean Corp Hgb Conc 33.1 g/dL (32-36); Mean Corpuscular Hgb 31.2 pg (27.0-32.0); Mean Corpuscular Volume 94.2 fL (81-99); Mean Platelet Vol. 10.3 fl (6.2-12.0); Monocyte# 1.04 X10^3/uL; NRBC Flagged by Analyzer 0 % (0-5); Neutrophil # 3.72 X10^3/uL (2.7-7.7); POSITIVE MORPHOLOGY YES; Platelet Count 270 K/mm3 (150-450); RBC Distribution Width CV 14.3 % (11.6-14.6); RBC Distribution Width SD 49.5 fl (35.1-43.9); Red Blood Count 3.81 M/mm3 (4.2-5.4); White Blood Count 6.1 K/mm3 (4.4-11.0)
[2023-04-14 07:00] LABS: International Normalized Ratio 1.8; Prothrombin Time (Protime)PT. 21.3 SECONDS (11.7-14.9)
[2023-04-14 07:05] LABS: Differential Indicated SCAN CRITERIA MET
--- NOTE | 2023-04-14 07:17 | RAD_ITS ---
EXAM: XR ABDOMEN, 1 VIEW CLINICAL INDICATION: ileus TECHNIQUE: Frontal supine view of the abdomen/pelvis. COMPARISON: XR Abdomen dated 04/12/2023 FINDINGS: GASTROINTESTINAL TRACT: Persistent distention of the small bowel which may represent postop ileus or distal small bowel obstruction. ORGANS: No organomegaly. BONES/JOINTS: No acute abnormality. TUBES, LINES AND DEVICES: Enteric tube extends into the stomach. RAD/Abdomen Single View (Portable) IMPRESSION: Persistent small bowel distention. Electronically Signed: Stone Floyd MD at 8:17 EDT ,
[2023-04-14 07:22] LABS: Anion Gap 7 (5-15); BUN 18 mg/dL (7-18); BUN/Creat Ratio 37.7 RATIO (10-20); Calcium,Total 8.3 mg/dL (8.5-10.1); Chloride 111 mmol/L (98-107); Creatinine, Serum 0.48 mg/dL (0.55-1.02); EST Glomerular Filtration Rate 135 mL/min (>60); Est Glom Filt Rate - Afr Amer 163 mL/min (>60); Estimated Creatinine Clearance 41.61 ml/min; Glucose 80 mg/dL (74-106); Potassium 3.3 mmol/L (3.5-5.1); Sodium Level 143 mmol/L (136-145)
[2023-04-14 07:33] VITALS: BP 130/70; PULSE 89; RESP 16; TEMP 36.7; O2SAT 94
[2023-04-14] MEDS: fentaNYL 100 MCG/2 ML Ampul 50 MCG IV ×2 (07:38→16:03)
--- NOTE | 2023-04-14 09:19 | CT_ITS ---
STUDY: CT ABDOMEN AND PELVIS WITH CONTRAST REASON FOR EXAM: Female, 72 years old. Dilation after resection -- PO and IV contrast RADIATION DOSAGE (If Supplied By Facility): CTDIvol = ( 11.61 ) mGy, DLP = ( 326.95 ) mGycm TECHNIQUE: Transaxial images were obtained from the dome of the diaphragm to the symphysis pubis with oral contrast. Oral and amp;amp; IV Gastrografin and amp;amp; 100mL Isovue-300 was administered. Sagittal and coronal images were reconstructed. Individualized dose optimization techniques were used for this CT. COMPARISON: None. FINDINGS: Small bilateral pleural effusions right slightly greater than left with bibasilar atelectasis. Coronary artery calcification. Small amount of intraperitoneal Normal liver. Gallbladder is filled with hyperdense material suggestive of sludge. Normal spleen. Normal pancreas. Normal bilateral adrenal glands. Normal right kidney. Normal left kidney. Nasogastric tube is seen in the esophagus and stomach. Distended fluid-filled and contrast-filled small bowel loops down to the level of the anastomosis in the lower pelvis. Small amount of gas and fecal material are seen in the colon. The appendix is visualized and appears normal. There is diffuse atherosclerotic calcification of the abdominal aorta, without a demonstrated aneurysm. Normal inferior vena cava. Normal retroperitoneum. Normal urinary bladder. Diffuse subcutaneous thickening. There are mild degenerative changes of the visualized lumbar spine. CT/Abdomen/Pelvis WITH Contrast IMPRESSION: Fluid filled and contrast filled small bowel loops down to the level of the anastomosis in the lower pelvis. Small amount of gas and fecal material seen in the colon. Small amount of free air is seen within the right upper quadrant. Most likely postoperative in nature. Small bilateral pleural effusions slightly worse on the right side with basilar atelectasis. Electronically Signed: Blane De La Rosa MD at 12:45 EDT ,
[2023-04-14] MEDS: Enoxaparin 40 MG/0.4 ML Syringe SC (09:29)
[2023-04-14] MEDS: NYSTATIN 500,000 UNIT/5 ML UDC 500000 UNIT PO ×3 (09:29→21:07)
--- NOTE | 2023-04-14 10:40 | PN.SURG_ITS ---
Subjective Subjective Patient reports that she had some vomiting 2 nights ago. Currently she is only having abdominal pain in her left lower quadrant. Objective Data Objective Data Vital Signs: Vital Signs Temp Pulse Resp BP Pulse Ox O2 Del Method O2 Flow Rate 98.0 F 89 16 130/70 H 94 Room Air 2 04/14/23 07:33 04/14/23 07:33 04/14/23 07:33 04/14/23 07:33 04/14/23 07:33 04/14/23 08:20 04/09/23 04:00 Oxygen Flow Rate (L/min) 2 Oxygen Delivery Method Room Air Weight: 117 lb 11.629 oz Body Mass Index (BMI) 20.0 Intake & Output: Intake and Output for Last 24 Hours 04/12/23 04/13/23 04/14/23 23:59 23:59 23:59 Intake Total 3972 / 3972 1556.9 / 1556.9 926 / 926 Output Total 1500 / 1500 1725 / 1725 600 / 600 Balance 2472 / 2472 -168.1 / -168.1 326 / 326 Medical Nutrition Assessment Dietitian: Malnutrition Criteria Met Start: 04/09/23 11:25 Freq: Status: Active Protocol: Document 04/09/23 11:26 RMA (Rec: 04/09/23 11:37 RMA [id number]) Nutrition Malnutrition Evidence of Malnutrition Exists Yes Malnutrition (severe): Acute Illness/Injury Evidenced By Suboptimal Energy Intake ( Severe),Weight Loss (Severe), Physical Changes (Moderate) Intake Problem Inadequate Oral Intake Etiology related to altered GI function /SBO Signs/Symptoms as evidenced by NPO and NG to suction Status Active Problem Clinical Problem Acute Disease or Injury Related Malnutrition Etiology Severe protein-calorie malnutrition in the context of acute illness related to altered GI function and inadequate oral intake Signs/Symptoms as evidenced by ~8% weight loss x past 1-2 months, BMI 18 .5, currently NPO, PO meeting less than 50% estimated nutrition needs x past 1 month and moderate muscle wasting and fat depletion in the face, clavicle, arms and legs Status Active Problem Recommendation Dietitian Recommendations/Changes Recommend advance PO as medically able to Transitional diet and as tolerated to goal of Regular diet. Will add Ensure Clear PO as able tolerate PO nutrition and advance diet. Consider parenteral nutrition support if long-term NPO expected greater than 3-4 days to prevent further energy/ protein depletion. Lab / Micro Data 04/14/23 06:30 04/14/23 06:30 Labs: Laboratory Results - last 24 hr 04/14/23 06:29: PT 21.3 H, INR 1.8 04/14/23 06:30: WBC 6.1, RBC 3.81 L, Hgb 11.9 L, Hct 35.9 L, MCV 94.2, MCH 31.2, MCHC 33.1, RDW Std Deviation 49.5 H, RDW Coeff of Loyda 14.3, Plt Count 270, MPV 10.3, Immature Gran % (Auto) 0.700, Neut % (Auto) 61.0, Lymph % (Auto) 19.7, [place] % (Auto) 17.0 H, Eos % (Auto) 1.6, Baso % (Auto) 0.0, Absolute Neuts (auto) 3.7, Absolute Lymphs (auto) 1.20, Nucleated RBC % 0, Sodium 143, Potassium 3.3 L , Chloride 111 H, Carbon Dioxide 25.0, Anion Gap 7, BUN 18, Creatinine 0.48 L, Estim Creat Clear Calc 41.61, Est GFR (MDRD) Af Amer 163, Est GFR (MDRD) Non-Af 135, BUN/Creatinine Ratio 37.7 H, Glucose 80, Calcium 8.3 L Micro: Microbiology 04/08/23 19:45 Blood Culture (Wb) - Anticubital Left Blood Culture - Final No growth in 5 days. 04/08/23 19:15 Blood Culture (Wb) - Anticubital Left Blood Culture - Final No growth in 5 days. 04/09/23 05:45 Blood Culture (Wb) - Line Draw Blood Culture - Final No growth in 5 days. 04/09/23 06:00 Blood Culture (Wb) - Left Forearm Blood Culture - Final No growth in 5 days. 04/08/23 19:40 Urine, Catheterized Urine Culture - Final Escherichia coli Radiography Diagnostic Testing: Radiology Impression KUB X-Ray 04/14/23 07:17 IMPRESSION: Persistent small bowel distention. Electronically Signed: Stone Floyd MD at 8:17 EDT , Physical Exam Const oriented x3 and no apparent distress Resp normal respiratory effort GI soft to palpation Palpation: tender LLQ Assessment & Plan Assessment/Plan (1) S/P small bowel resection: PLAN: The patient had to have an NG placed over the weekend due to vomiting. KUB this morning shows continued distention of the small bowel. I am ordering a CT scan with oral contrast. Domingo Johnson MD Pager: [facility] [address] [place] [id number], [address] [place] [address] Office:
[2023-04-14 13:48] VITALS: BP 139/74; PULSE 96; RESP 18; TEMP 36.3; O2SAT 97
--- NOTE | 2023-04-14 16:04 | PCM.PN.HOSP ---
Reason for Visit Reason for Visit: Diagnoses Sepsis, unspecified organism (04/08/23) Elevated white blood cell count, unspecified (04/08/23) Hypo-osmolality and hyponatremia (04/08/23) Acidosis, unspecified (04/08/23) Other disorders of electrolyte and fluid balance, not elsewhere classified (04/08/23) Unilateral inguinal hernia, without obstruction or gangrene, not specified as recurrent (04/08/23) Acute kidney failure, unspecified (04/08/23) Severe sepsis without septic shock (04/08/23) Severe sepsis with septic shock (04/08/23) Other specified abnormalities of plasma proteins (04/08/23) Acquired absence of other specified parts of digestive tract (04/08/23) Subjective Subjective Planes of left arm swelling after an IV infiltrated. Objective Data Objective Data Vital Signs: Vital Signs Temp Pulse Resp BP Pulse Ox O2 Del Method O2 Flow Rate 36.3 C L 96 18 139/74 H 97 Room Air 2 04/14/23 13:48 04/14/23 13:48 04/14/23 13:48 04/14/23 13:48 04/14/23 13:48 04/14/23 13:48 04/09/23 04:00 Oxygen Flow Rate (L/min) 2 Oxygen Delivery Method Room Air Weight: 53.4 kg Body Mass Index (BMI) 20.0 Intake & Output: Intake and Output for Last 24 Hours 04/12/23 04/13/23 04/14/23 23:59 23:59 23:59 Intake Total 3972 / 3972 1556.9 / 1556.9 1468 / 1468 Output Total 1500 / 1500 1725 / 1725 850 / 850 Balance 2472 / 2472 -168.1 / -168.1 618 / 618 Medical Nutrition Assessment Dietitian: Malnutrition Criteria Met Start: 04/09/23 11:25 Freq: Status: Active Protocol: Document 04/14/23 11:28 RMA (Rec: 04/14/23 11:28 RMA [id number]) Nutrition Malnutrition Evidence of Malnutrition Exists Yes Malnutrition (severe): Acute Illness/Injury Evidenced By Suboptimal Energy Intake ( Severe),Weight Loss (Severe), Physical Changes (Moderate) Intake Problem Inadequate Oral Intake Etiology related to altered GI function /SBO; post-op ileus Signs/Symptoms as evidenced by extended NPO x day 6-7 with NG to suction Status Active Problem Clinical Problem Acute Disease or Injury Related Malnutrition Etiology Severe protein-calorie malnutrition in the context of acute illness related to altered GI function and inadequate oral intake Signs/Symptoms as evidenced by ~8% weight loss x past 1-2 months, BMI 18 .5, extended NPO status, PO meeting less than 50% estimated nutrition needs x past 1 month and moderate muscle wasting and fat depletion in the face, clavicle, arms and legs Status Active Problem Recommendation Dietitian Recommendations/Changes Recommend parenteral nutrition support given extended NPO to prevent further energy/ protein depletion. Recommend advance PO as medically able to Transitional diet and as tolerated to goal of Regular diet. Will add Ensure Clear PO as able tolerate PO nutrition and advance diet. Lab / Micro Data 04/14/23 06:30 04/14/23 06:30 Labs: Laboratory Results - last 24 hr 04/14/23 06:29: PT 21.3 H, INR 1.8 04/14/23 06:30: WBC 6.1, RBC 3.81 L, Hgb 11.9 L, Hct 35.9 L, MCV 94.2, MCH 31.2, MCHC 33.1, RDW Std Deviation 49.5 H, RDW Coeff of Loyda 14.3, Plt Count 270, MPV 10.3, Immature Gran % (Auto) 0.700, Neut % (Auto) 61.0, Lymph % (Auto) 19.7, [place] % (Auto) 17.0 H, Eos % (Auto) 1.6, Baso % (Auto) 0.0, Absolute Neuts (auto) 3.7, Absolute Lymphs (auto) 1.20, Nucleated RBC % 0, Sodium 143, Potassium 3.3 L, Chloride 111 H, Carbon Dioxide 25.0, Anion Gap 7, BUN 18, Creatinine 0.48 L, Estim Creat Clear Calc 41.61, Est GFR (MDRD) Af Amer 163, Est GFR (MDRD) Non-Af 135, BUN/Creatinine Ratio 37.7 H, Glucose 80, Calcium 8.3 L Micro: Microbiology 04/08/23 19:45 Blood Culture (Wb) - Anticubital Left Blood Culture - Final No growth in 5 days. 04/08/23 19:15 Blood Culture (Wb) - Anticubital Left Blood Culture - Final No growth in 5 days. 04/09/23 05:45 Blood Culture (Wb) - Line Draw Blood Culture - Final No growth in 5 days. 04/09/23 06:00 Blood Culture (Wb) - Left Forearm Blood Culture - Final No growth in 5 days. 04/08/23 19:40 Urine, Catheterized Urine Culture - Final Escherichia coli Radiography Diagnostic Testing: Radiology Impression KUB X-Ray 04/14/23 07:17 IMPRESSION: Persistent small bowel distention. Electronically Signed: Stone Floyd MD at 8:17 EDT , Abdomen/Pelvis CT 04/14/23 09:19 IMPRESSION: Fluid filled and contrast filled small bowel loops down to the level of the anastomosis in the lower pelvis. Small amount of gas and fecal material seen in the colon. Small amount of free air is seen within the right upper quadrant. Most likely postoperative in nature. Small bilateral pleural effusions slightly worse on the right side with basilar atelectasis. Electronically Signed: Blane De La Rosa MD at 12:45 EDT , Physical Exam Const alert and no apparent distress HEENT HEENT Narrative: NG tube Resp normal respiratory effort, no retractions, no use of accessory muscles and clear to auscultation bilaterally Cardio regular rate, regular rhythm, S1 normal heart sound and S2 normal heart sound GI normal to inspection, nondistended, normoactive bowel sounds, soft to palpation, non-tender and non-distended Extremity Extremity Narrative: Swelling of left arm. Assessment & Plan Assessment/Plan (1) S/P small bowel resection: PLAN: Management per surgery. Patient underwent an exploratory laparotomy with small bowel resection for strangulated right inguinal hernia. Has not had any substantial nutrition since the second. CAT scan today showed fluid-filled and contrast-filled small bowel loops down to the level of the anastomosis and lower pelvis. Small amount of gas and fecal material seen in the colon. Small amount of free air seen in the right upper quadrant. (2) Left arm swelling: PLAN: Likely secondary to IV infiltrating. Cannot rule out SVT. We will check a duplex. (3) Malnutrition: QUALIFIERS: Malnutrition type: protein-calorie malnutrition Protein-calorie malnutrition severity: severe Qualified Code(s): E43 - Unspecified severe protein-calorie malnutrition PLAN: Is been since 8 days since she has had anything substantial to eat. Consult nutrition for TPN PICC line for administration of TPN (4) Septic shock: PLAN: 2/2 SBO from strangulated inguinal hernia. resolved abx d/c'd on the . (5) Elevated troponin: PLAN: likely type 2, demand from above echo showed an EF of 60% PLAN: Plan Chronic conditions: osteoporosis GERN HLP VTE prophylaxis: enoxaparin. Charges/Coding Visit Charges Inpatient E&M: 78964 [facility] Hosp L3
--- NOTE | 2023-04-14 16:11 | VDUE_ITS ---
Reason For Study: Lt Arm Swelling Right Proximal Left Proximal Right subclavian vein is spontaneous, widely Left jugular vein is spontaneous, widely patent, phasic, with no intraluminal patent, phasic, with no intraluminal echogenicity noted. echogenicity noted. Left subclavian vein is spontaneous, widely patent, phasic, with no intraluminal echogenicity noted. Left Arm Left axillary vein is spontaneous, patent, phasic, competent, compressible and demonstrates augmentation. Left brachial vein is compressible. Cephalic Vein is DILATED and NONCOMPRESSIBLE with mixed intraluminal echoes. Cephalic vein intraluminal echogenicity extends fromAC to 5cm distal to BETO at shoulder.. Left basilic vein is compressible. Left Lower Arm Left radial vein is compressible. Left ulnar vein is compressible. Patient Safety Preliminary given to PCU engraver apprentice decorative. VL/Venous Duplex US, Unilateral Interpretation Summary Acute superficial vein thrombosis identified in the left cephalic vein. Deep veins of the left upper extremity are patent and compressible segmentally. There is no evidence of deep vein thrombosis. Ordering Physician: Federico Lu Performed By: Aly Peña, RVT ???
[2023-04-14 17:59] LABS: Triglycerides 115 mg/dL
[2023-04-14] MEDS: TPN - Clinimix E 8%-14% Soln 2,000 ML with Multivitamins 10 ML, Trace Elements 1 ML, Fo... 42 ML IV (21:03)
[2023-04-14] MEDS: Menthol/Lanolin/Calamine/Znox 113 GM Tube 1 APPLIC TOPICAL (21:17)
[2023-04-14 21:19] VITALS: BP 148/88; PULSE 92; RESP 16; TEMP 37.1; O2SAT 95
[2023-04-14 23:08] LABS: Bedside Glucose 135 mg/dL (74-106)
[2023-04-15 04:06] VITALS: BP 155/72; PULSE 99; RESP 16; TEMP 37.1; O2SAT 95
[2023-04-15 04:33] VITALS: BMI 20.1
--- NOTE | 2023-04-15 05:55 | RAD_ITS ---
EXAM: XR ABDOMEN, 2 VIEWS CLINICAL INDICATION: ileus TECHNIQUE: Frontal view of the abdomen/pelvis with upright view of the abdomen. COMPARISON: KUB from 04/14/2023 FINDINGS: LOWER THORAX: No acute pathology. INTRAPERITONEAL SPACE: Free air under the diaphragm consistent with the recent CT exam. GASTROINTESTINAL TRACT: Slight decreased distention of the small bowel loops since the previous exam. Some contrast is present in the colon. ORGANS: Unremarkable as visualized. No organomegaly. No abnormal calcifications. BONES/JOINTS: No acute pathology. SOFT TISSUES: Midline abdominal staple line. RAD/Abd Decub and/or Erect(Portabl IMPRESSION: 1. Free air under the diaphragm consistent with the recent CT exam. 2. Slight decreased distention of the small bowel loops since the previous exam. Electronically Signed: Richard Harley MD at 7:24 EDT ,
[2023-04-15 05:57] LABS: Bedside Glucose 146 mg/dL (74-106)
[2023-04-15] MEDS: Lactated Ringers 1,000 ML 60 ML IV ×2 (06:15→23:27)
[2023-04-15 06:45] LABS: Absolute Lymphocyte Count 0.82 X10^3/uL (0.83-4.51); Basophil# 0.07 X10^3/uL; Basophil% 1.2 % (0-1); Differential Indicated SCAN CRITERIA MET; Eosinophil# 0.11 X10^3/uL; Eosinophils% 1.8 % (0-5); Hematocrit 31.7 % (37-47); Hemoglobin 10.7 g/dL (12.0-15.0); Lymphocyte # 0.82 X10^3/ul (0.83-4.51); Lymphocyte % 13.8 % (19-41); Mean Corp Hgb Conc 33.8 g/dL (32-36); Mean Corpuscular Hgb 31.8 pg (27.0-32.0); Mean Corpuscular Volume 94.1 fL (81-99); Monocyte% 15.1 % (0-10); NRBC Flagged by Analyzer 0 % (0-5); Neutrophil # 3.97 X10^3/uL (2.7-7.7); Neutrophil % 66.6 % (47-70); POSITIVE MORPHOLOGY YES; Platelet Count 268 K/mm3 (150-450); RBC Distribution Width CV 14.5 % (11.6-14.6); RBC Distribution Width SD 49.8 fl (35.1-43.9); Red Blood Count 3.37 M/mm3 (4.2-5.4)
[2023-04-15 07:16] LABS: Anion Gap 4 (5-15); BUN 16 mg/dL (7-18); BUN/Creat Ratio 34.9 RATIO (10-20); Calcium,Total 7.5 mg/dL (8.5-10.1); Chloride 109 mmol/L (98-107); Creatinine, Serum 0.46 mg/dL (0.55-1.02); EST Glomerular Filtration Rate 142 mL/min (>60); Est Glom Filt Rate - Afr Amer 171 mL/min (>60); Estimated Creatinine Clearance 41.45 ml/min; Glucose 165 mg/dL (74-106); Magnesium 1.7 mg/dL (1.6-2.6); Potassium 3.3 mmol/L (3.5-5.1); Sodium Level 142 mmol/L (136-145)
--- NOTE | 2023-04-15 08:06 | PN.HOSP_ITS ---
Reason for Visit Reason for Visit: Diagnoses Sepsis, unspecified organism (04/08/23) Elevated white blood cell count, unspecified (04/08/23) Unspecified severe protein-calorie malnutrition (04/08/23) Hypo-osmolality and hyponatremia (04/08/23) Acidosis, unspecified (04/08/23) Other disorders of electrolyte and fluid balance, not elsewhere classified (04/08/23) Unilateral inguinal hernia, without obstruction or gangrene, not specified as recurrent (04/08/23) Other specified soft tissue disorders (04/08/23) Acute kidney failure, unspecified (04/08/23) Severe sepsis without septic shock (04/08/23) Severe sepsis with septic shock (04/08/23) Other specified abnormalities of plasma proteins (04/08/23) Acquired absence of other specified parts of digestive tract (04/08/23) Subjective Subjective NG tube removed. Still with LUE swelling. Objective Data Objective Data Vital Signs: Vital Signs Temp Pulse Resp BP Pulse Ox O2 Del Method O2 Flow Rate 37.1 C 99 16 155/72 H 95 Room Air 2 04/15/23 04:06 04/15/23 04:06 04/15/23 04:06 04/15/23 04:06 04/15/23 04:06 04/15/23 04:11 04/14/23 21:29 Oxygen Flow Rate (L/min) 2 Oxygen Delivery Method Room Air Weight: 53.2 kg Body Mass Index (BMI) 20.1 Intake & Output: Intake and Output for Last 24 Hours 04/13/23 04/14/23 04/15/23 23:59 23:59 23:59 Intake Total 1556.9 / 1556.9 1788 / 1788 60 / 60 Output Total 1725 / 1725 1800 / 1800 600 / 600 Balance -168.1 / -168.1 -12 / -12 -540 / -540 Medical Nutrition Assessment Dietitian: Malnutrition Criteria Met Start: 04/09/23 11:25 Freq: Status: Active Protocol: Document 04/14/23 16:39 RMA (Rec: 04/14/23 16:39 RMA [id number]) Nutrition Malnutrition Evidence of Malnutrition Exists Yes Malnutrition (severe): Acute Illness/Injury Evidenced By Suboptimal Energy Intake ( Severe),Weight Loss (Severe), Physical Changes (Moderate) Intake Problem Inadequate Oral Intake Etiology related to altered GI function /SBO; post-op ileus Signs/Symptoms as evidenced by extended NPO x day 6-7 with NG to suction; need for parenteral nutrition support Status Active Problem Clinical Problem Acute Disease or Injury Related Malnutrition Etiology Severe protein-calorie malnutrition in the context of acute illness related to altered GI function and inadequate oral intake Signs/Symptoms as evidenced by ~8% weight loss x past 1-2 months, BMI 18 .5, extended NPO status, PO meeting less than 50% estimated nutrition needs x past 1 month and moderate muscle wasting and fat depletion in the face, clavicle, arms and legs; need for parenteral nutrition support Status Active Problem Recommendation Dietitian Recommendations/Changes NPO; Will order TPN per consult from Dr. Lu to manage and implement. Will order Bag #1 of 1 L Clinimix with electrolytes, MVI, folic acid and trace elements 8% amino acid/14% dextrose @ 42 mL/hr to provide 798 kcal, 140 gm dextrose and 80 gm protein . Monitor daily weights. Check triglycerides 1 time per week. Will piggyback lipids as indicated; no lipids with first bag. Lab / Micro Data 04/15/23 06:38 04/15/23 06:38 Labs: Laboratory Results - last 24 hr 04/14/23 06:30: Triglycerides 115 04/14/23 22:50: POC Glucose 135 H 04/15/23 05:34: POC Glucose 146 H 04/15/23 06:38: WBC 6.0, RBC 3.37 L, Hgb 10.7 L, Hct 31.7 L, MCV 94.1, MCH 31.8, MCHC 33.8, RDW Std Deviation 49.8 H, RDW Coeff of Loyda 14.5, Plt Count 268, MPV 10.0, Immature Gran % (Auto) 1.500 H, Neut % (Auto) 66.6, Lymph % (Auto) 13.8 L, [place] % (Auto) 15.1 H, Eos % (Auto) 1.8, Baso % (Auto) 1.2 H, Absolute Neuts (auto) 4.0, Absolute Lymphs (auto) 0.82 L, Nucleated RBC % 0, Sodium 142, Potassium 3.3 L, Chloride 109 H, Carbon Dioxide 29.0, Anion Gap 4 L, BUN 16, Creatinine 0.46 L, Estim Creat Clear Calc 41.45, Est GFR (MDRD) Af Amer 171, Est GFR (MDRD) Non-Af 142, BUN/Creatinine Ratio 34.9 H, Glucose 165 H, Calcium 7.5 L , Phosphorus 2.0 L, Magnesium 1.7 Micro: Microbiology 04/08/23 19:45 Blood Culture (Wb) - Anticubital Left Blood Culture - Final No growth in 5 days. 04/08/23 19:15 Blood Culture (Wb) - Anticubital Left Blood Culture - Final No growth in 5 days. 04/09/23 05:45 Blood Culture (Wb) - Line Draw Blood Culture - Final No growth in 5 days. 04/09/23 06:00 Blood Culture (Wb) - Left Forearm Blood Culture - Final No growth in 5 days. 04/08/23 19:40 Urine, Catheterized Urine Culture - Final Escherichia coli Radiography Diagnostic Testing: Radiology Impression KUB X-Ray 04/14/23 07:17 IMPRESSION: Persistent small bowel distention. Electronically Signed: Stone Floyd MD at 8:17 EDT , Abdomen/Pelvis CT 04/14/23 09:19 IMPRESSION: Fluid filled and contrast filled small bowel loops down to the level of the anastomosis in the lower pelvis. Small amount of gas and fecal material seen in the colon. Small amount of free air is seen within the right upper quadrant. Most likely postoperative in nature. Small bilateral pleural effusions slightly worse on the right side with basilar atelectasis. Electronically Signed: Blane De La Rosa MD at 12:45 EDT , Abdomen X-Ray 04/15/23 05:55 IMPRESSION: 1. Free air under the diaphragm consistent with the recent CT exam. 2. Slight decreased distention of the small bowel loops since the previous exam. Electronically Signed: Richard Harley MD at 7:24 EDT , Physical Exam Const alert and no apparent distress HEENT head/scalp atraumatic and moist oral mucous membranes Resp normal respiratory effort, no retractions, no use of accessory muscles and clear to auscultation bilaterally Cardio regular rate, regular rhythm, S1 normal heart sound and S2 normal heart sound GI normal to inspection, nondistended, normoactive bowel sounds, soft to palpation, non-tender and non-distended Extremity full ROM Extremity Narrative: decreased LUE edema. Assessment & Plan Assessment/Plan (1) S/P small bowel resection: PLAN: Management per surgery. Patient underwent an exploratory laparotomy with small bowel resection for strangulated right inguinal hernia. Has not had any substantial nutrition since the second. CAT scan today showed fluid-filled and contrast-filled small bowel loops down to the level of the anastomosis and lower pelvis. Small amount of gas and fecal material seen in the colon. Small amount of free air seen in the right upper quadrant. NGT removed (2) Superficial venous thrombosis of left arm: PLAN: Prelim report of duplex Supportive mgmt no anticoagulation needed. (3) Malnutrition: QUALIFIERS: Malnutrition type: protein-calorie malnutrition Protein-calorie malnutrition severity: severe Qualified Code(s): E43 - Unspecified severe protein-calorie malnutrition PLAN: Is been since 8 days since she has had anything substantial to eat. Consult nutrition for TPN PICC line for administration of TPN would continue until pt eating adequately. (4) Septic shock: PLAN: 2/2 SBO from strangulated inguinal hernia. resolved abx d/c'd on the . (5) Elevated troponin: PLAN: likely type 2, demand from above echo showed an EF of 60% no additional work up at this time. PLAN: Plan Chronic conditions: * osteoporosis * GERN * HLP VTE prophylaxis: enoxaparin. Charges/Coding Visit Charges Inpatient E&M: 32454 Subs Hosp L2
[2023-04-15 08:15] VITALS: O2SAT 92
[2023-04-15 08:37] VITALS: O2SAT 91
[2023-04-15] MEDS: Menthol/Lanolin/Calamine/Znox 113 GM Tube 1 APPLIC TOPICAL ×2 (09:14→20:14)
[2023-04-15] MEDS: 0.9% Saline Lock 10 ML Syringe IV ×3 (09:27→18:53)
[2023-04-15 10:51] VITALS: BP 141/58; PULSE 92; RESP 17; TEMP 36.9; O2SAT 95
[2023-04-15] MEDS: NYSTATIN 500,000 UNIT/5 ML UDC 500000 UNIT PO ×3 (10:56→20:15)
[2023-04-15] MEDS: Enoxaparin 40 MG/0.4 ML Syringe SC (10:57)
[2023-04-15 12:33] LABS: Bedside Glucose 161 mg/dL (74-106)
[2023-04-15 16:42] VITALS: BP 140/72; PULSE 100; RESP 17; TEMP 37; O2SAT 93
[2023-04-15] MEDS: TPN - Clinimix E 8%-14% Soln 2,000 ML with Multivitamins 10 ML, Trace Elements 1 ML, Fo... 42 ML IV (16:53)
[2023-04-15 19:11] LABS: Bedside Glucose 145 mg/dL (74-106)
[2023-04-15 21:00] VITALS: BP 123/65; PULSE 96; RESP 18; TEMP 36.4; O2SAT 94
[2023-04-15] MEDS: Acetaminophen 325 MG Tablet 650 MG PO (23:40)
[2023-04-16 00:04] LABS: Bedside Glucose 148 mg/dL (74-106)
[2023-04-16 03:10] VITALS: BP 113/62; PULSE 92; RESP 18; TEMP 35.7; O2SAT 95
[2023-04-16 05:38] VITALS: BMI 20.8
[2023-04-16] MEDS: Levothyroxine 100 MCG Tablet PO (05:48)
[2023-04-16 06:03] LABS: Absolute Lymphocyte Count 1.46 X10^3/uL (0.83-4.51); Absolute Neutrophil Count 4.6 X10^3/uL (2.0-7.7); Basophil# 0.02 X10^3/uL; Basophil% 0.3 % (0-1); Eosinophils% 1.4 % (0-5); Hematocrit 34.2 % (37-47); Hemoglobin 11.3 g/dL (12.0-15.0); Lymphocyte # 1.46 X10^3/ul (0.83-4.51); Lymphocyte % 19.8 % (19-41); Mean Corpuscular Hgb 31.2 pg (27.0-32.0); Mean Corpuscular Volume 94.5 fL (81-99); Mean Platelet Vol. 10.3 fl (6.2-12.0); Monocyte# 1.07 X10^3/uL; Monocyte% 14.5 % (0-10); NRBC Flagged by Analyzer 0 % (0-5); Neutrophil # 4.62 X10^3/uL (2.7-7.7); Neutrophil % 62.8 % (47-70); POSITIVE MORPHOLOGY YES; Platelet Count 295 K/mm3 (150-450); RBC Distribution Width CV 14.3 % (11.6-14.6); RBC Distribution Width SD 50.2 fl (35.1-43.9); Red Blood Count 3.62 M/mm3 (4.2-5.4); White Blood Count 7.4 K/mm3 (4.4-11.0)
[2023-04-16 06:04] LABS: Differential Indicated SCAN CRITERIA MET
[2023-04-16 06:27] LABS: Bedside Glucose 132 mg/dL (74-106)
[2023-04-16 06:29] LABS: ALB/GLOB Ratio 0.6 RATIO (0.9-2.4); AST(SGOT) 25 U/L (15-37); Alanine Aminotransfer ALT/SGPT 22 U/L (13-56); Albumin, Serum 1.9 g/dL (3.2-5.0); Alkaline Phosphatase 71 U/L (45-117); Anion Gap 4 (5-15); BUN 14 mg/dL (7-18); Calcium,Total 7.8 mg/dL (8.5-10.1); Chloride 104 mmol/L (98-107); Creatinine, Serum 0.38 mg/dL (0.55-1.02); EST Glomerular Filtration Rate 177 mL/min (>60); Est Glom Filt Rate - Afr Amer 214 mL/min (>60); Estimated Creatinine Clearance 42.62 ml/min; Globulin 3.2 g/dL (2.2-4.2); Glucose 122 mg/dL (74-106); Magnesium 1.6 mg/dL (1.6-2.6); Phosphorus 2.1 mg/dL (2.5-4.9); Potassium 3.5 mmol/L (3.5-5.1); Protein, Total 5.1 g/dL (6.4-8.2); Sodium Level 137 mmol/L (136-145)
[2023-04-16 06:41] LABS: Atypical Lymphocyte 1+ %
--- NOTE | 2023-04-16 08:06 | PN.SURG_ITS ---
Subjective Subjective Patient was seen and examined during AM rounds. She is found resting quietly in bed. She states that she tolerated her clear liquids without any nausea, vomiting, hiccuping, or reflux. However, she denies an appetite this morning. She states that she is still bloated. She denies any significant abdominal pain. Objective Data Objective Data Vital Signs: Vital Signs Temp Pulse Resp BP Pulse Ox O2 Del Method O2 Flow Rate 96.2 F L 92 18 113/62 95 Room Air 2 04/16/23 03:10 04/16/23 03:10 04/16/23 03:10 04/16/23 03:10 04/16/23 03:10 04/16/23 03:10 04/14/23 21:29 Oxygen Flow Rate (L/min) 2 Oxygen Delivery Method Room Air Weight: 121 lb 4.068 oz Body Mass Index (BMI) 20.8 Intake & Output: Intake and Output for Last 24 Hours 04/14/23 04/15/23 04/16/23 23:59 23:59 23:59 Intake Total 1788 / 1788 3116.3333 / 3166.3333 90 / 90 Output Total 1800 / 1800 1000 / 1500 500 / 500 Balance - 2116.3333 / 1666.3333 -410 / -410 Medical Nutrition Assessment Dietitian: Malnutrition Criteria Met Start: 04/09/23 11:25 Freq: Status: Active Protocol: Document 04/15/23 13:55 RMA (Rec: 04/15/23 13:55 RMA [id number]) Nutrition Malnutrition Evidence of Malnutrition Exists Yes Malnutrition (severe): Acute Illness/Injury Evidenced By Suboptimal Energy Intake ( Severe),Weight Loss (Severe), Physical Changes (Moderate) Intake Problem Inadequate Oral Intake Etiology related to altered GI function /SBO; post-op ileus Signs/Symptoms as evidenced by extended NPO x day 6-7 with NG to suction; need for parenteral nutrition support Status Active Problem Clinical Problem Acute Disease or Injury Related Malnutrition Etiology Severe protein-calorie malnutrition in the context of acute illness related to altered GI function and inadequate oral intake Signs/Symptoms as evidenced by ~8% weight loss x past 1-2 months, BMI 18 .5, extended NPO status, PO meeting less than 50% estimated nutrition needs x past 1 month and moderate muscle wasting and fat depletion in the face, clavicle, arms and legs; need for parenteral nutrition support Status Active Problem Recommendation Dietitian Recommendations/Changes Advance diet as tolerated to full liquids and on to Transitional diet as able. Will order TPN Bag #2: 1 L Clinimix with electrolytes, MVI, folic acid and trace elements 8% amino acid/14% dextrose @ 42 mL/hr to provide 798 kcal, 140 gm dextrose and 80 gm protein. Monitor daily weights, labs and follow-up. Lab / Micro Data 04/16/23 05:32 04/16/23 05:32 Labs: Laboratory Results - last 24 hr 04/15/23 12:15: POC Glucose 161 H 04/15/23 18:49: POC Glucose 145 H 04/15/23 23:44: POC Glucose 148 H 04/16/23 05:32: WBC 7.4, RBC 3.62 L, Hgb 11.3 L, Hct 34.2 L, MCV 94.5, MCH 31.2, MCHC 33.0, RDW Std Deviation 50.2 H, RDW Coeff of Loyda 14.3, Plt Count 295, MPV 10.3, Immature Gran % (Auto) 1.200 H, Neut % (Auto) 62.8, Lymph % (Auto) 19.8, [place] % (Auto) 14.5 H, Eos % (Auto) 1.4, Baso % (Auto) 0.3, Absolute Neuts (auto) 4.6, Absolute Lymphs (auto) 1.46, Nucleated RBC % 0, Atypical Lymphocytes 1+, Sodium 137, Potassium 3.5, Chloride 104, Carbon Dioxide 29.0, Anion Gap 4 L, BUN 14, Creatinine 0.38 L, Estim Creat Clear Calc 42.62, Est GFR (MDRD) Af Amer 214, Est GFR (MDRD) Non-Af 177, BUN/Creatinine Ratio 37.0 H, Glucose 122 H, Calcium 7.8 L, Phosphorus 2.1 L, Magnesium 1.6, Total Bilirubin 0.30, AST 25, ALT 22, Alkaline Phosphatase 71, Total Protein 5.1 L, Albumin 1.9 L, Globulin 3.2, Alb umin/Globulin Ratio 0.6 L 04/16/23 05:51: POC Glucose 132 H Micro: Microbiology 04/08/23 19:45 Blood Culture (Wb) - Anticubital Left Blood Culture - Final No growth in 5 days. 04/08/23 19:15 Blood Culture (Wb) - Anticubital Left Blood Culture - Final No growth in 5 days. 04/09/23 05:45 Blood Culture (Wb) - Line Draw Blood Culture - Final No growth in 5 days. 04/09/23 06:00 Blood Culture (Wb) - Left Forearm Blood Culture - Final No growth in 5 days. 04/08/23 19:40 Urine, Catheterized Urine Culture - Final Escherichia coli Radiography Diagnostic Testing: Radiology Impression Venous Doppler Study 04/14/23 16:11 Interpretation Summary Acute superficial vein thrombosis identified in the left cephalic vein. Deep veins of the left upper extremity are patent and compressible segmentally. There is no evidence of deep vein thrombosis. Ordering Physician: Federico Lu Performed By: Aly Peña RVT ??? Physical Exam Const oriented x3 and no apparent distress Resp normal respiratory effort GI GI Narrative: Mildly distended, soft, nontender to palpation x4 quadrants. Incision is well approximated with skin francisco. There is no surrounding erythema or drainage from the incision line. Assessment & Plan Assessment/Plan (1) S/P small bowel resection: PLAN: Patient is postoperative day 7 from exploratory laparotomy with small bowel resection for strangulated right inguinal hernia. She continues to demonstrate resolution of her postoperative ileus with tolerance of clear liquid yesterday. Although she denies an appetite, with this tolerance I would like to plan to advance her diet to improve her nutritional status and wean her TPN as soon as possible (with plans to continue today). She does express some interest in the food available to her with a full liquid diet. We will look to make that transition and add ensures today. From a surgical standpoint, her wound appears appropriate but she does have some residue along its surface. I have recommended showering today and irrigating the wound with the shower water. I would like to keep an eye on her abdominal exam given some evidence of mild distention. Charges/Coding Visit Charges Inpatient E&M: 62792 Subs Hosp L2
--- NOTE | 2023-04-16 08:29 | PN.HOSP_ITS ---
Reason for Visit Reason for Visit: Diagnoses Sepsis, unspecified organism (04/08/23) Elevated white blood cell count, unspecified (04/08/23) Unspecified severe protein-calorie malnutrition (04/08/23) Hypo-osmolality and hyponatremia (04/08/23) Acidosis, unspecified (04/08/23) Other disorders of electrolyte and fluid balance, not elsewhere classified (04/08/23) Acute embolism and thrombosis of superficial veins of left upper extremity (04/08/23) Unilateral inguinal hernia, without obstruction or gangrene, not specified as recurrent (04/08/23) Other specified soft tissue disorders (04/08/23) Acute kidney failure, unspecified (04/08/23) Severe sepsis without septic shock (04/08/23) Severe sepsis with septic shock (04/08/23) Other specified abnormalities of plasma proteins (04/08/23) Acquired absence of other specified parts of digestive tract (04/08/23) Subjective Subjective Tolerating clears. Objective Data Objective Data Vital Signs: Vital Signs Temp Pulse Resp BP Pulse Ox O2 Del Method O2 Flow Rate 35.7 C L 92 18 113/62 95 Room Air 2 04/16/23 03:10 04/16/23 03:10 04/16/23 03:10 04/16/23 03:10 04/16/23 03:10 04/16/23 03:10 04/14/23 21:29 Oxygen Flow Rate (L/min) 2 Oxygen Delivery Method Room Air Weight: 55 kg Body Mass Index (BMI) 20.8 Intake & Output: Intake and Output for Last 24 Hours 04/14/23 04/15/23 04/16/23 23:59 23:59 23:59 Intake Total 1788 / 1788 3116.3333 / 3166.3333 90 / 90 Output Total 1800 / 1800 1000 / 1500 500 / 500 Balance -12 2116.3333 / 1666.3333 -410 / -410 Medical Nutrition Assessment Dietitian: Malnutrition Criteria Met Start: 04/09/23 11:25 Freq: Status: Active Protocol: Document 04/15/23 13:55 RMA (Rec: 04/15/23 13:55 RMA [id number]) Nutrition Malnutrition Evidence of Malnutrition Exists Yes Malnutrition (severe): Acute Illness/Injury Evidenced By Suboptimal Energy Intake ( Severe),Weight Loss (Severe), Physical Changes (Moderate) Intake Problem Inadequate Oral Intake Etiology related to altered GI function /SBO; post-op ileus Signs/Symptoms as evidenced by extended NPO x day 6-7 with NG to suction; need for parenteral nutrition support Status Active Problem Clinical Problem Acute Disease or Injury Related Malnutrition Etiology Severe protein-calorie malnutrition in the context of acute illness related to altered GI function and inadequate oral intake Signs/Symptoms as evidenced by ~8% weight loss x past 1-2 months, BMI 18 .5, extended NPO status, PO meeting less than 50% estimated nutrition needs x past 1 month and moderate muscle wasting and fat depletion in the face, clavicle, arms and legs; need for parenteral nutrition support Status Active Problem Recommendation Dietitian Recommendations/Changes Advance diet as tolerated to full liquids and on to Transitional diet as able. Will order TPN Bag #2: 1 L Clinimix with electrolytes, MVI, folic acid and trace elements 8% amino acid/14% dextrose @ 42 mL/hr to provide 798 kcal, 140 gm dextrose and 80 gm protein. Monitor daily weights, labs and follow-up. Lab / Micro Data 04/16/23 05:32 04/16/23 05:32 Labs: Laboratory Results - last 24 hr 04/15/23 12:15: POC Glucose 161 H 04/15/23 18:49: POC Glucose 145 H 04/15/23 23:44: POC Glucose 148 H 04/16/23 05:32: WBC 7.4, RBC 3.62 L, Hgb 11.3 L, Hct 34.2 L, MCV 94.5, MCH 31.2, MCHC 33.0, RDW Std Deviation 50.2 H, RDW Coeff of [place] 14.3, Plt Count 295, MPV 10.3, Immature Gran % (Auto) 1.200 H, Neut % (Auto) 62.8, Lymph % (Auto) 19.8, [place] % (Auto) 14.5 H, Eos % (Auto) 1.4, Baso % (Auto) 0.3, Absolute Neuts (auto) 4.6, Absolute Lymphs (auto) 1.46, Nucleated RBC % 0, Atypical Lymphocytes 1+, Sodium 137, Potassium 3.5, Chloride 104, Carbon Dioxide 29.0, Anion Gap 4 L, BUN 14, Creatinine 0.38 L, Estim Creat Clear Calc 42.62, Est GFR (MDRD) Af Amer 214, Est GFR (MDRD) Non-Af 177, BUN/Creatinine Ratio 37.0 H, Glucose 122 H, Calcium 7.8 L, Phosphorus 2.1 L, Magnesium 1.6, Total Bilirubin 0.30, AST 25, ALT 22, Alkaline Phosphatase 71, Total Protein 5.1 L, Albumin 1.9 L, Globulin 3.2, Albumin/Globulin Ratio 0.6 L 04/16/23 05:51: POC Glucose 132 H Micro: Microbiology 04/08/23 19:45 Blood Culture (Wb) - Anticubital Left Blood Culture - Final No growth in 5 days. 04/08/23 19:15 Blood Culture (Wb) - Anticubital Left Blood Culture - Final No growth in 5 days. 04/09/23 05:45 Blood Culture (Wb) - Line Draw Blood Culture - Final No growth in 5 days. 04/09/23 06:00 Blood Culture (Wb) - Left Forearm Blood Culture - Final No growth in 5 days. 04/08/23 19:40 Urine, Catheterized Urine Culture - Final Escherichia coli Radiography Diagnostic Testing: Radiology Impression Venous Doppler Study 04/14/23 16:11 Interpretation Summary Acute superficial vein thrombosis identified in the left cephalic vein. Deep veins of the left upper extremity are patent and compressible segmentally. There is no evidence of deep vein thrombosis. Ordering Physician: Federico Lu Performed By: Aly Peña, RVT ??? Physical Exam Const alert and no apparent distress HEENT head/scalp atraumatic and moist oral mucous membranes Resp normal respiratory effort, no retractions, no use of accessory muscles and clear to auscultation bilaterally Cardio regular rate, regular rhythm, S1 normal heart sound and S2 normal heart sound GI normal to inspection, nondistended, normoactive bowel sounds, soft to palpation, non-tender and non-distended Assessment & Plan Assessment/Plan (1) S/P small bowel resection: PLAN: Management per surgery. Patient underwent an exploratory laparotomy with small bowel resection for strangulated right inguinal hernia. Has not had any substantial nutrition since the second. CAT scan today showed fluid-filled and contrast-filled small bowel loops down to the level of the anastomosis and lower pelvis. Small amount of gas and fecal material seen in the colon. Small amount of free air seen in the right upper quadrant. NGT removed (2) Superficial venous thrombosis of left arm: PLAN: Acute SVT in left cephalic vein. Supportive mgmt no anticoagulation needed. (3) Malnutrition: QUALIFIERS: Malnutrition type: protein-calorie malnutrition Protein-calorie malnutrition severity: severe Qualified Code(s): E43 - Unspecified severe protein-calorie malnutrition PLAN: Is been since 8 days since she has had anything substantial to eat. Consult nutrition for TPN PICC line for administration of TPN would continue until pt eating adequately. (4) Septic shock: PLAN: 2/2 SBO from strangulated inguinal hernia. resolved abx d/c'd on the . (5) Elevated troponin: PLAN: likely type 2, demand from above echo showed an EF of 60% no additional work up at this time. PLAN: Plan Chronic conditions: * osteoporosis * GERN * HLP VTE prophylaxis: enoxaparin. Charges/Coding Visit Charges Inpatient E&M: 08440 Subs Hosp L2
[2023-04-16 09:45] VITALS: BP 124/90; PULSE 105; RESP 16; TEMP 37; O2SAT 95
[2023-04-16] MEDS: NYSTATIN 500,000 UNIT/5 ML UDC 500000 UNIT PO ×3 (09:52→21:40)
[2023-04-16] MEDS: Enoxaparin 40 MG/0.4 ML Syringe SC (09:52)
[2023-04-16] MEDS: Menthol/Lanolin/Calamine/Znox 113 GM Tube 1 APPLIC TOPICAL ×2 (09:55→21:39)
[2023-04-16] MEDS: Acetaminophen 325 MG Tablet 650 MG PO ×2 (11:28→22:07)
[2023-04-16] MEDS: Ensure Plus High Protein 120 ML LIQUID PO (11:31)
[2023-04-16] MEDS: 0.9% Saline Lock 10 ML Syringe IV (12:52)
[2023-04-16 14:06] LABS: Bedside Glucose 122 mg/dL (74-106)
[2023-04-16] MEDS: TPN - Clinimix E 8%-14% Soln 2,000 ML with Multivitamins 10 ML, Trace Elements 1 ML, Fo... 42 ML IV (16:40)
[2023-04-16] MEDS: Lactated Ringers 1,000 ML 60 ML IV (16:41)
[2023-04-16 16:45] VITALS: BP 121/61; PULSE 96; RESP 16; TEMP 36.9; O2SAT 95
[2023-04-16 18:55] LABS: Bedside Glucose 138 mg/dL (74-106)
[2023-04-16 22:43] VITALS: BP 123/54; PULSE 101; RESP 16; TEMP 36.9; O2SAT 94
[2023-04-16 23:39] LABS: Bedside Glucose 125 mg/dL (74-106)
[2023-04-17 04:17] VITALS: BP 135/60; PULSE 84; RESP 14; TEMP 36.8; O2SAT 93
[2023-04-17] MEDS: 0.9% Saline Lock 10 ML Syringe IV (05:15)
[2023-04-17] MEDS: Levothyroxine 100 MCG Tablet PO (05:15)
[2023-04-17 05:52] LABS: Bedside Glucose 107 mg/dL (74-106)
[2023-04-17 06:00] VITALS: BMI 22.0
[2023-04-17 06:16] LABS: ALB/GLOB Ratio 0.5 RATIO (0.9-2.4); AST(SGOT) 24 U/L (15-37); Alanine Aminotransfer ALT/SGPT 16 U/L (13-56); Albumin, Serum 1.6 g/dL (3.2-5.0); Alkaline Phosphatase 72 U/L (45-117); Anion Gap 3 (5-15); BUN 14 mg/dL (7-18); BUN/Creat Ratio 34.6 RATIO (10-20); Calcium,Total 7.9 mg/dL (8.5-10.1); Chloride 106 mmol/L (98-107); EST Glomerular Filtration Rate 163 mL/min (>60); Est Glom Filt Rate - Afr Amer 197 mL/min (>60); Estimated Creatinine Clearance 42.62 ml/min; Glucose 103 mg/dL (74-106); Magnesium 1.6 mg/dL (1.6-2.6); Phosphorus 2.3 mg/dL (2.5-4.9); Potassium 3.8 mmol/L (3.5-5.1); Protein, Total 4.6 g/dL (6.4-8.2); Sodium Level 137 mmol/L (136-145)
--- NOTE | 2023-04-17 09:08 | PCM.PN.HOSP ---
Reason for Visit Reason for Visit: Diagnoses Sepsis, unspecified organism (04/08/23) Elevated white blood cell count, unspecified (04/08/23) Unspecified severe protein-calorie malnutrition (04/08/23) Hypo-osmolality and hyponatremia (04/08/23) Acidosis, unspecified (04/08/23) Other disorders of electrolyte and fluid balance, not elsewhere classified (04/08/23) Acute embolism and thrombosis of superficial veins of left upper extremity (04/08/23) Unilateral inguinal hernia, without obstruction or gangrene, not specified as recurrent (04/08/23) Other specified soft tissue disorders (04/08/23) Acute kidney failure, unspecified (04/08/23) Severe sepsis without septic shock (04/08/23) Severe sepsis with septic shock (04/08/23) Other specified abnormalities of plasma proteins (04/08/23) Acquired absence of other specified parts of digestive tract (04/08/23) Subjective Subjective Feels well. Objective Data Objective Data Vital Signs: Vital Signs Temp Pulse Resp BP Pulse Ox O2 Del Method O2 Flow Rate 36.8 C 84 14 135/60 H 93 Room Air 2 04/17/23 04:17 04/17/23 04:17 04/17/23 04:17 04/17/23 04:17 04/17/23 04:17 04/17/23 08:31 04/14/23 21:29 Oxygen Flow Rate (L/min) 2 Oxygen Delivery Method Room Air Weight: 58.2 kg Body Mass Index (BMI) 22.0 Intake & Output: Intake and Output for Last 24 Hours 04/15/23 04/16/23 04/17/23 23:59 23:59 23:59 Intake Total 3116.3333 / 3166.3333 2894.7 / 3014.7 220 / 220 Output Total 1000 / 1500 500 / 500 700 / 700 Balance 2116.3333 / 1666.3333 2394.7 / 2514.7 -480 / -480 Medical Nutrition Assessment Dietitian: Malnutrition Criteria Met Start: 04/09/23 11:25 Freq: Status: Active Protocol: Document 04/16/23 14:20 RMA (Rec: 04/16/23 14:21 RMA [id number]) Nutrition Malnutrition Evidence of Malnutrition Exists Yes Malnutrition (severe): Acute Illness/Injury Evidenced By Suboptimal Energy Intake ( Severe),Weight Loss (Severe), Physical Changes (Moderate) Intake Problem Inadequate Oral Intake Etiology related to altered GI function /SBO; post-op ileus Signs/Symptoms as evidenced by extended NPO x day 6-7 with NG to suction; need for parenteral nutrition support; currently PO clear/ full liquids allowed Status Active Problem Clinical Problem Acute Disease or Injury Related Malnutrition Etiology Severe protein-calorie malnutrition in the context of acute illness related to altered GI function and inadequate oral intake Signs/Symptoms as evidenced by ~8% weight loss x past 1-2 months, BMI 18 .5, extended NPO status, PO meeting less than 50% estimated nutrition needs x past 1 month and moderate muscle wasting and fat depletion in the face, clavicle, arms and legs; need for parenteral nutrition support Status Active Problem Recommendation Dietitian Recommendations/Changes Advance PO as tolerated to Transitional diet. Continue 120mL ensure plus high protein TID w/ medpass. Will add 240mL ensure clear BID w/ breakfast and dinner. Will order TPN Bag #3 today: 1 L Clinimix with electrolytes , MVI, folic acid and trace elements 8% amino acid/14% dextrose @ 42 mL/hr to provide 798 kcal, 140 gm dextrose and 80 gm protein. Monitor daily weights, labs and follow-up. Lab / Micro Data 04/16/23 05:32 04/17/23 05:14 Labs: Laboratory Results - last 24 hr 04/16/23 13:48: POC Glucose 122 H 04/16/23 18:37: POC Glucose 138 H 04/16/23 23:21: POC Glucose 125 H 04/17/23 05:14: Sodium 137, Potassium 3.8, Chloride 106, Carbon Dioxide 28.0, Anion Gap 3 L, BUN 14, Creatinine 0.40 L, Estim Creat Clear Calc 42.62, Est GFR (MDRD) Af Amer 197, Est GFR (MDRD) Non-Af 163, BUN/Creatinine Ratio 34.6 H, Glucose 103, Calcium 7.9 L, Phosphorus 2.3 L, Magnesium 1.6, Total Bilirubin 0.30, AST 24, ALT 16, Alkaline Phosphatase 72, Total Protein 4.6 L, Albumin 1.6 L, Globulin 3.0, Albumin/Globulin Ratio 0.5 L 04/17/23 05:19: POC Glucose 107 H Micro: Microbiology 04/08/23 19:45 Blood Culture (Wb) - Anticubital Left Blood Culture - Final No growth in 5 days. 04/08/23 19:15 Blood Culture (Wb) - Anticubital Left Blood Culture - Final No growth in 5 days. 04/09/23 05:45 Blood Culture (Wb) - Line Draw Blood Culture - Final No growth in 5 days. 04/09/23 06:00 Blood Culture (Wb) - Left Forearm Blood Culture - Final No growth in 5 days. 04/08/23 19:40 Urine, Catheterized Urine Culture - Final Escherichia coli Physical Exam Const alert and no apparent distress HEENT head/scalp atraumatic and moist oral mucous membranes Resp normal respiratory effort and no retractions Cardio regular rate, regular rhythm, S1 normal heart sound and S2 normal heart sound GI normal to inspection, nondistended, normoactive bowel sounds, soft to palpation and non-tender Extremity normal to inspection and full ROM Assessment & Plan Assessment/Plan (1) S/P small bowel resection: PLAN: Management per surgery. Patient underwent an exploratory laparotomy with small bowel resection for strangulated right inguinal hernia. Has not had any substantial nutrition since the second. CAT scan today showed fluid-filled and contrast-filled small bowel loops down to the level of the anastomosis and lower pelvis. Small amount of gas and fecal material seen in the colon. Small amount of free air seen in the right upper quadrant. NGT removed regular diet (2) Superficial venous thrombosis of left arm: PLAN: Acute SVT in left cephalic vein. Supportive mgmt no anticoagulation needed. (3) Malnutrition: QUALIFIERS: Malnutrition type: protein-calorie malnutrition Protein-calorie malnutrition severity: severe Qualified Code(s): E43 - Unspecified severe protein-calorie malnutrition PLAN: Is been since 8 days since she has had anything substantial to eat. Consult nutrition for TPN PICC line for administration of TPN had received TPN to supplement diet. Now advanced to regular diet. Unless surgery feels otherwise, can hold off on renewing TPN (4) Septic shock: PLAN: 2/2 SBO from strangulated inguinal hernia. resolved abx d/c'd on the . (5) Elevated troponin: PLAN: likely type 2, demand from above echo showed an EF of 60% no additional work up at this time. PLAN: Plan Chronic conditions: osteoporosis GERN HLP VTE prophylaxis: enoxaparin. Charges/Coding Visit Charges Inpatient E&M: 05511 Subs Hosp L2
[2023-04-17] MEDS: Acetaminophen 325 MG Tablet 650 MG PO ×3 (09:36→21:32)
[2023-04-17] MEDS: Menthol/Lanolin/Calamine/Znox 113 GM Tube 1 APPLIC TOPICAL ×2 (09:37→21:16)
[2023-04-17] MEDS: Enoxaparin 40 MG/0.4 ML Syringe SC (09:37)
[2023-04-17] MEDS: NYSTATIN 500,000 UNIT/5 ML UDC 500000 UNIT PO ×2 (09:37→15:30)
[2023-04-17 09:49] VITALS: BP 124/67; PULSE 106; RESP 16; TEMP 36.7; O2SAT 94
--- NOTE | 2023-04-17 09:51 | PCM.PN.SRG ---
Subjective Subjective Patient complaining of back pain and some soreness and bloating in her abdomen. She had 2 bowel movements yesterday and tolerated full liquids. Objective Data Objective Data Vital Signs: Vital Signs Temp Pulse Resp BP Pulse Ox O2 Del Method O2 Flow Rate 98.1 F 106 H 16 124/67 H 94 Room Air 2 04/17/23 09:49 04/17/23 09:49 04/17/23 09:49 04/17/23 09:49 04/17/23 09:49 04/17/23 09:49 04/14/23 21:29 Oxygen Flow Rate (L/min) 2 Oxygen Delivery Method Room Air Weight: 128 lb 4.944 oz Body Mass Index (BMI) 22.0 Intake & Output: Intake and Output for Last 24 Hours 04/15/23 04/16/23 04/17/23 23:59 23:59 23:59 Intake Total 3116.3333 / 3166.3333 2894.7 / 3014.7 220 / 220 Output Total 1000 / 1500 500 / 500 700 / 700 Balance 2116.3333 / 1666.3333 2394.7 / 2514.7 -480 / -480 Medical Nutrition Assessment Dietitian: Malnutrition Criteria Met Start: 04/09/23 11:25 Freq: Status: Active Protocol: Document 04/16/23 14:20 RMA (Rec: 04/16/23 14:21 RMA [id number]) Nutrition Malnutrition Evidence of Malnutrition Exists Yes Malnutrition (severe): Acute Illness/Injury Evidenced By Suboptimal Energy Intake ( Severe),Weight Loss (Severe), Physical Changes (Moderate) Intake Problem Inadequate Oral Intake Etiology related to altered GI function /SBO; post-op ileus Signs/Symptoms as evidenced by extended NPO x day 6-7 with NG to suction; need for parenteral nutrition support; currently PO clear/ full liquids allowed Status Active Problem Clinical Problem Acute Disease or Injury Related Malnutrition Etiology Severe protein-calorie malnutrition in the context of acute illness related to altered GI function and inadequate oral intake Signs/Symptoms as evidenced by ~8% weight loss x past 1-2 months, BMI 18 .5, extended NPO status, PO meeting less than 50% estimated nutrition needs x past 1 month and moderate muscle wasting and fat depletion in the face, clavicle, arms and legs; need for parenteral nutrition support Status Active Problem Recommendation Dietitian Recommendations/Changes Advance PO as tolerated to Transitional diet. Continue 120mL ensure plus high protein TID w/ medpass. Will add 240mL ensure clear BID w/ breakfast and dinner. Will order TPN Bag #3 today: 1 L Clinimix with electrolytes , MVI, folic acid and trace elements 8% amino acid/14% dextrose @ 42 mL/hr to provide 798 kcal, 140 gm dextrose and 80 gm protein. Monitor daily weights, labs and follow-up. Lab / Micro Data 04/16/23 05:32 04/17/23 05:14 Labs: Laboratory Results - last 24 hr 04/16/23 13:48: POC Glucose 122 H 04/16/23 18:37: POC Glucose 138 H 04/16/23 23:21: POC Glucose 125 H 04/17/23 05:14: Sodium 137, Potassium 3.8, Chloride 106, Carbon Dioxide 28.0, Anion Gap 3 L, BUN 14, Creatinine 0.40 L, Estim Creat Clear Calc 42.62, Est GFR (MDRD) Af Amer 197, Est GFR (MDRD) Non-Af 163, BUN/Creatinine Ratio 34.6 H, Glucose 103, Calcium 7.9 L, Phosphorus 2.3 L, Magnesium 1.6, Total Bilirubin 0.30, AST 24, ALT 16, Alkaline Phosphatase 72, Total Protein 4.6 L, Albumin 1.6 L, Globulin 3.0, Albumin/Globulin Ratio 0.5 L 04/17/23 05:19: POC Glucose 107 H Micro: Microbiology 04/08/23 19:45 Blood Culture (Wb) - Anticubital Left Blood Culture - Final No growth in 5 days. 04/08/23 19:15 Blood Culture (Wb) - Anticubital Left Blood Culture - Final No growth in 5 days. 04/09/23 05:45 Blood Culture (Wb) - Line Draw Blood Culture - Final No growth in 5 days. 04/09/23 06:00 Blood Culture (Wb) - Left Forearm Blood Culture - Final No growth in 5 days. 04/08/23 19:40 Urine, Catheterized Urine Culture - Final Escherichia coli Physical Exam Const oriented x3 and no apparent distress Resp normal respiratory effort GI soft to palpation Inspection: Negative for abdominal distention Assessment & Plan Assessment/Plan (1) S/P small bowel resection: PLAN: The patient had 2 bowel movements yesterday. She tolerated full liquids and I will advance her to regular diet today. Stop TPN. Likely discharge this afternoon or tomorrow morning. DC planning. Domingo Johnson MD Pager: [facility] [address] [place] [address] [address] [place] [address] Office:
[2023-04-17] MEDS: Calcium Carbonate 500 MG Tablet PO (11:02)
[2023-04-17] MEDS: Pantoprazole Sodium 40 MG Tablet PO (11:03)
[2023-04-17 12:06] LABS: Bedside Glucose 153 mg/dL (74-106)
--- NOTE | 2023-04-17 12:56 | DS.PCM_ITS ---
Providers Date of Admission: 04/08/23 Primary Care Physician: Dr. Tanya Russell MD Consultations 04/09/23 00:59 Consult: Hospitalist Routine Consulting Provider: Lucho Moeller Reason for Consult: medical management EMERGENT Consult: Yes MD Notified: Yes Date Notified: 04/08/23 Time Notified: 21:37 Method of Notification: Verbal Consult: [employer] Data [employer] Architect / Pulmonary Medicine Routine Consulting Provider: Pulmonary Medicine [facility] Reason for Consult: ICU care EMERGENT Consult: No Notified: Yes Date Notified: 04/08/23 Time Notified: 21:38 Method of Notification: Text Reason For Visit: SEPSIS, SMALL BOWEL OBSTRUCTION Diagnosis Discharge Diagnosis (1) S/P small bowel resection: Status: Acute Code(s): Z90.49 - Acquired absence of other specified parts of digestive tract Plan: The patient had 2 bowel movements yesterday. She tolerated full liquids and I will advance her to regular diet today. Stop TPN. Likely discharge this afternoon or tomorrow morning. DC planning. Domingo Johnson MD Pager: [facility] [address] [place] [address], [address] [place] [address] Office: Medications at Discharge Home Medications Ibandronate Sodium [Boniva] 150 mg PO Q30D 10/19/16 Omeprazole [Prilosec] 40 mg PO DAILY 10/19/16 acetaminophen 500 mg tablet 500 mg PO QHS chronic pain 10/19/16 aspirin 81 mg chewable tablet 81 mg PO DAILY@0800 as instructed by physician 10/19/16 benzonatate 100 mg capsule 100 mg PO 4X/DAY PRN PRN Cough ##20 10/19/16 calcium carbonate 600 mg calcium (1,500 mg) tablet 600 mg PO DAILY bone health 10/19/16 cholecalciferol (vitamin D3) 125 mcg (5,000 unit) capsule 5,000 unit PO DAILY bone health 10/19/16 levothyroxine 100 mcg tablet 100 mcg PO DAILY thyroid 10/19/16 rosuvastatin 10 mg tablet 10 mg PO DAILY high cholesterol 10/19/16 buspirone 15 mg tablet 15 mg PO TID depression 04/16/23 levothyroxine 125 mcg tablet 125 mcg PO DAILY thyroid 04/16/23 levothyroxine 75 mcg tablet 75 mcg PO .COMPLEX thyroid 04/16/23 flqdkyuh-rde-oqnup acid 0.4 mg-lycopene 300 mcg-lutein 250 mcg tablet (Centrum Silver) 1 tab PO DAILY vitamin 04/16/23 omeprazole 40 mg capsule,delayed release 40 mg PO DAILY heartburn 04/16/23 simvastatin 10 mg tablet 10 mg PO DAILY cholesterol 04/16/23 food supplemt, lactose-reduced 0.08 gram-1.5 kcal/mL oral liquid (Ensure Plus High Protein) 120 ml PO TIDCM #0 mL 04/17/23 Hospital Course Summary of Care Provided Hospital Course: Patient was admitted and immediately taken for surgery due to incarcerated and strangulated small bowel segment and a right inguinal hernia. The small bowel segment was resected and the patient was brought up to the ICU and sepsis. She was kept on antibiotics and given supportive care in the ICU until her heart rate and blood pressure improved and she came off pressors. She had a postoperative ileus. She required TPN support. Once she started passing flatus and having bowel movement she was advanced to a clear liquid diet and then slowly advance from there. Once tolerating a regular diet TPN was stopped and s he was discharged home. Medical Records Data Medical Nutrition Assessment Dietitian: Malnutrition Criteria Met Start: 04/09/23 11:25 Freq: Status: Active Protocol: Document 04/16/23 14:20 RMA (Rec: 04/16/23 14:21 RMA [id number]) Nutrition Malnutrition Evidence of Malnutrition Exists Yes Malnutrition (severe): Acute Illness/Injury Evidenced By Suboptimal Energy Intake ( Severe),Weight Loss (Severe), Physical Changes (Moderate) Intake Problem Inadequate Oral Intake Etiology related to altered GI function /SBO; post-op ileus Signs/Symptoms as evidenced by extended NPO x day 6-7 with NG to suction; need for parenteral nutrition support; currently PO clear/ full liquids allowed Status Active Problem Clinical Problem Acute Disease or Injury Related Malnutrition Etiology Severe protein-calorie malnutrition in the context of acute illness related to altered GI function and inadequate oral intake Signs/Symptoms as evidenced by ~8% weight loss x past 1-2 months, BMI 18 .5, extended NPO status, PO meeting less than 50% estimated nutrition needs x past 1 month and moderate muscle wasting and fat depletion in the face, clavicle, arms and legs; need for parenteral nutrition support Status Active Problem Recommendation Dietitian Recommendations/Changes Advance PO as tolerated to Transitional diet. Continue 120mL ensure plus high protein TID w/ medpass. Will add 240mL ensure clear BID w/ breakfast and dinner. Will order TPN Bag #3 today: 1 L Clinimix with electrolytes , MVI, folic acid and trace elements 8% amino acid/14% dextrose @ 42 mL/hr to provide 798 kcal, 140 gm dextrose and 80 gm protein. Monitor daily weights, labs and follow-up. Weight / BMI Weight Weight: 128 lb 4.944 oz Body Mass Index (BMI) 22.0 ABG / Lab / Microbiology Data 04/16/23 05:32 04/17/23 05:14 Laboratory: Laboratory Results - last 24 hr 04/16/23 13:48: POC Glucose 122 H 04/16/23 18:37: POC Glucose 138 H 04/16/23 23:21: POC Glucose 125 H 04/17/23 05:14: Sodium 137, Potassium 3.8, Chloride 106, Carbon Dioxide 28.0, Anion Gap 3 L, BUN 14, Creatinine 0.40 L, Estim Creat Clear Calc 42.62, Est GFR (MDRD) Af Amer 197, Est GFR (MDRD) Non-Af 163, BUN/Creatinine Ratio 34.6 H, Glucose 103, Calcium 7.9 L, Phosphorus 2.3 L, Magnesium 1.6, Total Bilirubin 0.30, AST 24, ALT 16, Alkaline Phosphatase 72, Total Protein 4.6 L, Albumin 1.6 L, Globulin 3.0, Albumin/Globulin Ratio 0.5 L 04/17/23 05:19: POC Glucose 107 H 04/17/23 11:49: POC Glucose 153 H Microbiology: Microbiology 04/08/23 19:45 Blood Culture (Wb) - Anticubital Left Blood Culture - Final No growth in 5 days. 04/08/23 19:15 Blood Culture (Wb) - Anticubital Left Blood Culture - Final No growth in 5 days. 04/09/23 05:45 Blood Culture (Wb) - Line Draw Blood Culture - Final No growth in 5 days. 04/09/23 06:00 Blood Culture (Wb) - Left Forearm Blood Culture - Final No growth in 5 days. 04/08/23 19:40 Urine, Catheterized Urine Culture - Final Escherichia coli D/C Instructions Discharge Diet: Light diet - advance as tolerated Discharge Activity: May Shower Lifting Restrictions: 15 lbs for 4 weeks Call your doctor if your incision/area has: Continuous Slow Oozing, Sudden Increased Bleeding, Increased Pain/ Swelling, Increased Redness, Foul Smelling Discharge and Swelling at the incision site Call your doctor if you observe: Fever of 101 or Higher Change Dressing in: 1 day Cleanse incision/area with: Soap & Water Please Follow Up With: Domingo Johnson MD When: Follow up with Dr Johnson 04/21 at 1030 for staple removal, call [phone] with any questions or to change appt Meaningful Use Info Meaningful Use Diagnoses (Choose all that apply): None applicable Discharge Plan Admission Admit Date/Time: 04/08/23 21:37 Attending Provider: Domingo Johnson Primary Care Provider: Tanya Russell Consulting Providers: Lucho Moeller; Rufino Santos; Joshua Snow; Jatinder Meza; Harpal Michael; Diana Gonzales NP; Federico Lu Discharge Orders/Prescriptions Prescriptions: New Ensure Plus High Protein 0.08 gram-1.5 kcal/mL Liquid 120 ml PO TIDCM Qty: 0 0RF Continued acetaminophen 500 MG tablet 500 mg PO QHS levothyroxine 100 MCG tablet 100 mcg PO DAILY calcium carbonate 600 MG tablet 600 mg PO DAILY aspirin 81 MG tablet,chewable 81 mg PO DAILY@0800 cholecalciferol (vitamin D3) 5,000 UNIT capsule 5,000 unit PO DAILY rosuvastatin 10 MG tablet 10 mg PO DAILY Omeprazole [Prilosec] 40 MG capsule 40 mg PO DAILY Ibandronate Sodium [Boniva] 150 MG tablet 150 mg PO Q30D benzonatate 100 MG capsule 100 mg PO 4X/DAY PRN PRN (Reason: Cough) Qty: 20 0RF buspirone 15 mg tablet 15 mg PO TID Patient Comments: TAKE 1 TABLET BY MOUTH THREE TIMES DAILY levothyroxine 125 mcg tablet 125 mcg PO DAILY Patient Comments: TAKE 1 TABLET BY MOUTH ONCE DAILY levothyroxine 75 mcg tablet 75 mcg PO .COMPLEX Patient Comments: TAKE 1 TABLET BY MOUTH ON AN EMPTY STOMACH TWICE A WEEK WITH 125MCG TAB FOR 200MCG TOTAL on friday and friday Rx Instructions: 75 mcg orally twice a week; Centrum Silver 0.4 mg-300 mcg- 250 mcg tablet 1 tab PO DAILY Patient Comments: 1po qday simvastatin 10 mg tablet 10 mg PO DAILY Patient Comments: TAKE 1 TABLET BY MOUTH ONCE DAILY AT BEDTIME FOR CHOLESTEROL omeprazole 40 mg capsule,delayed release(DR/EC) 40 mg PO DAILY Patient Comments: TAKE 1 CAPSULE BY MOUTH ONCE DAILY Referrals / Follow Up: Tanya Russell MD [Primary Care Provider] - Disposition Disposition (needs filled in before D/C Order can be placed): Home Health Service
--- NOTE | 2023-04-17 14:35 | CASEMGMT ---
AIDAN SUAREZ updated that patient will be discharging today. AIDAN SUAREZ called and updated [facility], planned start of care is for Friday. AIDAN SUAREZ updated patient and DC plan. AIDAN SUAREZ completed IMM with patient. Signed copy placed in chart, patient provided with copy. Patient had no further questions or concerns at this time.
[2023-04-17 15:20] VITALS: BP 112/61; PULSE 100; RESP 18; TEMP 36.9; O2SAT 94
[2023-04-17] MEDS: busPIRone 15 MG TABLET PO ×2 (15:30→21:11)
[2023-04-17 16:57] LABS: Bedside Glucose 104 mg/dL (74-106)
[2023-04-17] MEDS: traMADol 50 MG Tablet PO (17:00)
[2023-04-17] MEDS: Atorvastatin Calcium 10 MG Tablet 5 MG PO (21:11)
[2023-04-17 21:20] VITALS: BP 119/69; PULSE 92; RESP 16; TEMP 36.9; O2SAT 96
[2023-04-17 23:57] LABS: Bedside Glucose 97 mg/dL (74-106)
[2023-04-18 02:55] VITALS: BMI 21.4
[2023-04-18 03:20] VITALS: BP 121/72; PULSE 95; RESP 16; TEMP 36.5; O2SAT 95
[2023-04-18] MEDS: Levothyroxine 125 MCG Tablet PO (05:59)
[2023-04-18] MEDS: busPIRone 15 MG TABLET PO (05:59)
[2023-04-18] MEDS: NYSTATIN 500,000 UNIT/5 ML UDC 500000 UNIT PO (08:50)
[2023-04-18] MEDS: Calcium Carbonate 500 MG Tablet PO (08:50)
[2023-04-18] MEDS: Enoxaparin 40 MG/0.4 ML Syringe SC (08:51)
[2023-04-18] MEDS: Pantoprazole Sodium 40 MG Tablet PO (08:51)
[2023-04-18] MEDS: Acetaminophen 325 MG Tablet 650 MG PO (08:51)
[2023-04-18] MEDS: Menthol/Lanolin/Calamine/Znox 113 GM Tube 1 APPLIC TOPICAL (08:52)
[2023-04-18 09:03] VITALS: BP 142/87; PULSE 98; RESP 16; TEMP 36.4; O2SAT 97
--- NOTE | 2023-04-18 09:49 | PHA.DC.MR.R ---
Pharmacy [place] Med Reconciliation Pharmacy Service has performed discharge medication reconciliation for this patient. No new medications at time of discharge review. Medications reviewed are from previously reported home medications. The patient's discharge medication list was reviewed for discrepancies and discrepancies were resolved. Medications at Discharge Home Medications Ibandronate Sodium [Boniva] 150 mg PO Q30D 10/19/16 Omeprazole [Prilosec] 40 mg PO DAILY 10/19/16 acetaminophen 500 mg tablet 500 mg PO QHS chronic pain 10/19/16 aspirin 81 mg chewable tablet 81 mg PO DAILY@0800 as instructed by physician 10/19/16 benzonatate 100 mg capsule 100 mg PO 4X/DAY PRN PRN Cough ##20 10/19/16 calcium carbonate 600 mg calcium (1,500 mg) tablet 600 mg PO DAILY bone health 10/19/16 cholecalciferol (vitamin D3) 125 mcg (5,000 unit) capsule 5,000 unit PO DAILY bone health 10/19/16 levothyroxine 100 mcg tablet 100 mcg PO DAILY thyroid 10/19/16 buspirone 15 mg tablet 15 mg PO TID depression 04/16/23 levothyroxine 125 mcg tablet 125 mcg PO DAILY thyroid 04/16/23 levothyroxine 75 mcg tablet 75 mcg PO .COMPLEX thyroid 04/16/23 ooifwusr-eja-orrdq acid 0.4 mg-lycopene 300 mcg-lutein 250 mcg tablet (Centrum Silver) 1 tab PO DAILY vitamin 04/16/23 omeprazole 40 mg capsule,delayed release 40 mg PO DAILY heartburn 04/16/23 simvastatin 10 mg tablet 10 mg PO DAILY cholesterol 04/16/23 food supplemt, lactose-reduced 0.08 gram-1.5 kcal/mL oral liquid (Ensure Plus High Protein) 120 ml PO TIDCM #0 mL 04/17/23
[2023-04-18] MEDS: traMADol 50 MG Tablet PO (10:59)
== END 2023-04-18 11:23 | disposition home health service (06) | DRG 853 ==
LOC: ED 20:34 → ICU 21:47 → PCU 04-10 14:48
PROVIDERS: Hospitalist; Internal Medicine; Admitting Provider Surgery; Emergency Provider Emergency Medicine; PCP Internal Medicine; Visit Provider Surgery
DX: A41.9 Sepsis, unspecified organism (principal); R65.21 Severe sepsis with septic shock; N17.0 Acute kidney failure with tubular necrosis; E43 Unspecified severe protein-calorie malnutrition; I21.A1 Myocardial infarction type 2; K56.609 Unspecified intestinal obstruction, unspecified as to partial versus complete obstruction; E87.0 Hyperosmolality and hypernatremia; E87.20 Acidosis, unspecified; I47.1 Supraventricular tachycardia; K56.7 Ileus, unspecified; I82.612 Acute embolism and thrombosis of superficial veins of left upper extremity; Z68.1 Body mass index [BMI] 19.9 or less, adult; J44.9 Chronic obstructive pulmonary disease, unspecified; I70.0 Atherosclerosis of aorta; E03.9 Hypothyroidism, unspecified; K40.90 Unilateral inguinal hernia, without obstruction or gangrene, not specified as recurrent; K29.70 Gastritis, unspecified, without bleeding; E78.5 Hyperlipidemia, unspecified; K42.9 Umbilical hernia without obstruction or gangrene; K21.9 Gastro-esophageal reflux disease without esophagitis; E87.8 Other disorders of electrolyte and fluid balance, not elsewhere classified; E83.39 Other disorders of phosphorus metabolism; Z79.83 Long term (current) use of bisphosphonates; Z87.891 Personal history of nicotine dependence; Z80.0 Family history of malignant neoplasm of digestive organs; M81.0 Age-related osteoporosis without current pathological fracture
CPT/HCPCS: 36415; 36569; 71045; 71275; 74018; 74019; 74174; 74177; 80048; 80053; 80202; 81001; 82077; 82962; 83605; 83690; 83735; 84100; 84145; 84439; 84443; 84478; 84484; 85025; 85610; 85730; 87040; 87086; 87088; 87186; 88307; 93005; 93306; 93971; 97110; 97116; 97162; 97166; 97530; 97535; 97802; 97803; 99285; J7030; J7040; J7050; J7120; Q9967; A4216; C1751; J2405; J3490

== ENCOUNTER 2024-08-12 08:00 | Day surgery (SDC) | payer MEDICARE, SELFPAY ==
--- NOTE | 2024-08-12 08:14 | EKG12_ITS ---
Test Reason : PREOP Blood Pressure : */* mmHG Vent. Rate : 83 BPM Atrial Rate : 83 BPM P-R Int : 138 ms QRS Dur : 98 ms QT Int : 380 ms P-R-T Axes : 79 86 70 degrees QTcB Int : 446 ms Normal sinus rhythm Incomplete right bundle branch block Borderline ECG Confirmed by Manjit Salinas ([id number]), editorial cartoonist MEE SEN ([id number]) on 08/13/2024 8:19:20 AM Referred By: Domingo Johnson Confirmed By: Manjit Salinas
[2024-08-12 08:51] LABS: Hematocrit 37.4 % (37-47); Hemoglobin 11.9 g/dL (12.0-15.0); Mean Corp Hgb Conc 31.8 g/dL (32-36); Mean Corpuscular Hgb 30.9 pg (27.0-32.0); Mean Corpuscular Volume 97.1 fL (81-99); Mean Platelet Vol. 9.3 fl (6.2-12.0); Platelet Count 574 K/mm3 (150-450); RBC Distribution Width CV 14.3 % (11.6-14.6); Red Blood Count 3.85 M/mm3 (4.2-5.4); White Blood Count 8.5 K/mm3 (4.4-11.0)
== END 2024-08-20 08:50 | disposition home or self-care (01) ==
LOC: PAT 12-15 10:39
PROVIDERS: Anesthesiology; PCP Internal Medicine; Referring Provider Surgery; Visit Provider Surgery
DX: Z01.818 Encounter for other preprocedural examination (principal); Z01.810 Encounter for preprocedural cardiovascular examination; I45.10 Unspecified right bundle-branch block; Z53.9 Procedure and treatment not carried out, unspecified reason
CPT/HCPCS: 36415; 84443; 85027; 93005

== ENCOUNTER 2024-08-17 08:58 | Day surgery (SDC) | payer MEDICARE, SELFPAY ==
[2024-08-17 09:24] VITALS: BP 133/54; PULSE 105; RESP 18; TEMP 37.2; O2SAT 97; BMI 18.1
--- NOTE | 2024-08-17 09:47 | PRE.ANES_ITS ---
ASA Classification* ASA Classification ASA Classification: 2 Assessment & Plan Anesthesia* Anesthesia Assessment Anesthesia Assessment: Discussed sedation and/or anesthesia options, risks, benefits, and alternatives with patient/parents/legal guardian/POA. Questions invited. The patient/parents/legal guardian/POA seems to understand and agrees to proceed with anesthesia plan. Reviewed the physical assessment, medical history, allergy history and patient home medications list prior to surgery/procedure/anesthetic and documented any changes. Performed airway and anesthesia risk assessments. Anesthesia Type Anesthesia Type: MAC History Source History Obtained from:: Patient and Chart Anesthesia Focused Assessment* Temperature: 98.9 F Pulse Rate: 105 Blood Pressure: 133/54 Respiratory Rate: 18 Pulse Ox: 97 Oxygen Delivery Method: Room Air Airway Assessment Mouth opens: >3 cm Mallampati Score: II Teeth Condition: Dentures (Patient has upper and lower dentures. They are out.) Neck Range of motion (ROM): Full ROM Focused Labs Anesthesia Preop lab: CBC WBC 8.5 K/mm3 (4.4-11.0) 08/12/24 08:33 RBC 3.85 M/mm3 (4.2-5.4) L 08/12/24 08:33 Hgb 11.9 g/dL (12.0-15.0) L 08/12/24 08:33 Hct 37.4 % (37-47) 08/12/24 08:33 Plt Count 574 K/mm3 (150-450) H 08/12/24 08:33 CHEMISTRY Potassium 3.8 mmol/L (3.5-5.1) 04/17/23 05:14 Sodium 137 mmol/L (136-145) 04/17/23 05:14 Magnesium 1.6 mg/dL (1.6-2.6) 04/17/23 05:14 Phosphorus 2.3 mg/dL (2.5-4.9) L 04/17/23 05:14 BUN 14 mg/dL (7-18) 04/17/23 05:14 Creatinine 0.40 mg/dL (0.55-1.02) L 04/17/23 05:14 Glucose 103 mg/dL (74-106) 04/17/23 05:14 POC Glucose 97 mg/dL (74-106) 04/17/23 23:40 TSH 15.600 uIU/mL (0.358-3.740) H 08/12/24 08:33 COAG PT 21.3 SECONDS (11.7-14.9) H 04/14/23 06:29 Pre-Assessment Diagnosis/Proposed Procedure Planned Operative Procedure(s): CSCOPE Anesthesia History 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 When Was Last Pacemaker Check QUESTION #4 FULL TEXT: You/Your Family Experience fever (hyperthermia) with Anesthesia Last Oral Intake Last Oral intake: Last Oral Intake NPO since 00:00 08/17/24 09:24 Meds taken in AM with sips of No 08/17/24 09:24 water? Meds patient instructed to take am of surgery PONV PONV - system support technician: PONV - system support technician Female Yes 08/11/24 11:33 HX of Motion Sickness No 08/11/24 11:33 HX of N/V After Surgery No 08/11/24 11:33 Non-Smoker Yes 08/11/24 11:33 Duration of Surgery greater No 08/11/24 11:33 than 60 minutes Number of Risk Factors 2 08/11/24 11:33 PONV Score Moderate Risk 08/11/24 11:33 Height & Weight Height & Weight: Anesthesia: Height & Weight Height 5 ft 4 in 08/17/24 09:24 Weight: 47.9 kg 08/17/24 09:24 Body Mass Index (BMI) 18.1 08/17/24 09:24 Respiratory Assessment Respiratory Assessment - system support technician: Respiratory Tract Infection Hx - system support technician Hx Respiratory Tract Infection No 08/11/24 11:33 STOP Sleep Apnea STOP Sleep Apnea - system support technician: STOP Sleep Apnea - system support technician Hx Hypertension No 08/11/24 11:33 Hx Sleep Apnea No 08/11/24 11:33 CPAP No 08/11/24 11:33 BIPAP Do you snore loudly (louder No 08/11/24 11:33 than talking or can be heard Do you often feel tired/ No 08/11/24 11:33 fatigued/ sleepy during daytime? Has anyone observed you stop No 08/11/24 11:33 breathing during sleep? STOP Results Negative 08/11/24 11:33 QUESTION #5 FULL TEXT : Do you snore loudly (louder than talking or can be heard through closed doors)? 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 Specify any problems Hx of Preganancy in last 3 N/A 08/11/24 11:33 Months Nurse Filling Out Transfusion NBUCHER 08/11/24 11:33 & Questions: Date: 08/11/24 08/11/24 11:33 Time: 11:34 08/11/24 11:33 Patient unable to answer at this time (ie. confused, unrespo /Reproduction History /Reproductive History - system support technician: /Reproductive Hx- system support technician Hx Now Gestational Age (in weeks): EDC: Hx Hx Para Hx Section SAB No 08/11/24 11:33 PFSH Medical History Wears glasses Wears dentures Thyroid disease High cholesterol GERD (gastroesophageal reflux disease) History of echocardiogram History of stress test Former smoker Superficial venous thrombosis of left arm Skin cancer Rheumatoid arthritis Home Medications ?Medication ?Instructions ?Recorded ?Last Taken ?Type acetaminophen 500 mg tablet 500 mg PO QHS PRN chronic pain 10/19/16 Unknown History aspirin 81 mg chewable tablet 81 mg PO DAILY@0800 as instructed 10/19/16 08/10/24 History by physician calcium carbonate 600 mg PO DAILY bone health 10/19/16 Unknown History cholecalciferol (vitamin D3) 125 5,000 unit PO DAILY bone health 10/19/16 Unknown History mcg (5,000 unit) capsule buspirone 15 mg tablet 15 mg PO TID depression 04/16/23 Unknown History levothyroxine 125 mcg tablet 125 mcg PO DAILY thyroid 04/16/23 Unknown History levothyroxine 75 mcg tablet 75 mcg PO SUWE thyroid 04/16/23 Unknown History hxgbevhu-gxf-fogoz acid 0.4 1 tab PO DAILY vitamin 04/16/23 Unknown History mg-lycopene 300 mcg-lutein 250 mcg tablet (Centrum Silver) omeprazole 40 mg capsule,delayed 40 mg PO DAILY heartburn 04/16/23 Unknown History release simvastatin 10 mg tablet 10 mg PO DAILY cholesterol 04/16/23 Unknown History tramadol 50 mg tablet 50 - 100 mg (1 - 2 x 50 mg) PO Q6H 04/19/23 Unknown Rx PRN pain 5 days #20 tabs famotidine 20 mg tablet 20 mg PO QHS 08/11/24 Unknown History Allergy/AdvReac Type Severity Reaction Status Date / Time Penicillins Allergy Unknown Verified 08/17/24 09:22 Family History Other Colon cancer Heart disease Rheumatoid arthritis Surgical History History of colonoscopy S/P small bowel resection (04/18/23) H/O wrist surgery History of ankle surgery Social History Smoking Status: Former smoker Review of Systems (Anesthesia) ROS Narrative System reviewed and no additional complaints, except as documented.
[2024-08-17 09:53] VITALS: BP 133/54; PULSE 105; RESP 18; TEMP 37.2; O2SAT 97
--- NOTE | 2024-08-17 09:54 | PCM.HP.BLA ---
History and Physical Date of Admission: 08/17/24 Intake Vital Signs 04/17/2313:09 07/07/2408:25 Height 5 ft 4 in 5 ft 4 in Weight: 116 lb 2 oz BMI 19.9 BP 131/79 H Blood Pressure Location Rt brachial Position Sitting Respiration 18 Pulse 93 Pulse Source Monitor Temp 97.2 F L Temp Source Temporal Pulse Oximetry (%) 98 Oxygen Delivery Method room air Intake Visit Reasons: DISCUSS HERNIA, COLONOSCOPY Chief Complaint: discuss hernia, colonoscopy Is patient in pain?: No Allergies Penicillins Allergy (Verified 07/07/24 08:26) Unknown Medications ?Medication ?Instructions ?Recorded ?Confirmed ?Type Ibandronate Sodium [Boniva] 150 mg PO Q30D 10/19/16 07/07/24 History Omeprazole [Prilosec] 40 mg PO DAILY 10/19/16 07/07/24 History acetaminophen 500 mg tablet 500 mg PO QHS chronic pain 10/19/16 07/07/24 History aspirin 81 mg chewable tablet 81 mg PO DAILY@0800 as instructed 10/19/16 07/07/24 History by physician benzonatate 100 mg capsule 100 mg PO 4X/DAY PRN PRN Cough #20 10/19/16 07/07/24 Rx caps calcium carbonate 600 mg PO DAILY bone health 10/19/16 07/07/24 History cholecalciferol (vitamin D3) 125 5,000 unit PO DAILY bone health 10/19/16 07/07/24 History mcg (5,000 unit) capsule levothyroxine 100 mcg tablet 100 mcg PO DAILY thyroid 10/19/16 07/07/24 History buspirone 15 mg tablet 15 mg PO TID depression 04/16/23 07/07/24 History levothyroxine 125 mcg tablet 125 mcg PO DAILY thyroid 04/16/23 07/07/24 History levothyroxine 75 mcg tablet 75 mcg PO .COMPLEX thyroid 04/16/23 07/07/24 History grcuebxc-yfy-oxjgj acid 0.4 1 tab PO DAILY vitamin 04/16/23 07/07/24 History mg-lycopene 300 mcg-lutein 250 mcg tablet (Centrum Silver) omeprazole 40 mg capsule,delayed 40 mg PO DAILY heartburn 04/16/23 07/07/24 History release simvastatin 10 mg tablet 10 mg PO DAILY cholesterol 04/16/23 07/07/24 History food supplemt, lactose-reduced 120 ml PO TIDCM #0 mL 04/17/23 07/07/24 Rx 0.08 gram-1.5 kcal/mL oral liquid (Ensure Plus High Protein) tramadol 50 mg tablet 50 - 100 mg (1 - 2 x 50 mg) PO Q6H 04/19/23 07/07/24 Rx PRN pain 5 days #20 tabs Have you fallen in the past year?: No PFSH Medical History Superficial venous thrombosis of left arm Skin cancer Rheumatoid arthritis Surgical History S/P small bowel resection H/O wrist surgery History of ankle surgery Family History Other Colon cancer Heart disease Rheumatoid arthritis Social History Smoking Status: Former smoker HPI HPI HPI: Patient is a 74-year-old female here for colonoscopy and for her right inguinal hernia. The patient is known to me because I did her surgery a year ago for an incarcerated right inguinal hernia. At that time she had a bowel resection. She is here because she had a colonoscopy 6 years ago and was recommended to repeat in due to history of polyps. She would also like to address the right inguinal hernia as during the initial surgery it was not repaired. Exam Const General: cooperative Orientation: alert and oriented x3 HENMT Head: normal to inspection Neck Neck: normal visual inspection and full ROM Chest Chest palpation & inspection: normal inspection of the chest Resp Effort & Inspection: normal respiratory effort Auscultation: clear to auscultation bilaterally Cardio Rate: regular rate Rhythm: regular rhythm GI Inspection: non-distended Palpation: soft and nontender Skin General: no rashes or lesions noted Neuro General: patient alert and patient oriented x3 Extrem General: full ROM Psych Appearance: grossly normal Mental Status: mental status grossly normal Assessment and Plan Assessment and Plan (1) Right inguinal hernia: Status: Acute Plan: Patient has a right inguinal hernia which was incarcerated last year and I performed a small bowel resection. At that time I closed the peritoneum but nothing else for the hernia due to contamination. At this time the patient would like it repaired so I discussed robotic assisted laparoscopic right inguinal hernia repair with mesh. I discussed the risks including but not limited to bleeding, infection, injury other organ such as the bowel or bladder or ureter. Patient understands the risks and is willing to proceed. (2) History of colon polyps: Status: Acute Plan: Patient has a history of colon polyps and had several polyps removed 6 years ago. She was recommended to repeat but did not because of her surgery. She is due for colonoscopy for surveillance. I will perform the colonoscopy before the hernia repair. I explained endoscopy in detail to the patient. I explained the risks including but not limited to stroke or heart attack with anesthesia, perforation of the GI tract, bleeding, infection. I explained that any of these could necessitate further emergency surgery. The patient understands and all questions were answered sufficiently. The patient wishes to proceed with procedure. Domingo Johnson MD Pager: [facility] [address] [place] [address], [address] [place] [address] Office: I have examined the patient and the H&P has been reviewed. There are no clinical changes since date of exam.
--- NOTE | 2024-08-17 10:26 | OP.COLON_ITS ---
Patient Name: Eusebia Garrison Procedure Date: 08/17/2024 10:01 AM Date of : 1950 Age: 74 Procedure: Colonoscopy Indications: High risk colon cancer surveillance: Personal history of colonic polyps Providers: Domingo Johnson MD Medicines: Propofol per Anesthesia Patient Profile: This is a 74 year old female. Refer to note in patient chart for documentation of history and physical. Last Colonoscopy: 5 years ago. Complications: No immediate complications. Procedure: Pre-Anesthesia Assessment: - Prior to the procedure, a History and Physical was performed, and patient medications and allergies were reviewed. The patient's tolerance of previous anesthesia was also reviewed. The risks and benefits of the procedure and the sedation options and risks were discussed with the patient. All questions were answered, and informed consent was obtained. Prior Anticoagulants: The patient has taken no anticoagulant or antiplatelet agents. After reviewing the risks and benefits, the patient was deemed in satisfactory condition to undergo the procedure. After I obtained informed consent, the scope was passed under direct vision. Throughout the procedure, the patient's blood pressure, pulse, and oxygen saturations were monitored continuously. The Colonoscope was introduced through the anus and advanced to the cecum, identified by appendiceal orifice and ileocecal valve. The colonoscopy was performed without difficulty. The patient tolerated the procedure well. The quality of the bowel preparation was good. The ileocecal valve, appendiceal orifice, and rectum were photographed. Scope In: 10:08:34 AM Scope Withdrawal Time 0 hours 7 minutes 13 seconds Scope Out: 10:24:02 AM Total Procedure Duration Time 0 hours 15 minutes 28 seconds Findings: The entire examined colon appeared normal on direct and retroflexion views. Impression: - The entire examined colon is normal on direct and retroflexion views. - No specimens collected. Recommendation: - Discharge patient to home. - Resume previous diet. - Continue present medications. - Repeat colonoscopy is not recommended due to current age (66 years or older) for screening purposes. Procedure Code(s): --- Professional --- 07778, Colonoscopy, flexible; diagnostic, including collection of specimen(s) by brushing or washing, when performed (separate procedure) Diagnosis Code(s): --- Professional --- Z86.010, Personal history of colonic polyps CPT copyright 2021 [employer]. All rights reserved. The codes documented in this report are preliminary and upon beater room supervisor review may be revised to meet current compliance requirements. Domingo Johnson MD 08/17/2024 10:25:50 AM This report has been signed electronically. Number of Addenda: 0 Note Initiated On: 08/17/2024 10:01 AM
--- NOTE | 2024-08-17 10:26 | OP.CCLET_ITS ---
08/17/2024 Tanya Russell [address] [id number] Re : Colonoscopy procedure for Eusebia Garrison Dear Dr. Russell This procedure was performed on Saturday, August 17, 2024. My impressions and recommendations are as follows: Impressions : - The entire examined colon is normal on direct and retroflexion views. - No specimens collected. Recommendations : - Discharge patient to home. - Resume previous diet. - Continue present medications. - Repeat colonoscopy is not recommended due to current age (66 years or older) for screening purposes. My findings are described in the full procedure note, which is enclosed. If I can be of further assistance, please feel free to contact me at Doctor phone number(s): , Work: . Sincerely, Domingo Johnson MD 08/17/2024 10:25:50 AM This report has been signed electronically.
[2024-08-17 10:28] VITALS: BP 133/54; BP 82/49; PULSE 84; RESP 16; TEMP 36.8; O2SAT 98
[2024-08-17 10:30] VITALS: BP 133/54; BP 76/47; BP 82/49; PULSE 84; RESP 16; RESP 18; TEMP 36.8; O2SAT 97; O2SAT 98
--- NOTE | 2024-08-17 10:30 | PCM.POST.ANE ---
Anesthesia: Postop Eval I Current Vital Signs Temperature: 98.2 F Pulse Rate: 84 Blood Pressure: 82/49 Respiratory Rate: 18 Pulse Ox: 98 Oxygen Delivery Method: Room Air Assessment Airway patent: Yes Spontaneous unlabored respirations: Yes Mental status: Asleep nausea: No Vomiting: No Anesthesia Complication: No Fluid Hydration Crystalloid volume administer (ml): 30 Total IV fluid infused: 30 Progress Note Anesthesia document: Postop Eval 1 completed: Yes
[2024-08-17 10:35] VITALS: BP 133/54; BP 89/70; PULSE 85; RESP 16; O2SAT 98
[2024-08-17 10:40] VITALS: BP 101/67; BP 133/54; PULSE 81; RESP 16; TEMP 36.4; O2SAT 99
--- NOTE | 2024-08-17 13:58 | PCM.POSTANE2 ---
Anesthesia Postop Eval I Sum Postop Eval Completion status Anesthesia document: Postop Eval 1 completed: Yes Anesthesia Postop Eval I Summary Anesthesia Postop Eval I Summary: Anesthesia Postop Eval I: Assessment Summary Airway patent Yes 08/17/24 10:30 [email or web address] Spontaneous unlabored Yes 08/17/24 10:30 [email or web address] respirations Mental status Asleep 08/17/24 10:30 [email or web address] nausea No 08/17/24 10:30 [email or web address] Vomiting No 08/17/24 10:30 [email or web address] Anesthesia Postop Eval I: Fluid Summary Crystalloid volume administer 30 08/17/24 10:30 [email or web address] (ml) Colloids volume administered ( ml) Blood Product volume administered (ml) Total IV fluid infused 30 08/17/24 10:30 [email or web address] Anesthesia Postop Eval I: Summary Notes Anesthesia Complication No 08/17/24 10:30 [email or web address] Anesthesia Complication Comment: Post-operative progress note Anesthesia: Postop Eval II Evaluation Mental status: Awake and Calm Pain Level: 0 nausea: No Vomiting: No Complications Anesthesia Complication: No
== END 2024-08-17 11:14 | disposition home or self-care (01) ==
LOC: EN 08:59 → AC 09:00
PROVIDERS: PCP Internal Medicine; Referring Provider Internal Medicine; Visit Provider Surgery
PROC: 0DJD8ZZ Inspection of Lower Intestinal Tract, Via Natural or Artificial Opening Endoscopic (ICD-10-PCS; CPT 45378; principal; 2024-08-17 09:55)
DX: Z12.11 Encounter for screening for malignant neoplasm of colon (principal); K40.90 Unilateral inguinal hernia, without obstruction or gangrene, not specified as recurrent; Z87.891 Personal history of nicotine dependence; Z86.0100 Personal history of colon polyps, unspecified; Z80.0 Family history of malignant neoplasm of digestive organs
CPT/HCPCS: G0105; A4216; J2405